=== PATIENT | female | born 1985 | race Caucasian/White ===

== ENCOUNTER 2016-05-19 18:34 | Emergency (ER) | payer OTHER ==
[2016-05-19] MEDS ORDERED: Morphine INJ* 2 MG/ML 1 ML CARPUJECT IV ONE (19:24)
[2016-05-19] MEDS ORDERED: Ondansetron INJ* 2 MG/ML VIAL IV ONE (19:24)
[2016-05-19] MEDS ORDERED: NS 0.9% 1000 ML* 1,000 ML IV ONE (19:24)
--- NOTE | 2016-05-19 19:37 | ED ---
Abdominal Pain/Female - HPI Summary HPI Summary: PT CAME WITH FLANK PAINS RT SIDE. PT WAS HERE FOR THE SAME COMPLAINTS YESTERDAY AND WAS SENT TO [facility]. PT DEVELOPED FLANK PAINS SINCE TWO HOURS AND PAIN IS 10/10. DENIES NAUSEA AND VOMITING. DENIES FEVER. DENIES VAG DISCHARGE AND BLEEDING. - History of Current Complaint Chief Complaint: EDFlankPain Stated Complaint: LOWER BACK PAIN Time Seen by Provider: 05/19/16 19:12 Hx Obtained From: Patient Hx Last Menstrual Period: 07/10/14 ?: Yes Onset/Duration: Sudden Onset Timing: Hours Severity Initially: Severe Severity Currently: Severe Pain Intensity: 10 Location: Flank - RT Radiates to: Flank Character: Sharp Aggravating Factor(s): Movement Alleviating Factor(s): Nothing Associated Signs and Symptoms: Positive: Back Pain Simlar Episode/Dx as:: YES - Risk Factors Ectopic Risk Factor: Negative Ovarian Torsion Risk Factor: Negative Allergies/Adverse Reactions: Allergies Allergy/AdvReac Type Severity Reaction Status Date / Time No Known Allergies Allergy Verified 04/09/16 11:47 PMH/Surg Hx/FS Hx/Imm Hx Endocrine/Hematology History: Denies: Hx Anticoagulant Therapy, Hx Diabetes, Hx Thyroid Disease Cardiovascular History: Reports: Hx Aneurysm Respiratory History: Denies: Hx Asthma, Hx Chronic Obstructive Pulmonary Disease (COPD) GI History: Denies: Hx Ulcer History: Reports: Hx Kidney Infection - Surgical History Surgery Procedure, Year, and Place: tubes in ears as a child, CSECTION 01/2012 - Immunization History Date of Tetanus Vaccine: Unk Date of Influenza Vaccine: Unk Infectious Disease History: No Infectious Disease History: Denies: Hx Clostridium Difficile, Hx Hepatitis, Hx Human Immunodeficiency Virus (HIV), Hx of Known/Suspected MRSA, Hx Shingles, Hx Tuberculosis, Hx Known/ Suspected VRE, Hx Known/Suspected VRSA, History Other Infectious Disease, Traveled Outside the [place] in Last 30 Days - Family History Known Family History: Positive: None, Cardiac Disease, Hypertension, Diabetes - Social History Lives: With Family Alcohol Use: None Alcohol Amount: 2-3/week Substance Use Type: Reports: None Smoking Status (MU): Never Smoked Tobacco Have You Smoked in the Last Year: No Review of Systems Positive: flank pain All Other Systems Reviewed And Are Negative: Yes Physical Exam Triage Information Reviewed: Yes Vital Signs On Initial Exam: Initial Vitals Temp Pulse Resp BP Pulse Ox 97.2 F 121 20 143/75 100 05/19/16 18:39 05/19/16 18:39 05/19/16 18:39 05/19/16 18:39 05/19/16 18:39 Vital Signs Reviewed: Yes Appearance: Positive: Well-Appearing Skin: Positive: Warm Head/Face: Positive: Normal Head/Face Inspection Eyes: Positive: Normal ENT: Positive: Normal ENT inspection, Pharynx normal Neck: Positive: Supple, Nontender Respiratory/Lung Sounds: Positive: Clear to Auscultation, Breath Sounds Present Cardiovascular: Positive: Normal, RRR, Pulses are Symmetrical in both Upper and Lower Extremities Abdomen Description: Positive: CVA Tenderness (R) Bowel Sounds: Positive: Present Musculoskeletal: Positive: Normal Neurological: Positive: Normal Diagnostics - Vital Signs Vital Signs Temp Pulse Resp BP Pulse Ox 05/19/16 18:39 97.2 F 121 20 143/75 100 - Laboratory Result Diagrams: 05/19/16 19:40 05/19/16 19:40 Lab Statement: Any lab studies that have been ordered have been reviewed, and results considered in the medical decision making process. - Ultrasound No standard instances Ultrasound Interpretation: No Acute Changes, Positive (See Comments) - IMPRESSION: MILD TO MODERATE RIGHT HYDRONEPHROSIS, NEW. Ultrasound Interpretation Completed By: Radiologist Re-Evaluation - Re-Evaluation First Eval Re-Evaluation Time: 20:52 - THE PATIENT WILL BE TRANSFERED TO AND D FOR FURTHER EVALUATION. Abdominal Pain Fem Course/Dx - Diagnoses Provider Diagnoses: Flank pain, acute, , Renal colic on right side - Provider Notifications Discussed Care Of Patient With: D/W ACCOUNTING TECHNICIAN DR VALLADARES AND RECOMMENDED US RT RENAL AND CALL HER. 840PM. D/W DR VALLADARES AND RECOMMENDED TO TRANSFER THE PT TO L AND D FOR FURTHER MANGEMENT. Time Discussed With Above Provider: 19:53 Discharge - Discharge Plan Condition: Stable Disposition: OTHER Discharge Disposition Comment: THE PATIENT IS GOING TO L AND D FOR FURTHER EVALUATION. Patient Education Materials: Renal Colic (ED), (ED) Referrals: No Primary Care Phys,NOPCP [Primary Care Provider] -
[2016-05-19 19:55] LABS: Hematocrit 36 % (35-47); Hemoglobin 11.6 g/dl (12.0-16.0); Mean Corpuscular HGB Conc 32 g/dl (31-36); Mean Corpuscular Hemoglobin 27 pg (27-31); Mean Corpuscular Volume 83 fL (80-97); Mean Platelet Volume 10 um3 (7.4-10.4); Red Blood Count 4.31 10^6/ul (4.0-5.4); Red Cell Distribution Width 14 % (10.5-15)
[2016-05-19 20:03] LABS: Urine Bacteria 1+ (Absent); Urine Bilirubin Negative (Negative); Urine Glucose Negative (Negative); Urine Nitrite Negative (Negative)
[2016-05-19 20:09] LABS: Albumin 3.3 g/dL (3.2-5.2); BUN/Creatinine Ratio 14.8 (8-20); EGFR African American 172.9 (>60); EGFR Non-African American 134.4 (>60); Globulin 3.3 g/dL (2-4); Potassium 3.5 mmol/L (3.5-5.0); Total Bilirubin 0.3 mg/dL (0.2-1.0); Total Protein 6.6 g/dL (6.4-8.9)
--- NOTE | 2016-05-19 20:43 | RAD ---
INDICATION: Right flank abdominal pain. COMPARISON: Comparison is made with a prior renal ultrasound from May 18, 2016. TECHNIQUE: Multiple real-time images of the right kidney were obtained. FINDINGS: The right kidney is normal in size shape and echogenicity. The kidney measured 11.5 x 7.3 x 7.7 cm. No focal renal abnormality is seen. There is mild to moderate dilatation of the right renal calyces and pelvis which are new from the prior study. There are bilateral ureteral jets present. IMPRESSION: MILD TO MODERATE RIGHT HYDRONEPHROSIS, NEW.
[2016-05-19 21:08] VITALS: BP 92/51
[2016-05-19] MEDS ORDERED: oxyCODONE/Acetamin 5/325 MG* TAB PO PRN (22:35)
== END 2016-05-19 21:05 ==
LOC: ED 18:34
DX: O26.839 Pregnancy related renal disease, unspecified trimester (principal); N23 Unspecified renal colic; N13.30 Unspecified hydronephrosis
CPT/HCPCS: 36415; 76775; 80053; 81003; 81015; 83690; 85025; 87086; 96374; 99282; J2270; J2405

== ENCOUNTER 2016-05-19 21:23 | Inpatient (IN) | payer OTHER ==
[2016-05-19] MEDS ORDERED: Ondansetron INJ* 2 MG/ML VIAL IV PRN (23:03)
[2016-05-19] MEDS ORDERED: Sodium Citrate/Citric Acid* 15 ML UDC PO ONE (23:04)
[2016-05-19] MEDS: oxyCODONE/Acetamin 5/325 MG* TAB PO PRN (23:58)
[2016-05-20] MEDS: oxyCODONE/Acetamin 5/325 MG* TAB PO PRN ×3 (03:32→18:07)
[2016-05-20] MEDS ORDERED: Morphine INJ* 10 MG/ML 1 ML CARPUJECT ONE (05:37)
[2016-05-20] MEDS ORDERED: HYDROmorphone INJ* 1 MG/ML CARPUJECT SYRINGE IV SLOW PU PRN (09:10)
[2016-05-20] MEDS ORDERED: HYDROmorphone INJ* 2 MG/ML CARPUJECT SYRINGE ONE (09:39)
[2016-05-20] MEDS ORDERED: Morphine INJ* 2 MG/ML 1 ML CARPUJECT IV ONE (14:00)
--- NOTE | 2016-05-20 15:22 | CONS ---
CONSULTATION REPORT: DATE OF CONSULT: 05/20/16 The patient is in Labor and Delivery. HISTORY OF PRESENT ILLNESS: I was asked by Dr. Conner to see this 30-year-old white female who is 33 weeks because of symptoms of right renal colic. Ms. Lancaster was doing fine until 4 days ago when she had gross hematuria. It was totally asymptomatic, not associated with any flank or abdominal pain and did not have any increasing frequency or urgency. She was evaluated at [facility]. She had a urine culture done, she felt fine. The culture was negative. She was then evaluated in Labor and Delivery 2 days ago and was sent home. Yesterday, the patient presented to the emergency room with symptoms of right renal colic. The pain was very severe. She had a renal ultrasound which showed mild to moderate right hydronephrosis. No calculi were noted in the kidneys. The patient was admitted for IV fluids and pain control. consultation is obtained. The patient has been having on and off episodes of pain that have been well controlled with Dilaudid. Her last pain medication was about 3 hours ago. She has been pain free since that time. Her past history is negative for any history of renal diseases or calculi. She reports having had a possible episode of pyelonephritis during her previous for which she received IV antibiotics. There is however, no history of renal calculi. The patient is otherwise in good health. She denies any frequent urinary tract infections. PHYSICAL EXAM: She is comfortable. Her vital signs are normal. The positive finding incudes moderate right CVA tenderness. IMPRESSION: Episodes of right renal colic, most likely secondary to passage of a right ureteral calculus. The calculus is not visualized on our present imaging. Considering the hydronephrosis is only moderate, and there good equal bilateral ureteral jets, and that the pain is well controlled, and there is no evidence of any infection, the plan is for conservative management with IV fluids and pain medication as needed. I would recommend straining her urine. If the pain becomes difficult to control , then the patient will be taken to the operating room for right ureteroscopy and stent placement. A follow up renal ultrasound will be done tomorrow. I discussed the above plans with the patient and with her mother and all their questions were answered. [id number]/[facility] #: [id number] TIGIST
[2016-05-21 08:19] VITALS: BP 97/46
[2016-05-21] MEDS: oxyCODONE/Acetamin 5/325 MG* TAB PO PRN (09:37)
--- NOTE | 2016-05-21 10:14 | RAD ---
HISTORY: Follow-up hydronephrosis COMPARISONS: May 19, 2016 TECHNIQUE: Multiple transverse and longitudinal ultrasound images were obtained of the kidneys and bladder using grayscale and color Doppler imaging. FINDINGS: RIGHT KIDNEY: The right kidney is normal in shape, size, contour, and echogenicity. There is moderate pelviectasis with interval resolution of the caliectasis. The right kidney measures 12.3 x 6.7 x 5.8 cm. LEFT KIDNEY: The left kidney is normal in shape, size, contour, and echogenicity. There is no hydronephrosis or nephrolithiasis. The left kidney measures 11.6 x 6.8 x 4.7 cm. BLADDER: The bladder is smooth in contour. Bilateral ureteral jets are identified. The prevoid bladder is 145 cc. AORTA AND IVC: No images are submitted of the vasculature. RETROPERITONEUM: Unremarkable. OTHER: None. IMPRESSION: PERSISTENT BUT SLIGHTLY IMPROVED RIGHT HYDRONEPHROSIS.
--- NOTE | 2016-05-21 13:51 | DS ---
DISCHARGE SUMMARY: DATE OF ADMISSION: 05/19/16 DATE OF DISCHARGE: 05/21/16 HISTORY OF PRESENT ILLNESS: Mrs. Lancaster is a 30-year-old female at 33- 2/7 weeks' estimated gestational age. She was admitted on 05/19/16 with complaints of right flank pain. She was evaluated and diagnosed with right hydronephrosis, right renal calculi. She was treated with IV hydration, antiemetics, and pain medications, and observed on the floor. There was also a Urology consult by Dr. Spencer. On the day of discharge, the patient had a repeat ultrasound which showed slightly improved moderate right hydronephrosis. The patient's vital signs throughout her hospital stay remained stable. She was afebrile and clinically her pain improved with p.o. medications. The patient was discharged home. She is to follow with [facility] , and was given discharge instruction. Please refer to the patient's lab and radiology results for complete detail of her workup. [id number]/[facility] #: [id number] TIGIST
== END 2016-05-21 11:04 | disposition home or self-care (01) | DRG 566 ==
LOC: MCHOBOUT 21:23 → MCHOB 05-20 17:38
PROVIDERS: ADMIT Obstetrics & Gynecology; ATTEND Obstetrics & Gynecology
DX: O26.893 Other specified pregnancy related conditions, third trimester (principal); Z68.41 Body mass index [BMI] 40.0-44.9, adult; N13.30 Unspecified hydronephrosis; N23 Unspecified renal colic; O99.213 Obesity complicating pregnancy, third trimester; E66.01 Morbid (severe) obesity due to excess calories; O99.343 Other mental disorders complicating pregnancy, third trimester; F32.9 Major depressive disorder, single episode, unspecified; G43.909 Migraine, unspecified, not intractable, without status migrainosus; R31.0 Gross hematuria; Z3A.33 33 weeks gestation of pregnancy
CPT/HCPCS: 36415; 76770; 86850; 86900; 86901; A9270-GY; J1170; J2270

== ENCOUNTER 2016-06-03 12:35 | Observation (INO) | payer OTHER ==
[2016-06-03] MEDS ORDERED: Iohexol 180 (CONTRAST) 10 ML SDV IV ONE ×2 (14:44→16:38)
[2016-06-03 15:08] LABS: Hematocrit 34 % (35-47); Mean Corpuscular HGB Conc 32 g/dl (31-36); Mean Corpuscular Hemoglobin 27 pg (27-31); Mean Corpuscular Volume 84 fL (80-97); Mean Platelet Volume 11 um3 (7.4-10.4); Red Cell Distribution Width 14 % (10.5-15); White Blood Count 12.4 10^3/ul (3.5-10.8)
[2016-06-03] MEDS ORDERED: Morphine INJ* 10 MG/ML 1 ML CARPUJECT ONE (16:17)
[2016-06-03] MEDS ORDERED: cefTRIAXone VIAL(*) 1,000 MG VIAL ONE (16:39)
[2016-06-03] MEDS ORDERED: Chloroprocaine 2%* 20 ML VIAL ONE (16:56)
[2016-06-03] MEDS ORDERED: Propofol* 10 MG/ML 20 ML BTL IV PUSH ONE (16:56)
[2016-06-03] MEDS ORDERED: Sodium Citrate/Citric Acid* 15 ML UDC PO ONE (17:01)
[2016-06-03] MEDS ORDERED: Sodium Citrate/Citric Acid* 15 ML UDC ONE (17:03)
[2016-06-03] MEDS ORDERED: Phenylephrine IV* 40 MCG/ML 10 ML SYRINGE ONE ×2 (18:19→18:27)
[2016-06-03] MEDS ORDERED: Ondansetron INJ* 2 MG/ML VIAL ONE (18:50)
--- NOTE | 2016-06-03 19:22 | RAD ---
INDICATION: Right ureteral stone COMPARISONS: Ultrasound dated June 03, 2016 TECHNIQUE: Fluoroscopy was provided for a retrograde pyelogram and stent placement. Total fluoroscopy time is: 7 seconds FINDINGS: Spot images demonstrate contrast within a dilated right ureteral collecting system. A right ureteral stent is noted. IMPRESSION: FLUOROSCOPY WAS PROVIDED FOR A RETROGRADE PYELOGRAM AND STENT PLACEMENT CPT II Codes: 6045F
[2016-06-03] MEDS ORDERED: Ondansetron INJ* 2 MG/ML VIAL IV PRN (19:23)
[2016-06-03] MEDS ORDERED: fentaNYL* 50 MCG/ML 2 ML VIAL (100 MCG VIAL) IV PRN (19:23)
[2016-06-03 19:46] VITALS: BP 149/86
--- NOTE | 2016-06-04 11:28 | OP ---
DATE OF OPERATION: 06/03/16 - ROOM #112 DATE OF : 89 SURGEON: Samuel Spencer MD ANESTHESIOLOGIST: Dr. Macho Teran. ANESTHESIA: Spinal. PRE-OP DIAGNOSES: 1. Right renal colic. 2. Right hydronephrosis. 3. 35 weeks' gestation. POST-OP DIAGNOSES: 1. Right renal colic. 2. Right hydronephrosis. 3. 35 weeks' gestation. 4. Proximal right ureteral calculus (6 to 7 mm). OPERATIVE PROCEDURES: 1. Cystoscopy. 2. Right ureteroscopy and laser lithotripsy of right ureteral calculus. 3. Right retrograde pyelography and placement of right ureteral stent (6 Niuean ). INDICATIONS FOR PROCEDURE: Ms. Lancaster is a 30-year-old white female who is 35 weeks and whom I saw 2 weeks ago because of symptoms of right renal colic. At that time, renal ultrasound showed mild to moderate hydronephrosis. No calculus was noted on the ultrasound. She was managed conservatively and did fine. She presented back 2 days ago with recurrence of the Rt renal colic and renal ultrasound showed moderate right hydronephrosis and no ureteral jets noted from the right ureteral orifice. Because of the above history and findings and the recurrent episodes of pain, the above procedure was advised and accepted. PATHOLOGY AT CYSTOSCOPY: The bladder mucosa showed diffuse prominence and congestion of the submucosal veins consistent with the third stage of . Extrinsic compression was noted on the bladder from the gravid uterus. Upon right retrograde pyelography, there was moderate degree of hydronephrosis. Upon right ureteroscopy, a 6 to 7 mm calculus was noted in the proximal right ureter. The calculus was impacted. It had the gross appearance of a calcium phosphate stone. Hydronephrotic drip was noted from the kidney following the placement of the stent. DESCRIPTION OF PROCEDURE: After successful spinal anesthesia, the patient was placed in the dorsal lithotomy position. Her uterus was shielded with x-ray aprons visualizing only the right kidney. She was then prepped and draped for cystoscopy. Cystoscopy was then performed. The bladder was inspected and the above findings were noted. A flexible-tip guidewire was then introduced into the right orifice and positioned in the area of the renal pelvis. A size 5 Niuean open-ended catheter was fed on top of the guidewire and there was resistance to the introduction of the catheter in the area of the proximal ureter. Retrograde pyelography was then performed, confirming the proper positioning of the guidewire. A size 6.5 semi-rigid ureteroscope was then introduced inside the bladder. A flexible tip basket was introduced through the port of the ureteroscope and was used as a guide to introduce the ureteroscope inside the right ureter. Ureteroscopy was performed in an atraumatic way. The calculus was seen in the proximal ureter. The basket was deployed and the stone was engaged, preventing its proximal migration into the renal pelvis. Size 550-micron laser fiber was then introduced through the other port of the ureteroscope and was used to fragment the stone into multiple fragments. The larger fragments were then extracted with the basket and sent for stone analysis. Ureteroscopy and pyeloscopy was performed, and no residual calculi were noted, and there ureteral wall looked intact. The cystoscope was reintroduced inside the bladder over the guidewire. A size 6 - Niuean stent was then placed with the proximal end coiling in the renal pelvis and the distal end coiling inside the bladder. There was prompt drainage of contrast from the kidney and no extravasation. The patient tolerated the procedure well and left the operating room in good condition. The plan is to leave the stent in place for 7 to 10 days, it will be removed in the office under local anesthesia. The patient will be maintained on suppressive antibiotics with Keflex 500 mg at bedtime until the stent is removed. A dosimeter had been placed over the uterus at the beginning of the procedure. The fluoroscopy exposure was measured at the end of the procedure and was 0. CC: Dr. Gallego* [id number]/[facility] #: [id number] TIGIST
== END 2016-06-03 22:55 | disposition home or self-care (01) ==
LOC: INTOOBSV 13:09 → MCHOB 13:09
PROVIDERS: ADMIT Obstetrics & Gynecology; ATTEND Obstetrics & Gynecology
PROC: 0TC68ZZ Extirpation of Matter from Right Ureter, Via Natural or Artificial Opening Endoscopic (ICD-10-PCS; 2016-06-03)
PROC: BT1DZZZ Fluoroscopy of Right Kidney, Ureter and Bladder (ICD-10-PCS; 2016-06-03)
PROC: 0TF68ZZ Fragmentation in Right Ureter, Via Natural or Artificial Opening Endoscopic (ICD-10-PCS; principal; 2016-06-03 17:00)
DX: O26.893 Other specified pregnancy related conditions, third trimester (principal); Z3A.35 35 weeks gestation of pregnancy; N13.2 Hydronephrosis with renal and ureteral calculous obstruction
CPT/HCPCS: 36415; 74420; 82365; 85025; 88300; A9270-GY; C1876; G0378; J0696; J2270; J2400; J2405; J2704

== ENCOUNTER 2016-06-16 16:58 | Observation (INO) | payer OTHER ==
[2016-06-16 17:57] LABS: Hematocrit 34 % (35-47); Hemoglobin 11.3 g/dl (12.0-16.0); Mean Corpuscular HGB Conc 33 g/dl (31-36); Mean Corpuscular Hemoglobin 28 pg (27-31); Mean Corpuscular Volume 84 fL (80-97); Mean Platelet Volume 10 um3 (7.4-10.4); Red Blood Count 4.11 10^6/ul (4.0-5.4); Red Cell Distribution Width 14 % (10.5-15); White Blood Count 10.5 10^3/ul (3.5-10.8)
[2016-06-16 18:12] LABS: ALT 13 U/L (7-52); Albumin 3.3 g/dL (3.2-5.2); Alkaline Phosphatase 112 U/L (34-104); BUN/Creatinine Ratio 13.7 (8-20); Blood Urea Nitrogen 7 mg/dL (6-24); CO2 Carbon Dioxide 18 mmol/L (22-32); Chloride 105 mmol/L (101-111); EGFR African American 184.7 (>60); EGFR Non-African American 143.6 (>60); Globulin 3.7 g/dL (2-4); Glucose 81 mg/dL (70-100); Sodium 133 mmol/L (133-145)
[2016-06-16 18:58] LABS: Urine Bacteria Absent (Absent); Urine Bilirubin Negative (Negative); Urine Glucose Negative (Negative); Urine Nitrite Negative (Negative)
--- NOTE | 2016-06-16 19:01 | RAD ---
HISTORY: Cough, shortness of breath COMPARISONS: None VIEWS: 2: Frontal and lateral views of the chest. FINDINGS: CARDIOMEDIASTINAL SILHOUETTE: The cardiomediastinal silhouette is normal. KAREN: The karen are normal. PLEURA: The costophrenic angles are sharp. No pleural abnormalities are noted. LUNG PARENCHYMA: The lungs are clear. ABDOMEN: The upper abdomen is clear. There is no subphrenic gas. BONES AND SOFT TISSUES: No bone or soft tissue abnormalities are noted. OTHER: None. IMPRESSION: NO ACTIVE CARDIOPULMONARY DISEASE.
[2016-06-16] MEDS ORDERED: Acetaminophen TAB* 325 MG PO PRN (19:35)
[2016-06-16] MEDS: Cephalexin CAP* 500 MG PO SCH (21:16)
[2016-06-16] MEDS: Oseltamivir CAP* 75 MG PO SCH (21:16)
[2016-06-16] MEDS ORDERED: Acetaminophen TAB* 325 MG ONE (21:25)
[2016-06-16] MEDS: guaiFENesin LIQ* 100 MG/5 ML UDC PO PRN (21:26)
--- NOTE | 2016-06-16 23:13 | CONS ---
* AMENDED REPORT NOW INCLUDES DATE OF CONSULT AND COSIGNER - ESIGNED BEFORE ADJUSTMENT * HOSPITAL MEDICINE CONSULTATION REPORT: DATE OF CONSULT: 06/16/16 ATTENDING PHYSICIAN: Dr. Dorian Gallego. CONSULTING PHYSICIAN: Dr. Jaxon Martin * (dictation provided by Mariely Owens NP). REASON FOR ADMISSION: Cough, nausea, vomiting, with positive flu swab. REASON FOR CONSULTATION: Shortness of breath. HISTORY OF PRESENT ILLNESS: Ms. Lancaster is a 30-year-old female who is 2, para 1, and currently 37 weeks who presented to the hospital stay with concerns for nausea, vomiting and cough. I refer you to dictation from Dr. Gallego for details as well. Per Ms. Lancaster, she has had nausea for about 2 weeks and developed vomiting today. She has had 3 days of fever. On Friday night, she felt feverish, but was unable to take a temperature because she does not have a thermometer. She had chills. She took Tylenol and felt better the next morning. She felt relatively well through Friday; but on Friday morning, she awoke and had vomiting and a non- productive but harsh cough. She came into the emergency room for evaluation. She states she has not eaten today, but prior to that, she had been tolerating oral intake okay. She has had normal formed bowel movements. Ms. Lancaster states she has had a rough . She reports having subchorionic bleeding, hypotension, severe nausea, and recent kidney stone to right ureter that was treated by Dr. Spencer on 06/06/16. She states that other than her history, she has no medical history, no surgeries, and takes only vitamins routinely. PAST MEDICAL HISTORY: 1. Nephrolithiasis s/p lithotripsy and stent placement (now removed). MEDICATIONS: 1. vitamins. 2. Cephalexin 500mg po BID. ALLERGIES: No known drug allergies. FAMILY HISTORY: Reviewed and noncontributory. SOCIAL HISTORY: The patient denies alcohol, tobacco, or drug use. She states her mom is the healthcare proxy. She states she is a single mom with a 4-year- old child. REVIEW OF SYSTEMS: A 14-point review of systems was completed with Ms. Lancaster and all those not mentioned above were negative. PHYSICAL EXAM: Vital signs are pending as the patient has just moved to the pediatric floor. General: Ms. Lancaster is sitting up in the bed. She appears tired, but in no acute distress. Neuro: She is alert and oriented x3. She moves all extremities equally. There is no facial asymmetry or focal weakness. Extraocular movements are intact. Heart: S1, S2. Rapid, but regular. Lungs are clear to auscultation bilaterally with no accessory muscle use and good aeration. The abdomen is protuberant consistent with . The patient is obese. Extremities: No cyanosis or edema. Skin is intact. DIAGNOSTIC STUDIES/LAB DATA: WBC 10.5, hemoglobin 11.3, hematocrit 34, platelet count 249. Sodium 133, potassium was unable to be processed. Chloride 105, sodium bicarbonate 18, BUN 7, creatinine 0.51. Glucose 81. Flu A is positive. Chest x- ray shows no acute process. ASSESSMENT: Ms. Lancaster is a 30-year-old female who is 2, para 0 who is currently 37 weeks and presents to the hospital with report of fever , cough, nausea and vomiting, and found to be positive for flu A. She has been admitted by Dr. Gallego from Obstetrics and Dr. Gallego has requested consultation from the hospital medicine team for shortness of breath. Plan: 1. SOB: I believe that Ms. Lancaster' shortness of breath is secondary to her flu. She shows no evidence of concomitant bacterial pneumonia as her chest x- ray is clear. She has no leukocytosis. She is mildly tachycardic at rest. I anticipate she will benefit from intravenous fluids. Otherwise, I think she should continue with Tylenol and guaifenisen for symptomatic relief. 2. : Management will be per Ob. 3. Code status is full code. Thank you very much for this kind consultation. We will continue to follow along with you while Ms. Lancaster is hospitalized. TIME SPENT: Approximately 60 minutes were spent on the admission of this patient, more than half time spent with the patient at the bedside reviewing the events leading up to this hospitalization, performing the physical examination, and reviewing the plan [place] [id number]/[facility] #: [id number] TIGIST
[2016-06-17] MEDS: guaiFENesin LIQ* 100 MG/5 ML UDC PO PRN ×3 (02:31→14:49)
[2016-06-17] MEDS: Oseltamivir CAP* 75 MG PO SCH (09:01)
[2016-06-17] MEDS: Cephalexin CAP* 500 MG PO SCH (09:01)
[2016-06-17 12:38] VITALS: BP 110/50
--- NOTE | 2016-06-17 15:01 | PN ---
Subjective Date of Service: 06/17/16 Interval History: Patient seen and examined at bedside. She reports feeling a little bit better but states that she feels reflux when she lays down. She has a productive cough. She denies CP, abd pain, n/v. She gets SOB with exertion. Patient advised to stay sitting up for a few hours after eating, which she agreed to. Patient also advised to use pillows to prop herself up in bed to promote comfort Family History: Unchanged from Admission Social History: Unchanged from Admission Past Medical History: Unchanged from Admission Objective Active Medications: Acetaminophen (Tylenol Tab*) 650 mg PO Q4H PRN PRN Reason: PAIN Last Admin: 06/16/16 21:26 Dose: 650 mg Cephalexin HCl (Keflex Cap*) 500 mg PO BID ANDRE Last Admin: 06/17/16 09:01 Dose: 500 mg Guaifenesin (Robitussin*) 5 ml PO Q4H PRN PRN Reason: COUGH Last Admin: 06/17/16 14:49 Dose: 5 ml Lactated Ringer's (Lactated Ringers 1000 Ml Bag*) 1,000 mls @ 125 mls/hr IV PER RATE [facility] Oseltamivir Phosphate (Tamiflu Cap*) 75 mg PO BID [facility] Stop: 06/21/16 09:01 Last Admin: 06/17/16 09:01 Dose: 75 mg Vital Signs 06/16/16 06/16/16 06/16/16 17:19 18:45 18:51 Temperature 99.1 F 98.9 F 100.0 F Pulse Rate 122 118 119 Respiratory 24 20 24 Rate Blood Pressure 69/41 114/57 79/52 (mmHg) O2 Sat by Pulse 98 98 97 Oximetry 06/16/16 06/17/16 06/17/16 19:00 00:15 04:27 Temperature 98.9 F 99.4 F 98.6 F Pulse Rate 118 91 94 Respiratory 20 18 18 Rate Blood Pressure 114/57 133/57 108/58 (mmHg) O2 Sat by Pulse 98 96 98 Oximetry 06/17/16 06/17/16 06/17/16 08:31 08:39 08:40 Temperature 98.4 F Pulse Rate 96 Respiratory 18 18 18 Rate Blood Pressure 97/66 (mmHg) O2 Sat by Pulse 100 Oximetry 06/17/16 06/17/16 12:26 12:38 Temperature 97.8 F Pulse Rate 80 Respiratory 22 Rate Blood Pressure 110/50 (mmHg) O2 Sat by Pulse 100 Oximetry Oxygen Devices in Use Now: None Appearance: Young female, sitting up in bed, in NAD Eyes: PERRLA Ears/Nose/Mouth/Throat: Clear Oropharnyx, Mucous Membranes Moist Neck: NL Appearance and Movements; NL JVP Respiratory: Symmetrical Chest Expansion and Respiratory Effort, Clear to Auscultation Cardiovascular: NL Sounds; No Murmurs; No JVD, RRR Abdominal: NL Sounds; No Tenderness; No Distention - Extremities: No Edema Skin: No Rash or Ulcers Neurological: Alert and Oriented x 3 Lines/Tubes/Other Access: Clean, Dry and Intact Peripheral IV Nutrition: Taking PO's Result Diagrams: 06/16/16 17:45 06/16/16 17:45 Microbiology and Other Data: Microbiology 06/16/16 17:45 Influenza Types A,B Antigen (LATA) - Final Nasal Specimen received for Influenza A/B Molecular testing Assess/Plan/Problems-Billing Assessment: Ms. Lancaster is a 30 yo female with a PMH of nephrolithiasis and who is 37 weeks () that is admitted for SOB secondary to influenza. - Patient Problems (1) Influenza Code(s): J11.1 - FLU DUE TO UNIDENTIFIED INFLUENZA VIRUS W OTH RESP MANIFEST Comment: Stable, continue Tamiflu, guaifenesin, and supportive care. Outpatient follow-up with PCP (2) 37 weeks gestation of Code(s): Z3A.37 - 37 WEEKS GESTATION OF Comment: Management per OB Status and Disposition: Disposition per obstetrics. Thank you for this consultation.
--- NOTE | 2016-06-17 23:12 | DS ---
DISCHARGE SUMMARY: DATE OF ADMISSION: 06/16/16 DATE OF DISCHARGE: 06/17/16 ADMITTING DIAGNOSIS: Upper respiratory tract infection. DISCHARGE DIAGNOSIS: Influenza A. HOSPITAL COURSE: The patient was admitted and was tachycardic and found to be dehydrated. Flu swab came back positive for influenza A. She was rehydrated with IV fluids and feeling much better by the following day. She was also started on Tamiflu. She is 37 weeks . status remained reassuring throughout her stay. DISCHARGE DISPOSITION: Home. DISCHARGE INSTRUCTIONS: The patient will follow up with her OB visit as scheduled tomorrow and will call with any worsening symptoms. [id number]/[facility] #: [id number] MTDD
== END 2016-06-17 15:15 | disposition home or self-care (01) ==
LOC: MCHOBOUT 16:58 → MCHPEDS 20:50
PROVIDERS: ADMIT Obstetrics & Gynecology; ATTEND Obstetrics & Gynecology
DX: O26.893 Other specified pregnancy related conditions, third trimester (principal); Z3A.37 37 weeks gestation of pregnancy; J09.X2 Influenza due to identified novel influenza A virus with other respiratory manifestations; E86.0 Dehydration; R06.02 Shortness of breath; Z79.899 Other long term (current) drug therapy
CPT/HCPCS: 36415; 71020; 80053; 81003; 81015; 85025; 87086; 87502; A9270-GY; G0378; G0379

== ENCOUNTER 2016-06-23 01:24 | Emergency (ER) | payer OTHER ==
[2016-06-23 01:33] VITALS: BP 132/67
[2016-06-23] MEDS ORDERED: Amoxicillin PO (*) 500 MG CAP PO ONE (02:02)
[2016-06-23] MEDS ORDERED: oxyCODONE/Acetamin 5/325 MG* TAB PO ONE (02:04)
--- NOTE | 2016-06-23 02:31 | ED ---
Nasir Kemp Karl, scribed for BartolomenoahRobertLong on 06/23/16 at 0206 . Throat Pain/Nasal Congestion - HPI Summary HPI Summary: 30 y/o F presents w/ c/o severe ear pain in her right ear that woke her up from sleep at 23:30. Pt stated that she recently finished a course of Tamiflu. Pt denied TERRY and CP. Pt is 36 weeks . - History of Current Complaint Chief Complaint: EDEarPain Time Seen by Provider: 06/23/16 01:45 Hx Obtained From: Patient Onset/Duration: Gradual Onset, Lasting Days, Still Present - Allergies/Home Medications Allergies/Adverse Reactions: Allergies Allergy/AdvReac Type Severity Reaction Status Date / Time No Known Allergies Allergy Verified 06/23/16 01:35 PMH/Surg Hx/FS Hx/Imm Hx Previously Healthy: Yes Endocrine/Hematology History: Denies: Hx Anticoagulant Therapy, Hx Diabetes, Hx Thyroid Disease Cardiovascular History: Denies: Hx Hypertension Respiratory History: Denies: Hx Asthma, Hx Chronic Obstructive Pulmonary Disease (COPD) GI History: Denies: Hx Ulcer History: Reports: Hx Kidney Stones - RIGHT, Other Problems/Disorders - hx of kidney stones with stent/stent removed 06/12 Psychiatric History: Reports: Hx Anxiety, Hx Depression - Surgical History Surgery Procedure, Year, and Place: tubes in ears as a child, CSECTION 01/2012 - Immunization History Date of Tetanus Vaccine: Unk Date of Influenza Vaccine: Unk Infectious Disease History: No Infectious Disease History: Denies: Hx Clostridium Difficile, Hx Hepatitis, Hx Human Immunodeficiency Virus (HIV), Hx of Known/Suspected MRSA, Hx Shingles, Hx Tuberculosis, Hx Known/ Suspected VRE, Hx Known/Suspected VRSA, History Other Infectious Disease, Traveled Outside the [place] in Last 30 Days - Family History Known Family History: Positive: Cardiac Disease, Hypertension, Diabetes - Social History Alcohol Use: None Substance Use Type: Reports: None Smoking Status (MU): Never Smoked Tobacco Have You Smoked in the Last Year: No Review of Systems Constitutional: Negative Eyes: Negative Positive: Ear Ache Negative: Chest Pain Respiratory: Negative Gastrointestinal: Negative Genitourinary: Negative Musculoskeletal: Negative Skin: Negative Positive: Headache Psychological: Normal All Other Systems Reviewed And Are Negative: Yes Physical Exam Triage Information Reviewed: Yes Vital Signs On Initial Exam: Initial Vitals Temp Pulse Resp BP Pulse Ox 97.8 F 100 18 132/67 99 06/23/16 01:29 06/23/16 01:29 06/23/16 01:29 06/23/16 01:29 06/23/16 01:29 Vital Signs Reviewed: Yes Appearance: Positive: Well-Appearing, No Pain Distress Skin: Positive: Warm, Skin Color Reflects Adequate Perfusion, Dry Head/Face: Positive: Normal Head/Face Inspection Eyes: Positive: EOMI, NAOMY ENT: Positive: Other - right tympanic membrane is congessted and red, mild discharge in external ear canal Neck: Positive: Supple, Nontender Respiratory/Lung Sounds: Positive: Clear to Auscultation, Breath Sounds Present Cardiovascular: Positive: RRR, Pulses are Symmetrical in both Upper and Lower Extremities Abdomen Description: Positive: Nontender, Soft Bowel Sounds: Positive: Present Musculoskeletal: Positive: Normal, Strength/ROM Intact Neurological: Positive: Normal, Sensory/Motor Intact, Alert, Oriented to Person Place, Time Psychiatric: Positive: Affect/Mood Appropriate Diagnostics - Vital Signs Vital Signs Temp Pulse Resp BP Pulse Ox 06/23/16 01:29 97.8 F 100 18 132/67 99 - Laboratory Lab Statement: Any lab studies that have been ordered have been reviewed, and results considered in the medical decision making process. EENT Course/Dx - Diagnoses Provider Diagnoses: Otitis media, Discharge - Discharge Plan Condition: Stable Disposition: HOME Prescriptions: Amoxicillin CAP* 875 mg PO Q12H #20 cap oxyCODONE/Acetamin 5/325 MG* [Percocet 5/325 TAB*] 1 tab PO Q8H PRN #10 tab MDD 3 PRN Reason: Pain Patient Education Materials: Otitis Media (ED) Referrals: Dorian Gallego MD [Primary Care Provider] - Additional Instructions: Please follow up with your primary care provider within the next 3 days. The documentation as recorded by the Nasir hawk Karl accurately reflects the service I personally performed and the decisions made by Jacques andres Emmanuel.
[2016-06-23] MEDS ORDERED: Amoxicillin PO (*) 875 MG TAB PO ONE (03:00)
== END 2016-06-23 02:28 | disposition home or self-care (01) ==
LOC: ED 01:24
DX: O26.893 Other specified pregnancy related conditions, third trimester (principal); H66.91 Otitis media, unspecified, right ear; Z3A.36 36 weeks gestation of pregnancy
CPT/HCPCS: 99282; A9270-GY

== ENCOUNTER 2016-07-02 06:01 | Inpatient (IN) | payer OTHER ==
[~2016-07-02 06:01] MED LIST: Buffered Lidocaine 1% SYRIN* 3 ML/SYR SYRINGE INTRADERM ONE; Sodium Citrate/Citric Acid* 15 ML UDC PO ONE
[2016-07-02] MEDS ORDERED: Sodium Citrate/Citric Acid* 15 ML UDC ONE (06:04)
[2016-07-02] MEDS ORDERED: ceFOXitin 2 GM IVPREMIX* 2 GM/50 ML BAG ONE (06:06)
[2016-07-02] MEDS ORDERED: Morphine PF AMP (0.5MG/ML)* 5 MG/10 ML AMP ONE (07:37)
[2016-07-02] MEDS ORDERED: OXYTOCIN* 10 UNITS/ML 1 ML VIAL ONE (07:44)
[2016-07-02] MEDS ORDERED: Phenylephrine IV* 40 MCG/ML 10 ML SYRINGE ONE (08:20)
[2016-07-02] MEDS ORDERED: fentaNYL* 50 MCG/ML 2 ML VIAL (100 MCG VIAL) IV PRN (08:26)
[2016-07-02] MEDS ORDERED: Ondansetron INJ* 2 MG/ML VIAL ONE (08:26)
[2016-07-02] MEDS ORDERED: Scopolamine 1.5 mg* PATCH TRANSDERM PRN (08:26)
[2016-07-02] MEDS ORDERED: oxyCODONE TAB* 5 MG TAB PO PRN ×2 (08:26→08:33)
[2016-07-02] MEDS ORDERED: PROCHLORPERAZINE INJ 5 MG/ML 2 ML VIAL IV PRN ×2 (08:26→13:22)
[2016-07-02] MEDS ORDERED: Nalbuphine* 20 MG/ML 1 ML VIAL IV PRN ×2 (08:26→08:33)
[2016-07-02] MEDS ORDERED: Naloxone* 0.4 MG/ML 1 ML VIAL IV PRN (08:33)
[2016-07-02] MEDS ORDERED: Scopolomine PATCH Remove* 1 NOTE MISC PATCH OFF SCH (09:00)
[2016-07-02] MEDS ORDERED: Scopolamine 1.5 mg* PATCH TRANSDERM SCH (09:00)
[2016-07-02] MEDS ORDERED: Witch Hazel PAD* JAR TOPICAL PRN (09:17)
[2016-07-02] MEDS ORDERED: Zolpidem TAB* 5 MG PO PRN (09:17)
[2016-07-02] MEDS ORDERED: Glycerin ADULT SUPP PR PRN (09:17)
[2016-07-02] MEDS ORDERED: Dibucaine 1% 28.35 GM TUBE PR PRN (09:17)
[2016-07-02] MEDS ORDERED: Ketorolac INJ* 30 MG/ML 1 ML VIAL IV SCH (09:30)
[2016-07-02] MEDS ORDERED: Acetaminophen IV 1GM/100ML * 100 ML IVPB ONE (09:30)
[2016-07-02] MEDS ORDERED: Oxytocin in LR* 20 UNITS/1,000 ML BAG IVPB SCH (10:00)
[2016-07-02] MEDS: Ondansetron INJ* 2 MG/ML VIAL IV PRN ×2 (10:05→20:11)
[2016-07-02] MEDS: Simethicone CHEW TAB* 80 MG PO SCH ×3 (13:14→20:11)
[2016-07-02] MEDS: Docusate CAP* 100 MG PO SCH ×2 (13:31→21:52)
[2016-07-02] MEDS: Acetaminophen TAB* 325 MG PO SCH (17:35)
[2016-07-02] MEDS: Ketorolac INJ* 30 MG/ML 1 ML VIAL IV SCH ×2 (17:35→20:10)
[2016-07-03] MEDS: Acetaminophen TAB* 325 MG PO SCH ×2 (00:48→11:06)
[2016-07-03] MEDS: Ketorolac INJ* 30 MG/ML 1 ML VIAL IV SCH ×2 (04:44→11:15)
[2016-07-03] MEDS: oxyCODONE/Acetamin 5/325 MG* TAB PO PRN ×4 (08:34→20:56)
[2016-07-03] MEDS: Simethicone CHEW TAB* 80 MG PO SCH ×4 (08:34→20:56)
[2016-07-03] MEDS: Docusate CAP* 100 MG PO SCH ×3 (08:34→20:56)
[2016-07-03] MEDS ORDERED: Ferrous Gluconate TAB* 324 MG TAB PO SCH (09:00)
[2016-07-03 09:20] LABS: Hematocrit 34 % (35-47); Hemoglobin 10.9 g/dl (12.0-16.0); Mean Corpuscular HGB Conc 32 g/dl (31-36); Mean Corpuscular Hemoglobin 27 pg (27-31); Mean Corpuscular Volume 84 fL (80-97); Mean Platelet Volume 10 um3 (7.4-10.4); Red Blood Count 4.04 10^6/ul (4.0-5.4); Red Cell Distribution Width 15 % (10.5-15); White Blood Count 11.6 10^3/ul (3.5-10.8)
[2016-07-03] MEDS ORDERED: Ibuprofen TAB* 600 MG ONE (11:42)
[2016-07-03] MEDS: Ibuprofen TAB* 600 MG PO SCH ×2 (11:45→18:08)
[2016-07-03] MEDS ORDERED: Ibuprofen TAB* 600 MG PO PRN (15:30)
[2016-07-03] MEDS ORDERED: Acetaminophen TAB* 325 MG PO PRN (17:30)
[2016-07-04] MEDS: Ibuprofen TAB* 600 MG PO SCH ×4 (00:34→20:02)
[2016-07-04] MEDS: oxyCODONE/Acetamin 5/325 MG* TAB PO PRN ×5 (00:35→20:01)
[2016-07-04] MEDS: Docusate CAP* 100 MG PO SCH ×3 (07:22→20:02)
[2016-07-04] MEDS: Simethicone CHEW TAB* 80 MG PO SCH ×4 (07:22→20:01)
[2016-07-04] MEDS ORDERED: Measles, Mumps,Rubella VACC* 0.5 ML/VIAL SUBCUT ONE (19:47)
[2016-07-05] MEDS: oxyCODONE/Acetamin 5/325 MG* TAB PO PRN ×3 (00:24→11:11)
[2016-07-05] MEDS: Ibuprofen TAB* 600 MG PO SCH ×2 (02:37→08:05)
[2016-07-05] MEDS: Simethicone CHEW TAB* 80 MG PO SCH (08:05)
[2016-07-05] MEDS: Docusate CAP* 100 MG PO SCH (08:05)
[2016-07-05] MEDS ORDERED: Scopolomine PATCH Remove* 1 NOTE MISC PATCH OFF ONE (08:28)
[2016-07-05 08:48] VITALS: BP 124/71
--- NOTE | 2016-07-12 00:29 | OP ---
DATE OF OPERATION: 07/02/16 - ROOM #[id number] DATE OF : 89 SURGEON: Alcides Conner MD TRAFFIC I MANAGER: Dr. Gallego. ANESTHESIOLOGIST: Aren Teran MD ANESTHESIA: Spinal with Duramorph. PRE-OP DIAGNOSES: Previous section and obesity. POST-OP DIAGNOSES: Previous section and obesity. OPERATIVE PROCEDURE: Low transverse section. FINDINGS: Include a viable female, Apgars 10 and 10, weight was 6 pounds 14 ounces. Normal-appearing fallopian tubes and ovaries. ESTIMATED BLOOD LOSS: 600 cc. COMPLICATIONS: None. DESCRIPTION OF PROCEDURE: The patient identified and procedure identified as a low transverse section. The patient was taken to the operating room and prepped and draped in the usual fashion in the left lateral recumbent position under spinal anesthesia. A Pfannenstiel incision was made and carried down through fat, fascia, and peritoneum. A diana retractor was placed. A transverse incision was made in the lower uterine segment and extended laterally using the bandage scissors. The above infant was delivered through the incision with ease. Cord was doubly clamped and cut and the was handed to the awaiting string winding machine operator. Cord blood was obtained. Placenta delivered spontaneously. The uterus was wiped out with a wet lap sponge. The uterine incision was then closed with 0 Polysorb in a running fashion. A second layer was used to imbricate the first layer. Good hemostasis was verified. The peritoneum was then closed using 3-0 Polysorb in a running fashion. Good hemostasis was achieved in the subrectus layers. The fascia was closed using 0 Polysorb in a running fashion. Good hemostasis was achieved in the subcu and the skin was closed with 4-0 Monocryl in a subcuticular fashion. All sponge and instrument counts were correct. The patient returned to the recovery room in stable condition. [id number]/[facility] #: [id number] [facility]
== END 2016-07-05 12:48 | disposition home or self-care (01) | DRG 540 ==
LOC: MCHOB 06:01
PROVIDERS: ADMIT Obstetrics & Gynecology; ATTEND Obstetrics & Gynecology
PROC: 10D00Z1 Extraction of Products of Conception, Low, Open Approach (ICD-10-PCS; principal; 2016-07-02 07:45)
DX: O34.211 Maternal care for low transverse scar from previous cesarean delivery (principal); Z68.41 Body mass index [BMI] 40.0-44.9, adult; O99.214 Obesity complicating childbirth; E66.01 Morbid (severe) obesity due to excess calories; O99.344 Other mental disorders complicating childbirth; F32.9 Major depressive disorder, single episode, unspecified; Z3A.39 39 weeks gestation of pregnancy; Z37.0 Single live birth
CPT/HCPCS: 36415; 85025; A9270-GY; J0694; J0780; J1885; J2405; J2590

== ENCOUNTER 2016-07-06 00:23 | Emergency (ER) | payer OTHER ==
[2016-07-06] MEDS ORDERED: Ketorolac INJ* 30 MG/ML 1 ML VIAL IV ONE (00:54)
[2016-07-06] MEDS ORDERED: NS 0.9% 1000 ML* 1,000 ML IV ONE (00:54)
[2016-07-06 01:38] LABS: Hematocrit 32 % (35-47); Hemoglobin 10.5 g/dl (12.0-16.0); Mean Corpuscular HGB Conc 33 g/dl (31-36); Mean Corpuscular Hemoglobin 27 pg (27-31); Mean Corpuscular Volume 82 fL (80-97); Mean Platelet Volume 10 um3 (7.4-10.4); Red Blood Count 3.86 10^6/ul (4.0-5.4); Red Cell Distribution Width 15 % (10.5-15); White Blood Count 10.5 10^3/ul (3.5-10.8)
[2016-07-06 01:53] LABS: Albumin 2.8 g/dL (3.2-5.2); BUN/Creatinine Ratio 17.1 (8-20); Calcium 9.2 mg/dL (8.6-10.3); EGFR African American 128.1 (>60); EGFR Non-African American 99.6 (>60); Globulin 3.4 g/dL (2-4); Potassium 3.9 mmol/L (3.5-5.0); Total Bilirubin 0.5 mg/dL (0.2-1.0); Total Protein 6.2 g/dL (6.4-8.9)
[2016-07-06 01:57] LABS: Urine Bacteria 1+ (Absent); Urine Bilirubin Negative (Negative); Urine Glucose Negative (Negative); Urine Nitrite Positive (Negative)
[2016-07-06] MEDS ORDERED: Cephalexin CAP* 500 MG PO ONE (02:12)
[2016-07-06 02:47] VITALS: BP 114/61
--- NOTE | 2016-07-06 09:35 | RAD ---
INDICATION: LEFT flank pain. History of urolithiasis. 4 days . COMPARISON: June 03, 2016 renal ultrasound and March 09, 2014 CT. TECHNIQUE: Multidetector CT images were obtained from the lung bases to the ischial tuberosities. Evaluation of the viscera is limited without IV contrast. Multiplanar reformation. REPORT: Unremarkable visualized inferior thorax. Unremarkable unenhanced liver, gallbladder, pancreas, spleen. Negative for CT abnormality of the upper GI, small bowel, or appendix. Moderately large volume of stool within the cecum and ascending colon. Negative for ascites or free air. Small fat-containing umbilical hernia without inflammatory change. Postsurgical change of recent consistent with history including edema in the subcutaneous and preperitoneal fat anterior to the urinary bladder. Associated foci of soft tissue gas. No abscess collection evident. Normal adrenal glands. No renal collecting system or ureteral stones evident. Negative for RIGHT hydronephrosis. Minimal LEFT pelvicaliectasis and equivocal inflammatory change along the course of the LEFT ureter without ureteral dilatation. Unremarkable partially distended urinary bladder. Prominent uterus corresponding with early state. Unremarkable adnexal regions. Negative for lymphadenopathy. Unremarkable dominant retroperitoneal vasculature. Physiologic distention of the IVC. Negative for retroperitoneal hematoma. Mild diastases at the pubic symphysis corresponding with state. No suspicious osseous lesions evident. IMPRESSION: 1. Postsurgical change of recent consistent with history including edema in the subcutaneous and preperitoneal fat anterior to the urinary bladder. Associated foci of soft tissue gas. No abscess collection evident. 2. Minimal LEFT pelvicaliectasis and equivocal inflammatory change along the course of the LEFT ureter without ureteral dilatation. This may reflect pyelonephritis or recent stone passage; correlate with urinalysis.
--- NOTE | 2016-07-09 10:56 | ED ---
Progress - Progress Note Progress Note: Pt's urine cx reveals e. coli - pt was d/c'd w/ keflex to which organism is sensitive. No change in medication at this time. Course/Dx - Diagnoses Provider Diagnoses: UTI (urinary tract infection)
--- NOTE | 2016-08-16 22:22 | ED ---
Tamia Kemp Matthew, scribed for JacquesLong on 07/06/16 at 0106 . Abdominal Pain/Female - HPI Summary HPI Summary: A 30 y/o female presents to the ED with left flank pain since 17:00 yesterday. The pain is rated 10/10 in severity. The patient has a Hx of kidney stones. She denies vaginal discharged, vaginal bleeding, hematuria, increased urination frequency, nausea, vomiting, fever, chest pain, and SOB. The patient had a C- Section delivery 4 days ago. - History of Current Complaint Chief Complaint: EDFlankPain Stated Complaint: LT FLANK PAIN Time Seen by Provider: 07/06/16 00:50 Hx Obtained From: Patient Hx Last Menstrual Period: 07/10/14 ?: No Onset/Duration: Sudden Onset, Lasting Hours, Still Present Timing: Constant Severity Initially: Moderate Severity Currently: Moderate Pain Intensity: 10 Pain Scale Used: 0-10 Numeric Location: Flank - LT Radiates: No Aggravating Factor(s): Nothing Alleviating Factor(s): Nothing Associated Signs and Symptoms: Negative: Fever, Chest Pain, Urinary Symptoms, Vaginal Bleeding, Vaginal Discharge, Nausea, Vomiting Allergies/Adverse Reactions: Allergies Allergy/AdvReac Type Severity Reaction Status Date / Time No Known Allergies Allergy Verified 06/23/16 01:35 PMH/Surg Hx/FS Hx/Imm Hx Endocrine/Hematology History: Denies: Hx Anticoagulant Therapy, Hx Diabetes, Hx Thyroid Disease Cardiovascular History: Denies: Hx Hypertension Respiratory History: Denies: Hx Asthma, Hx Chronic Obstructive Pulmonary Disease (COPD) GI History: Denies: Hx Ulcer History: Reports: Hx Kidney Stones - RIGHT, Other Problems/Disorders - hx of kidney stones with stent/stent removed 06/12 Psychiatric History: Reports: Hx Anxiety, Hx Depression - Surgical History Surgery Procedure, Year, and Place: tubes in ears as a child, CSECTION 01/2012 - Immunization History Date of Tetanus Vaccine: Unk Date of Influenza Vaccine: Unk Infectious Disease History: No Infectious Disease History: Denies: Hx Clostridium Difficile, Hx Hepatitis, Hx Human Immunodeficiency Virus (HIV), Hx of Known/Suspected MRSA, Hx Shingles, Hx Tuberculosis, Hx Known/ Suspected VRE, Hx Known/Suspected VRSA, History Other Infectious Disease, Traveled Outside the [place] in Last 30 Days - Family History Known Family History: Positive: Cardiac Disease, Hypertension, Diabetes - Social History Alcohol Use: None Alcohol Amount: 2-3/week Substance Use Type: Reports: None Smoking Status (MU): Never Smoked Tobacco Have You Smoked in the Last Year: No Review of Systems Constitutional: Negative Eyes: Negative ENT: Negative Cardiovascular: Negative Negative: Chest Pain Respiratory: Negative Negative: Shortness Of Breath Gastrointestinal: Other - LT Flank Pain Negative: Vomiting, Nausea Genitourinary: Negative Musculoskeletal: Negative Skin: Negative Neurological: Negative Psychological: Normal All Other Systems Reviewed And Are Negative: Yes Physical Exam Triage Information Reviewed: Yes Vital Signs On Initial Exam: Initial Vitals Temp Pulse Resp BP Pulse Ox 98 F 84 18 99/53 99 07/06/16 00:31 07/06/16 00:31 07/06/16 00:31 07/06/16 00:31 07/06/16 00:31 Vital Signs Reviewed: Yes Appearance: Positive: Well-Appearing, Pain Distress - mild Skin: Positive: Warm, Skin Color Reflects Adequate Perfusion, Dry Head/Face: Positive: Normal Head/Face Inspection Eyes: Positive: EOMI, NAOMY ENT: Positive: Normal ENT inspection Neck: Positive: Supple, Nontender Respiratory/Lung Sounds: Positive: Clear to Auscultation, Breath Sounds Present Cardiovascular: Positive: RRR, Pulses are Symmetrical in both Upper and Lower Extremities Abdomen Description: Positive: Soft, Other: - mild tenderness over the left flank Bowel Sounds: Positive: Present Musculoskeletal: Positive: Other - Healing scar in the pelvic region Neurological: Positive: Normal, Sensory/Motor Intact, Alert, Oriented to Person Place, Time Psychiatric: Positive: Affect/Mood Appropriate Diagnostics - Vital Signs Vital Signs Temp Pulse Resp BP Pulse Ox 07/06/16 00:31 98 F 84 18 99/53 99 - Laboratory Result Diagrams: 07/06/16 01:25 07/06/16 01:25 Lab Statement: Any lab studies that have been ordered have been reviewed, and results considered in the medical decision making process. - CT CT A/P CT Interpretation: No Acute Changes - No gallstones Mild left hydronephrosis and left hydroureter without evidence of an obstructing distal ureteral stone. This is likely due to the enlarged uterus. Fluid within the endocervical canal. There is subcutaneous edema and subcutaneous emphysema within the lower anterior abdominal wall and pelvic wall as the patient is status post recent . No evidence of intestinal obstruction, perforation , free fluid, colitis, pancreatitis, acute diverticular disease, or an intra- abdominal or pelvic abscess. Large amount of stool within the cecum and ascending colon. The appendix is not visualized; however, there is no evidence of a right lower quadrant inflammatory process to suggest acute appendicitis Small fat-contain umbilic hernia Pubic diastasis. CT Interpretation Completed By: Radiologist Abdominal Pain Fem Course/Dx - Course Course Of Treatment: A 30 y/o female presents to the ED with left flank pain since 17:00 yesterday. Labs were reviewed. CT A/P shows no acute findings. Urinalysis shows UTI. The patient will be discharged home on Cephalexin and follow-up with her PCP. - Diagnoses Provider Diagnoses: UTI (urinary tract infection) Discharge - Discharge Plan Condition: Stable Disposition: HOME Prescriptions: Cephalexin [Keflex] 750 mg PO BID #14 cap Patient Education Materials: Cephalexin (By mouth), Urinary Tract Infection in Women (ED) Referrals: Godwin Cheney MD [Primary Care Provider] - 3 Days Additional Instructions: Please follow-up with your primary care physician in 3 days. The documentation as recorded by the Tamia hawk Matthew accurately reflects the service I personally performed and the decisions made by , Long Hanna.
== END 2016-07-06 02:46 | disposition home or self-care (01) ==
LOC: ED 00:23
DX: N39.0 Urinary tract infection, site not specified (principal); B96.20 Unspecified Escherichia coli [E. coli] as the cause of diseases classified elsewhere
CPT/HCPCS: 36415; 74176; 80053; 81003; 81015; 83690; 85025; 87077; 87086; 87186; 96360; 96374; 99283; A9270-GY; J1885

== ENCOUNTER 2016-08-24 13:03 | Emergency (ER) | payer OTHER ==
[2016-08-24] MEDS ORDERED: Acetaminophen TAB* 325 MG PO ONE (14:51)
[2016-08-24] MEDS ORDERED: Ketorolac INJ* 30 MG/ML 1 ML VIAL IM ONE (14:52)
[2016-08-24] MEDS ORDERED: Morphine INJ* 4 MG/ML 1 ML SYRINGE IV ONE (14:52)
[2016-08-24] MEDS ORDERED: Ondansetron INJ* 2 MG/ML VIAL IV ONE (14:52)
--- NOTE | 2016-08-24 15:30 | RAD ---
INDICATION: LEFT flank pain, fever. Weakness and dizziness. History of nephrolithiasis. COMPARISON: July 06, 2016 TECHNIQUE: Multidetector CT images were obtained from the lung bases to the ischial tuberosities. Evaluation of the viscera is limited without IV contrast. Multiplanar reformation. REPORT: Unremarkable visualized inferior thorax. The liver, gallbladder, pancreas, and spleen are unremarkable. No CT abnormality of the upper GI, small bowel, appendix visualized on axial images 127-133, or colon. Negative for perienteric inflammatory change, ascites, free air. Small fat-containing umbilical hernia without inflammatory change. Normal adrenal glands. Unremarkable RIGHT adrenal gland. 0.9 x 1.1 cm nodule at the caudal aspect of the LEFT adrenal gland is grossly unchanged compared with a CT from June 01, 2013 without concern. Unremarkable RIGHT kidney and ureter. Negative for urolithiasis or hydronephrosis. No focal renal lesions or significant perinephric inflammatory change. Largely decompressed urinary bladder without suspicious finding. Multiple pelvic phleboliths. Unremarkable neutral position uterus and adnexal regions. Negative for lymphadenopathy. Unremarkable dominant retroperitoneal vasculature. Negative for suspicious osseous lesions. IMPRESSION: 1. Negative for urolithiasis or obstructive uropathy. 2. Normal appendix documented. 3. No acute abdominal pelvic pathologic process evident.
[2016-08-24 15:51] LABS: Hematocrit 39 % (35-47); Hemoglobin 12.4 g/dl (12.0-16.0); Mean Corpuscular HGB Conc 32 g/dl (31-36); Mean Corpuscular Hemoglobin 26 pg (27-31); Mean Corpuscular Volume 81 fL (80-97); Mean Platelet Volume 10 um3 (7.4-10.4); Red Blood Count 4.75 10^6/ul (4.0-5.4); Red Cell Distribution Width 16 % (10.5-15); White Blood Count 17.2 10^3/ul (3.5-10.8)
[2016-08-24] MEDS: NS 0.9% 1000 ML* 3,000 ML IV ONE (15:54)
[2016-08-24 15:56] VITALS: BP 126/65
[2016-08-24 15:56] LABS: Urine Bacteria Absent (Absent); Urine Bilirubin Negative (Negative); Urine Glucose Negative (Negative); Urine Nitrite Negative (Negative)
[2016-08-24 16:07] LABS: ALT 15 U/L (7-52); AST 15 U/L (13-39); Alkaline Phosphatase 66 U/L (34-104); Anion Gap 10 mmol/L (2-11); BUN/Creatinine Ratio 13.1 (8-20); Blood Urea Nitrogen 11 mg/dL (6-24); C Reactive Protein 97.65 mg/L (< 5.00); CO2 Carbon Dioxide 20 mmol/L (22-32); Calcium 9.3 mg/dL (8.6-10.3); Chloride 103 mmol/L (101-111); Creatine Kinase 51 U/L (10-223); EGFR African American 103.8 (>60); EGFR Non-African American 80.7 (>60); Globulin 3.5 g/dL (2-4); Glucose 97 mg/dL (70-100); Lipase 15 U/L (11.0-82.0); Potassium 3.8 mmol/L (3.5-5.0); Sodium 133 mmol/L (133-145); Total Protein 7.5 g/dL (6.4-8.9)
[2016-08-24] MEDS ORDERED: Ciprofloxacin TAB* 500 MG PO ONE (17:18)
--- NOTE | 2016-08-24 18:01 | ED ---
Janet Kemp SooYoung, scribed for Oscar Anne MD on 08/24/16 at 1453 . Back Pain - HPI Summary HPI Summary: A 30 y/o F presents to ED with c/o non-radiating L flank pain onset last night. Associated sx: fever, n/v. Denies hematuria, diarrhea. Aggravating factors include deep breaths, urinating, position. PMHx: kidney stones, kidneys infections (R-side 2011, L-side 2016). She notes has healed well. - History of Current Complaint Chief Complaint: EDFlankPain Stated Complaint: FLANK PAIN, FEVER Time Seen by Provider: 08/24/16 14:35 Hx Obtained From: Patient Hx Last Menstrual Period: 07/10/14 Onset/Duration: Lasting Hours - last night, Still Present Timing: Constant Back Pain Location: Is Discrete @ - L flank Severity Initially: Moderate Severity Currently: Severe Pain Intensity: 9 Pain Scale Used: 0-10 Numeric Aggravating Symptom(s): Movement Associated Signs And Symptoms: Positive: Fever, Other - pos: n/v - Allergies/Home Medications Allergies/Adverse Reactions: Allergies Allergy/AdvReac Type Severity Reaction Status Date / Time No Known Allergies Allergy Verified 07/06/16 02:48 PMH/Surg Hx/FS Hx/Imm Hx Previously Healthy: No Endocrine/Hematology History: Denies: Hx Anticoagulant Therapy, Hx Diabetes, Hx Thyroid Disease Cardiovascular History: Denies: Hx Hypertension Respiratory History: Denies: Hx Asthma, Hx Chronic Obstructive Pulmonary Disease (COPD) GI History: Denies: Hx Ulcer History: Reports: Hx Kidney Stones - RIGHT, Other Problems/Disorders - hx of kidney stones with stent/stent removed 06/12 Psychiatric History: Reports: Hx Anxiety, Hx Depression - Surgical History Surgery Procedure, Year, and Place: tubes in ears as a child, CSECTION 01/2012/ RENAL STENT PALCEMENT/REMOVAL - Immunization History Date of Tetanus Vaccine: Unk Date of Influenza Vaccine: Unk Infectious Disease History: Denies: Hx Clostridium Difficile, Hx Hepatitis, Hx Human Immunodeficiency Virus (HIV), Hx of Known/Suspected MRSA, Hx Shingles, Hx Tuberculosis, Hx Known/ Suspected VRE, Hx Known/Suspected VRSA, History Other Infectious Disease, Traveled Outside the [place] in Last 30 Days - Family History Known Family History: Positive: Cardiac Disease, Hypertension, Diabetes - Social History Occupation: Unemployed - OTHER Lives: With Family Alcohol Use: None Alcohol Amount: 2-3/week Hx Substance Use: No Substance Use Type: Reports: None Hx Tobacco Use: No Smoking Status (MU): Never Smoked Tobacco Have You Smoked in the Last Year: No Review of Systems Positive: Fever Positive: Vomiting, Nausea, Other - pos: L FLANK PAIN All Other Systems Reviewed And Are Negative: Yes Physical Exam - Summary Physical Exam Summary: The patient is IN MILD PAIN DISTRESS, OBESE. The skin is dry and skin color reflects adequate perfusion. SKIN IS WARM TO TOUCH. HEENT: The head is normocephalic and atraumatic. The pupils are equal and reactive. The conjunctivae are clear and without drainage. Nares are patent and without drainage. Mouth reveals moist mucous membranes and the throat is without erythema and exudate. The external ears are intact. Neck is supple with full range of motion and non-tender. There are no carotid bruits. There is no neck vein distension. Respiratory: Chest is non-tender. Lungs are clear to auscultation and breath sounds are symmetrical and equal. Cardiovascular: TACHYCARDIC. There is no murmur or rub auscultated. There is no peripheral edema and pulses are symmetrical and equal. Abdomen: The abdomen is SOFT, OBESE. There are normal bowel sounds heard in all four quadrants and there is no organomegaly palpated. L CVA TENDERNESS. Musculoskeletal: There is no back pain noted. Extremities are non-tender with full range of motion. There is good capillary refill. There is no peripheral edema or calf tenderness elicited. Neurological: Patient is alert and oriented to person, place and time. The patient has symmetrical motor strength in all four extremities. Cranial nerves are grossly intact. Deep tendon reflexes are symmetrical and equal in all four extremities. Psychiatric: The patient has an appropriate affect and does not exhibit any anxiety or depression. Triage Information Reviewed: Yes Vital Signs On Initial Exam: Initial Vitals Temp Pulse Resp BP Pulse Ox 101.5 F 113 20 137/59 99 08/24/16 13:26 08/24/16 13:26 08/24/16 13:26 08/24/16 13:26 08/24/16 13:26 Vital Signs Reviewed: Yes Diagnostics - Vital Signs Vital Signs Temp Pulse Resp BP Pulse Ox 08/24/16 13:26 101.5 F 113 20 137/59 99 - Laboratory Lab Results: Lab Results 08/24/16 08/24/16 08/24/16 Range/Units 15:25 15:25 15:25 WBC 17.2 H (3.5-10.8) 10^3/ul RBC 4.75 (4.0-5.4) 10^6/ul Hgb 12.4 (12.0-16.0) g/dl Hct 39 (35-47) % MCV 81 (80-97) fL MCH 26 L (27-31) pg MCHC 32 (31-36) g/dl RDW 16 H (10.5-15) % Plt Count 264 (150-450) 10^3/ul MPV 10 (7.4-10.4) um3 Neut % (Auto) 80.9 (38-83) % Lymph % (Auto) 11.5 L (25-47) % [place] % (Auto) 7.1 (1-9) % Eos % (Auto) 0.2 (0-6) % Baso % (Auto) 0.3 (0-2) % Absolute Neuts (auto) 13.9 H (1.5-7.7) 10^3/ul Absolute Lymphs (auto) 2.0 (1.0-4.8) 10^3/ul Absolute Monos (auto) 1.2 H (0-0.8) 10^3/ul Absolute Eos (auto) 0 (0-0.6) 10^3/ul Absolute Basos (auto) 0.1 (0-0.2) 10^3/ul Absolute Nucleated RBC 0 10^3/ul Nucleated RBC % 0 Sodium 133 (133-145) mmol/L Potassium 3.8 (3.5-5.0) mmol/L Chloride 103 (101-111) mmol/L Carbon Dioxide 20 L (22-32) mmol/L Anion Gap 10 (2-11) mmol/L BUN 11 (6-24) mg/dL Creatinine 0.84 (0.51-0.95) mg/dL Est GFR ( Amer) 103.8 (>60) Est GFR (Non-Af Amer) 80.7 (>60) BUN/Creatinine Ratio 13.1 (8-20) Glucose 97 (70-100) mg/dL Lactic Acid (0.5-2.0) mmol/L Calcium 9.3 (8.6-10.3) mg/dL Total Bilirubin 1.00 (0.2-1.0) mg/dL AST 15 (13-39) U/L ALT 15 (7-52) U/L Alkaline Phosphatase 66 (34-104) U/L Total Creatine Kinase 51 (10-223) U/L C-Reactive Protein 97.65 H (< 5.00) mg/L Total Protein 7.5 (6.4-8.9) g/dL Albumin 4.0 (3.2-5.2) g/dL Globulin 3.5 (2-4) g/dL Albumin/Globulin Ratio 1.1 (1-3) Lipase 15 (11.0-82.0) U/L Beta HCG, Quant < 0.60 mIU/mL Urine Color Yellow Urine Appearance Clear Urine pH 6.0 (5-9) Ur Specific [place] 1.014 (1.010-1.030) Urine Protein Negative (Negative) Urine Ketones Negative (Negative) Urine Blood Negative (Negative) Urine Nitrate Negative (Negative) Urine Bilirubin Negative (Negative) Urine Urobilinogen Negative (Negative) Ur Leukocyte Esterase Trace H (Negative) Urine WBC (Auto) 2+(11-20/hpf) H (Absent) Urine RBC (Auto) Absent (Absent) Ur Squamous Epith Cells Present H (Absent) Urine Bacteria Absent (Absent) Urine Glucose Negative (Negative) 08/24/16 Range/Units 15:25 WBC (3.5-10.8) 10^3/ul RBC (4.0-5.4) 10^6/ul Hgb (12.0-16.0) g/dl Hct (35-47) % MCV (80-97) fL MCH (27-31) pg MCHC (31-36) g/dl RDW (10.5-15) % Plt Count (150-450) 10^3/ul MPV (7.4-10.4) um3 Neut % (Auto) (38-83) % Lymph % (Auto) (25-47) % [place] % (Auto) (1-9) % Eos % (Auto) (0-6) % Baso % (Auto) (0-2) % Absolute Neuts (auto) (1.5-7.7) 10^3/ul Absolute Lymphs (auto) (1.0-4.8) 10^3/ul Absolute Monos (auto) (0-0.8) 10^3/ul Absolute Eos (auto) (0-0.6) 10^3/ul Absolute Basos (auto) (0-0.2) 10^3/ul Absolute Nucleated RBC 10^3/ul Nucleated RBC % Sodium (133-145) mmol/L Potassium (3.5-5.0) mmol/L Chloride (101-111) mmol/L Carbon Dioxide (22-32) mmol/L Anion Gap (2-11) mmol/L BUN (6-24) mg/dL Creatinine (0.51-0.95) mg/dL Est GFR ( Amer) (>60) Est GFR (Non-Af Amer) (>60) BUN/Creatinine Ratio (8-20) Glucose (70-100) mg/dL Lactic Acid 0.4 L (0.5-2.0) mmol/L Calcium (8.6-10.3) mg/dL Total Bilirubin (0.2-1.0) mg/dL AST (13-39) U/L ALT (7-52) U/L Alkaline Phosphatase (34-104) U/L Total Creatine Kinase (10-223) U/L C-Reactive Protein (< 5.00) mg/L Total Protein (6.4-8.9) g/dL Albumin (3.2-5.2) g/dL Globulin (2-4) g/dL Albumin/Globulin Ratio (1-3) Lipase (11.0-82.0) U/L Beta HCG, Quant mIU/mL Urine Color Urine Appearance Urine pH (5-9) Ur Specific [place] (1.010-1.030) Urine Protein (Negative) Urine Ketones (Negative) Urine Blood (Negative) Urine Nitrate (Negative) Urine Bilirubin (Negative) Urine Urobilinogen (Negative) Ur Leukocyte Esterase (Negative) Urine WBC (Auto) (Absent) Urine RBC (Auto) (Absent) Ur Squamous Epith Cells (Absent) Urine Bacteria (Absent) Urine Glucose (Negative) Result Diagrams: 08/24/16 15:25 08/24/16 15:25 Lab Statement: Any lab studies that have been ordered have been reviewed, and results considered in the medical decision making process. - CT A/P CT CT Interpretation: No Acute Changes - IMPRESSION: 1. Negative for urolithiasis or obstructive uropathy. 2. Normal appendix documented. 3. No acute abdominal pelvic pathologic process evident. CT Interpretation Completed By: Radiologist Re-Evaluation - Re-Evaluation 1 Re-Evaluation Time: 17:16 Change: Improved Comment: Discussing results with pt. Back Pain Course/Dx - Course Course Of Treatment: Pt is a 30 y/o F presenting with non-radiating L flank pain onset last night. Associated sx: fever, n/v. Denies hematuria, diarrhea. Aggravating factors include deep breaths, urinating, position. PMHx: kidney stones, kidneys infections (R-side 2011, L-side 2016). Pt given fluids, toradol , tylenol, morphine and zofran in ED. A/P CT is negative for acute findings. UA shows 2+ WBCs, trace leukocytes and epithelia cells present. Pt does not breastfeed. Will give her dose of Cipro in ED, and rx. D/C with Zofran and Hydrocodone as well. Pt voiced understanding. - Diagnoses Differential Diagnosis/HQI/PQRI: Positive: Renal Colic, Other - pyelonephritis, fever, infected renal calculus Provider Diagnoses: pyelonephritis left Discharge - Discharge Plan Condition: Stable Disposition: HOME Prescriptions: Ciprofloxacin TAB* [Cipro 500 MG TAB*] 500 mg PO BID #20 tab HYDROcodone/ACETAMIN 5-325 MG* [[place] 5-325 TAB*] 1 tab PO Q6H PRN #20 tab MDD 4 PRN Reason: pain Ondansetron ODT TAB* [Zofran 4 MG Odt TAB*] 4 mg PO Q8H PRN #20 tab.odt PRN Reason: nausea Patient Education Materials: Kidney Infection (ED), Ciprofloxacin (By mouth), Ondansetron (By mouth), Hydrocodone/Acetaminophen (By mouth) Referrals: Godwin Cheney MD [Primary Care Provider] - Additional Instructions: Please return to ED if you experience new or worsening symptoms. The documentation as recorded by the Janet hawk SooYoung accurately reflects the service I personally performed and the decisions made by me, Oscar Anne MD.
--- NOTE | 2016-08-26 09:28 | PN ---
Progress Note - Progress Note Note: Gram Negative Bacilli grew on UC preliminary. Patient already placed on Cipro. Will await sensitivities. Nothing further at this time. Myra Vasquez PA-C
--- NOTE | 2016-08-27 08:58 | PN ---
Progress Note - Progress Note Note: Patient placed on Cipro. Sensitivities to Cipro. Nothing further to do. Myra Vasquez PA-C
--- NOTE | 2016-08-29 09:01 | PN ---
Progress Note - Progress Note Note: Patient placed on Cipro. Sensitivity to Cipro shown on culture results. No further changes needed at this time.
== END 2016-08-24 17:32 | disposition home or self-care (01) ==
LOC: ED 13:03
DX: N12 Tubulo-interstitial nephritis, not specified as acute or chronic (principal); R50.9 Fever, unspecified; R11.2 Nausea with vomiting, unspecified
CPT/HCPCS: 36415; 74176; 80053; 81003; 81015; 82550; 83605; 83690; 84702; 85025; 86140; 87040; 87077; 87086; 87186; 99283; A9270-GY; J1885; J2270; J2405

== ENCOUNTER 2016-11-19 19:25 | Emergency (ER) | payer OTHER ==
[2016-11-19] MEDS ORDERED: Ondansetron INJ* 2 MG/ML VIAL IV ONE (23:16)
[2016-11-19] MEDS ORDERED: Morphine INJ* 4 MG/ML 1 ML SYRINGE IV ONE (23:16)
[2016-11-19] MEDS ORDERED: NS 0.9% 1000 ML* 1,000 ML IV ONE (23:22)
[2016-11-20 00:28] LABS: Urine Bacteria Absent (Absent); Urine Bilirubin Negative (Negative); Urine Glucose Negative (Negative); Urine Nitrite Negative (Negative)
[2016-11-20 00:47] LABS: Hematocrit 41 % (35-47); Hemoglobin 13.4 g/dl (12.0-16.0); Mean Corpuscular HGB Conc 32 g/dl (31-36); Mean Corpuscular Hemoglobin 28 pg (27-31); Mean Corpuscular Volume 87 fL (80-97); Mean Platelet Volume 9 um3 (7.4-10.4); Red Blood Count 4.77 10^6/ul (4.0-5.4); Red Cell Distribution Width 14 % (10.5-15)
[2016-11-20 01:15] LABS: ALT 13 U/L (7-52); AST 13 U/L (13-39); Alkaline Phosphatase 57 U/L (34-104); Anion Gap 6 mmol/L (2-11); BUN/Creatinine Ratio 20.3 (8-20); Blood Urea Nitrogen 13 mg/dL (6-24); CO2 Carbon Dioxide 24 mmol/L (22-32); Calcium 9.1 mg/dL (8.6-10.3); Chloride 104 mmol/L (101-111); EGFR African American 141.1 (>60); EGFR Non-African American 109.7 (>60); Globulin 3.5 g/dL (2-4); Glucose 92 mg/dL (70-100); Potassium 3.6 mmol/L (3.5-5.0); Sodium 134 mmol/L (133-145); Total Protein 7.5 g/dL (6.4-8.9)
[2016-11-20 02:40] VITALS: BP 121/72
--- NOTE | 2016-11-20 03:30 | ED ---
Lucio Kemp Rebecca, scribed for Oscar Anne MD on 11/19/16 at 2315 . Abdominal Pain/Female - HPI Summary HPI Summary: Pt is a 31 y/o F who presents to ED c/o suprapubic pain with radiation to the back. Pain began 4 days ago and has been constant since onset. Reports pain is in her pelvis "between my hips." Believes it is in the ovaries/uterus. Per triage note, pain is currently severe, ranked 10/10. Sx aggravated and alleviated by nothing, unchanged by Tylenol and Ibuprofen. Denies vaginal bleeding, vaginal discharge, difficulty urinating, fever, chills, N/D. No recent trauma. LNMP 3 in September, none in October. Denies chance of . A0. 2 C-Sections, the last one on July 02, 2016. NO PMHx ovarian cyst. FHx ovarian cyst. - History of Current Complaint Chief Complaint: EDAbdPain Stated Complaint: ABD PAIN X3DAYS Time Seen by Provider: 11/19/16 23:03 Hx Obtained From: Patient Hx Last Menstrual Period: 07/10/14 Onset/Duration: Lasting Days - 4 days, Still Present Timing: Constant Severity Currently: Severe Pain Intensity: 10 Pain Scale Used: 0-10 Numeric Location: Other - Pelvic Radiates: No Aggravating Factor(s): Nothing Alleviating Factor(s): Nothing Associated Signs and Symptoms: Positive: Negative Allergies/Adverse Reactions: Allergies Allergy/AdvReac Type Severity Reaction Status Date / Time No Known Allergies Allergy Verified 07/06/16 02:48 PMH/Surg Hx/FS Hx/Imm Hx Endocrine/Hematology History: Denies: Hx Anticoagulant Therapy, Hx Diabetes, Hx Thyroid Disease Cardiovascular History: Denies: Hx Hypertension Respiratory History: Denies: Hx Asthma, Hx Chronic Obstructive Pulmonary Disease (COPD) GI History: Denies: Hx Ulcer History: Reports: Hx Kidney Stones - RIGHT, Other Problems/Disorders - hx of kidney stones with stent/stent removed 06/12 Psychiatric History: Reports: Hx Anxiety, Hx Depression - Surgical History Surgery Procedure, Year, and Place: tubes in ears as a child, CSECTION 01/2012/ RENAL STENT PALCEMENT/REMOVAL - Immunization History Date of Tetanus Vaccine: Unk Date of Influenza Vaccine: Unk Infectious Disease History: No Infectious Disease History: Denies: Hx Clostridium Difficile, Hx Hepatitis, Hx Human Immunodeficiency Virus (HIV), Hx of Known/Suspected MRSA, Hx Shingles, Hx Tuberculosis, Hx Known/ Suspected VRE, Hx Known/Suspected VRSA, History Other Infectious Disease, Traveled Outside the [place] in Last 30 Days - Family History Known Family History: Positive: Cardiac Disease, Hypertension, Diabetes, Other - Ovarian cysts - Social History Alcohol Use: Occasionally Alcohol Amount: 2-3/week Hx Substance Use: No Substance Use Type: Reports: None Hx Tobacco Use: No Smoking Status (MU): Never Smoked Tobacco Have You Smoked in the Last Year: No Review of Systems Negative: Fever, Chills Negative: Diarrhea, Nausea Positive: other - Denies vaginal bleeding and difficulty urinating. Negative: discharge All Other Systems Reviewed And Are Negative: Yes Physical Exam - Summary Physical Exam Summary: The patient is well-nourished in no acute distress and in no acute pain. The skin is warm and dry and skin color reflects adequate perfusion. HEENT: The head is normocephalic and atraumatic. The pupils are equal and reactive. The conjunctivae are clear and without drainage. Nares are patent and without drainage. Mouth reveals moist mucous membranes and the throat is without erythema and exudate. The external ears are intact. The ear canals are patent and without drainage. The tympanic membranes are intact. Neck is supple with full range of motion and non-tender. There are no carotid bruits. There is no neck vein distension. Respiratory: Chest is non-tender. Lungs are clear to auscultation and breath sounds are symmetrical and equal. Cardiovascular: Hear is regular rate and rhythm. There is no murmur or rub auscultated. There is no peripheral edema and pulses are symmetrical and equal. Abdomen: The abdomen is soft. Some pain in her lower abdomen over her ovaries. There are normal bowel sounds heard in all four quadrants and there is no organomegaly palpated. Musculoskeletal: Extremities are non-tender with full range of motion. There is good capillary refill. There is no peripheral edema or calf tenderness elicited. No CVA tenderness. Some pain in the lower back. No reproducible pain over her hips or pelvis. Neurological: Patient is alert and oriented to person, place and time. The patient has symmetrical motor strength in all four extremities. Cranial nerves are grossly intact. Deep tendon reflexes are symmetrical and equal in all four extremities. Psychiatric: The patient has an appropriate affect and does not exhibit any anxiety or depression. Pelvic: Yellow-carmina discharge present. GC/Chlamydia and Trichomonas cultures obtained and affirmed. No tenderness of the cervix and no tenderness of the adnexal areas. Triage Information Reviewed: Yes Vital Signs On Initial Exam: Initial Vitals Temp Pulse Resp BP Pulse Ox 97.8 F 90 20 113/39 99 11/19/16 19:31 11/19/16 19:31 11/19/16 19:31 11/19/16 19:31 11/19/16 19:31 Vital Signs Reviewed: Yes - [place] Coma Scale Coma Scale Total: 15 Diagnostics - Vital Signs Vital Signs Temp Pulse Resp BP Pulse Ox 11/19/16 22:30 72 105/66 100 11/19/16 22:27 75 100 11/19/16 22:25 97.6 F 69 16 105/66 100 11/19/16 22:23 120/55 11/19/16 20:58 98 F 74 18 107/69 100 11/19/16 19:31 97.8 F 90 20 113/39 99 - Laboratory Lab Results: Lab Results 11/19/16 11/20/16 11/20/16 Range/Units 23:50 00:40 00:40 WBC 11.0 H (3.5-10.8) 10^3/ul RBC 4.77 (4.0-5.4) 10^6/ul Hgb 13.4 (12.0-16.0) g/dl Hct 41 (35-47) % MCV 87 (80-97) fL MCH 28 (27-31) pg MCHC 32 (31-36) g/dl RDW 14 (10.5-15) % Plt Count 262 (150-450) 10^3/ul MPV 9 (7.4-10.4) um3 Neut % (Auto) 46.0 (38-83) % Lymph % (Auto) 43.1 (25-47) % [place] % (Auto) 7.7 (1-9) % Eos % (Auto) 2.1 (0-6) % Baso % (Auto) 1.1 (0-2) % Absolute Neuts (auto) 5.1 (1.5-7.7) 10^3/ul Absolute Lymphs (auto) 4.7 (1.0-4.8) 10^3/ul Absolute Monos (auto) 0.8 (0-0.8) 10^3/ul Absolute Eos (auto) 0.2 (0-0.6) 10^3/ul Absolute Basos (auto) 0.1 (0-0.2) 10^3/ul Absolute Nucleated RBC 0.03 10^3/ul Nucleated RBC % 0.2 Sodium 134 (133-145) mmol/L Potassium 3.6 (3.5-5.0) mmol/L Chloride 104 (101-111) mmol/L Carbon Dioxide 24 (22-32) mmol/L Anion Gap 6 (2-11) mmol/L BUN 13 (6-24) mg/dL Creatinine 0.64 (0.51-0.95) mg/dL Est GFR ( Amer) 141.1 (>60) Est GFR (Non-Af Amer) 109.7 (>60) BUN/Creatinine Ratio 20.3 H (8-20) Glucose 92 (70-100) mg/dL Lactic Acid (0.5-2.0) mmol/L Calcium 9.1 (8.6-10.3) mg/dL Total Bilirubin 0.40 (0.2-1.0) mg/dL AST 13 (13-39) U/L ALT 13 (7-52) U/L Alkaline Phosphatase 57 (34-104) U/L Total Protein 7.5 (6.4-8.9) g/dL Albumin 4.0 (3.2-5.2) g/dL Globulin 3.5 (2-4) g/dL Albumin/Globulin Ratio 1.1 (1-3) Beta HCG, Quant < 0.60 mIU/mL Urine Color Yellow Urine Appearance Clear Urine pH 6.0 (5-9) Ur Specific [place] 1.025 (1.010-1.030) Urine Protein Negative (Negative) Urine Ketones Negative (Negative) Urine Blood 1+ H (Negative) Urine Nitrate Negative (Negative) Urine Bilirubin Negative (Negative) Urine Urobilinogen Negative (Negative) Ur Leukocyte Esterase Negative (Negative) Urine WBC (Auto) Trace(0-5/hpf) (Absent) Urine RBC (Auto) Trace(0-2/hpf) (Absent) Urine Bacteria Absent (Absent) Urine Glucose Negative (Negative) 11/20/16 Range/Units 00:40 WBC (3.5-10.8) 10^3/ul RBC (4.0-5.4) 10^6/ul Hgb (12.0-16.0) g/dl Hct (35-47) % MCV (80-97) fL MCH (27-31) pg MCHC (31-36) g/dl RDW (10.5-15) % Plt Count (150-450) 10^3/ul MPV (7.4-10.4) um3 Neut % (Auto) (38-83) % Lymph % (Auto) (25-47) % [place] % (Auto) (1-9) % Eos % (Auto) (0-6) % Baso % (Auto) (0-2) % Absolute Neuts (auto) (1.5-7.7) 10^3/ul Absolute Lymphs (auto) (1.0-4.8) 10^3/ul Absolute Monos (auto) (0-0.8) 10^3/ul Absolute Eos (auto) (0-0.6) 10^3/ul Absolute Basos (auto) (0-0.2) 10^3/ul Absolute Nucleated RBC 10^3/ul Nucleated RBC % Sodium (133-145) mmol/L Potassium (3.5-5.0) mmol/L Chloride (101-111) mmol/L Carbon Dioxide (22-32) mmol/L Anion Gap (2-11) mmol/L BUN (6-24) mg/dL Creatinine (0.51-0.95) mg/dL Est GFR ( Amer) (>60) Est GFR (Non-Af Amer) (>60) BUN/Creatinine Ratio (8-20) Glucose (70-100) mg/dL Lactic Acid 1.5 (0.5-2.0) mmol/L Calcium (8.6-10.3) mg/dL Total Bilirubin (0.2-1.0) mg/dL AST (13-39) U/L ALT (7-52) U/L Alkaline Phosphatase (34-104) U/L Total Protein (6.4-8.9) g/dL Albumin (3.2-5.2) g/dL Globulin (2-4) g/dL Albumin/Globulin Ratio (1-3) Beta HCG, Quant mIU/mL Urine Color Urine Appearance Urine pH (5-9) Ur Specific [place] (1.010-1.030) Urine Protein (Negative) Urine Ketones (Negative) Urine Blood (Negative) Urine Nitrate (Negative) Urine Bilirubin (Negative) Urine Urobilinogen (Negative) Ur Leukocyte Esterase (Negative) Urine WBC (Auto) (Absent) Urine RBC (Auto) (Absent) Urine Bacteria (Absent) Urine Glucose (Negative) Result Diagrams: 11/20/16 00:40 11/20/16 00:40 Lab Statement: Any lab studies that have been ordered have been reviewed, and results considered in the medical decision making process. - Ultrasound No standard instances Ultrasound Interpretation: No Acute Changes - Transvaginal US: Normal appearance of uterus, endometrium and both ovaries have normal vascular flow seen bilaterally. Ultrasound Interpretation Completed By: Radiologist Re-Evaluation - Re-Evaluation First Eval Re-Evaluation Time: 01:49 Comment: Discussed US and UA results with the pt. She reports concern of STDs due to vaginal discharge, given the circumstances that her boyfriend is cheating on her with a girl who is and due in a week. Second Eval Re-Evaluation Time: 02:08 Change: Unchanged Comment: Pelvic exam performed which reveals: Yellow-carmina discharge present. GC and Chlamydia and Trichomonas cultures obtained and affirmed. No tenderness of the cervix and no tenderness of the adnexal areas. Abdominal Pain Fem Course/Dx - Course Course Of Treatment: Pt is a 31 y/o F who presents to ED c/o constant suprapubic pain with radiation to the back for 4 days. Per triage note, pain is currently severe, ranked 10/10. Sx unchanged by Tylenol and Ibuprofen. Denies vaginal bleeding, vaginal discharge, difficulty urinating, fever, chills, N/D. No recent trauma. LNMP 3 in September, none in October. Denies chance of . A0. 2 C-Sections, the last one on July 02, 2016. No PMHx ovarian cyst. FHx ovarian cyst. WBC of 11.0. US and UA reveal no acute findings. In the ED course, she received morphine, zofran and fluids. Pelvic exam performed during which GC/Chlamydia and Trichomonas cultures were collected and affirmed. She will be D/C to home with Dx of pelvic pain with pending cultures, an Rx for Percocet and and a follow up with her PCP. She understands and agrees. - Diagnoses Differential Diagnosis: Positive: Pelvic Inflammatory Disease, , Urinary Tract Infection, Other - ovarian torsion, ovarian cyst Provider Diagnoses: Pelvic pain Discharge - Discharge Plan Condition: Stable Disposition: HOME Prescriptions: oxyCODONE/Acetamin 5/325 MG* [Percocet 5/325 TAB*] 1 tab PO Q6H PRN #20 tab MDD 4 PRN Reason: pain Patient Education Materials: Pelvic Pain in Women (ED) Referrals: Godwin Cheney MD [Primary Care Provider] - 3 Days The documentation as recorded by the Lucio hawk Rebecca accurately reflects the service I personally performed and the decisions made by , Oscar Anne MD.
--- NOTE | 2016-11-20 07:39 | RAD ---
HISTORY: Pelvic pain COMPARISONS: March 09, 2014 TECHNIQUE: Multiple transverse and longitudinal ultrasound images were obtained of the pelvis using grayscale, color Doppler, and spectral Doppler imaging using the endovaginal transducer. FINDINGS: UTERUS: The uterus measures 7.2 x 4.2 x 5 cm. The uterus is normal in shape, size, contour, and echotexture. Cervical nabothian cysts are noted. ENDOMETRIUM: The endometrial stripe is smooth. The endometrium measures 1 cm in thickness. CUL-DE-SAC: There is no free fluid within the cul-de-sac. RIGHT OVARY: The right ovary measures 4 x 2.2 x 2.3 cm. Normal arterial and venous waveforms are identifiable within the ovary on spectral Doppler imaging. LEFT OVARY: The left ovary measures 3.5 x 2.1 x 2.1 cm. Normal arterial and venous waveforms are identifiable within the ovary on spectral Doppler imaging. BLADDER: The bladder is not well visualized. IMPRESSION: UNREMARKABLE ULTRASOUND OF THE PELVIS. NO SONOGRAPHIC FEATURES OF TORSION. PLEASE NOTE THAT PARTIAL OR INTERMITTENT TORSION MAY BE SONOGRAPHICALLY NORMAL.
--- NOTE | 2016-11-21 11:04 | PN ---
Progress Note - Progress Note Date of Service: 11/20/16 Note: Vaginal culture results obtained and was positive for gardnerella and negative for dru. Due to patients complaint of symptoms will be treated. Was not treated at discharge. Spoke with patient at 11am informed about results, instructed how to use medication and sent metrionidazole to pharmacy to use x5 days. Aware of worsening signs and symptoms and to return if persist. Follow up. No further change or action required at this time.
--- NOTE | 2016-11-21 17:18 | PN ---
Progress Note - Progress Note Date of Service: 11/21/16 Note: Patient vaginal culture grew gonorrhea. Dr prince says can use azithromycin 2000mg once. left vm with patient
== END 2016-11-20 02:40 | disposition home or self-care (01) ==
LOC: ED 19:25
DX: R10.2 Pelvic and perineal pain (principal); B96.89 Other specified bacterial agents as the cause of diseases classified elsewhere
CPT/HCPCS: 36415; 76830; 80053; 81003; 81015; 83605; 84702; 85025; 87480; 87491; 87510; 87591; 87661; 96360; 96374; 96375; 99284; J2270; J2405

== ENCOUNTER 2016-11-29 21:42 | Emergency (ER) | payer OTHER ==
[2016-11-29 22:00] VITALS: BP 121/61
[2016-11-29] MEDS ORDERED: Ondansetron ODT TAB* 4 MG PO ONE (22:43)
[2016-11-29] MEDS ORDERED: cefTRIAXone VIAL(*) 250 MG VIAL IM ONE (22:44)
[2016-11-29] MEDS ORDERED: DOXYcycline CAP(*) 100 MG PO ONE (22:45)
[2016-11-29] MEDS ORDERED: HYDROcodone/ACETAMIN 5-325 MG* 1 TAB PO ONE (22:46)
[2016-11-29] MEDS ORDERED: Lidocaine 1% MPF* 2 ML VIAL ONE (22:49)
--- NOTE | 2016-11-29 23:06 | UC ---
Abdominal Pain Female HPI - HPI Summary HPI Summary: PT SEEN [facility] 11/19/16 AND POSITIVE FOR GONORRHEA AND BV. HAD AZITH 2000MG CALLED IN FOR HER. THE NEXT DAY (PRIOR TO BEING NOTIFIED OF THIS RESULT AND NEED FOR TX BY THE ER) PT WENT TO [facility] FOR TX HER PARTNER HAD INFORMED HER HE WAS POSITIVE FOR GONORRHEA. SHE WAS TREATED WITH ROCEPHIN IM AND AZITH 1GM. HAS USED METROGEL FOR PAST 4 NIGHTS. SYMPTOMS IMPROVED BUT 2 DAYS AGO SEVERE PELVIC PAIN RETURNED. PT HAS NAUSEA AND VAGINAL DISCHARGE WITH ODOR. NO FEVER. STARTED MENSES TODAY. PT STATES THE PAIN IS MUCH WORSE THAN PAIN FROM MENSES OR BV SHE HAS HAD IN THE PAST. CALLED [facility] BUT COULD NOT GET THERE BEFORE THEY CLOSED. - History of Current Complaint Chief Complaint: UCGU Stated Complaint: PELVIC PAIN,NAUSEA Time Seen by Provider: 11/29/16 22:13 Hx Obtained From: Patient Hx Last Menstrual Period: 11/29/16 Onset/Duration: Gradual Onset, Lasting Days, Still Present Timing: Constant Severity Initially: Moderate Severity Currently: Severe Pain Intensity: 10 Pain Scale Used: 0-10 Numeric Location: Diffuse Radiates: No Character: Cramping, Sharp Aggravating Factor(s): Nothing Alleviating Factor(s): Nothing Associated Signs and Symptoms: Positive: Vaginal Discharge, Nausea Allergies/Adverse Reactions: Allergies Allergy/AdvReac Type Severity Reaction Status Date / Time No Known Allergies Allergy Verified 11/29/16 21:52 Home Medications: Home Medications Norgestimate-Eth Estradiol(NF) [Ortho Tri-Cyclen (NF)] 1 tab PO DAILY 11/29/16 [ History Confirmed 11/29/16] PMH/Surg Hx/FS Hx/Imm Hx Previously Healthy: Yes Other History Of: Negative For: Anticoagulant Therapy - Surgical History Surgical History: Yes Surgery Procedure, Year, and Place: tubes in ears as a child, CSECTION X2, RENAL STENT PALCEMENT/REMOVAL - Family History Known Family History: Positive: Cardiac Disease, Hypertension, Diabetes, Other - Ovarian cysts - Social History Alcohol Use: Occasionally Alcohol Amount: 2-3/week Substance Use Type: None Smoking Status (MU): Never Smoked Tobacco Have You Smoked in the Last Year: No Household Exposure Type: Cigarettes - Immunization History Most Recent Influenza Vaccination: unknown Most Recent Tetanus Shot: 05/30/16 Most Recent Pneumonia Vaccination: NA Review of Systems Constitutional: Negative Respiratory: Negative Cardiovascular: Negative Gastrointestinal: Abdominal Pain, Nausea Genitourinary: Negative All Other Systems Reviewed And Are Negative: Yes Physical Exam Triage Information Reviewed: Yes Appearance: Well-Nourished, Pain Distress - MODERATE Vital Signs: Initial Vital Signs Temp 98.3 F 11/29/16 21:47 Pulse 87 11/29/16 21:47 Resp 16 11/29/16 21:47 BP 121/61 11/29/16 21:47 Pulse Ox 98 11/29/16 21:47 Vital Signs Reviewed: Yes Eyes: Positive: Conjunctiva Clear ENT: Positive: Hearing grossly normal Neck: Positive: Supple Respiratory Exam: Normal Cardiovascular Exam: Normal Abdomen Description: Positive: Soft, Other: - TENDER SUPRAPUBIC. Negative: Distended, Guarding Musculoskeletal: Positive: No Edema Neurological: Positive: Alert Psychological: Positive: Age Appropriate Behavior Skin: Negative: rashes Diagnostics - Laboratory Diagnostic Studies Completed/Ordered: URINE DIP UNREMARKABLE. URINE HCG NEGATIVE Abd Pain Female Course/Dx - Course Course Of Treatment: PT DECLINES PELVIC EXAM TODAY SHE WILL BE GOING TO [facility]OMORROW. - Differential Dx/Diagnosis Provider Diagnoses: PID Discharge - Discharge Plan Condition: Stable Disposition: HOME Prescriptions: Doxycycline (Monohydrate) [Doxycycline Monohydrate] 1 cap PO BID #27 cap Fluconazole [Diflucan] 1 tab PO ONCE #2 tab Hydrocodone-Acetaminophen [Lorcet 5-325 mg] 1 tab PO QID PRN #20 tab MDD 4 PRN Reason: Pain Metronidazole [Flagyl 500 MG TAB] 500 mg PO BID #14 tab Ondansetron ODT TAB* [Zofran Odt TAB*] 4 mg PO Q6H PRN #20 tab.odt PRN Reason: Nausea/Vomiting Patient Education Materials: Pelvic Pain in Women (ED), Pelvic Inflammatory Disease (ED) Referrals: Godwin Cheney MD [Primary Care Provider] - If Needed Additional Instructions: WE HAVE RE-TREATED YOU FOR PID TODAY WITH ROCEPHIN 250MG AND DOXYCYCLINE 100MG TWICE DAILY X 14 DAYS. YOUR SWAB FROM THE ER CAME BACK POSITIVE FOR BV. IF YOUR SYMPTOMS DO NOT IMPROVE WITH THE ROCEPHIN AND DOXY TAKE METRONIDAZOLE. NO SEX FOR AT LEAST 2 WEEKS. REMEMBER THAT YOUR CONTROL WILL NOT BE EFFECTIVE WITH THE ANTIBIOTICS. YOUR URINE TEST TODAY WAS UNREMARKABLE. FOLLOW-UP WITH [facility] TOMORROW. GO TO THE ER WITHOUT FAIL IF YOUR SYMPTOMS WORSEN.
== END 2016-11-29 23:29 | disposition home or self-care (01) ==
LOC: UCEAST 21:42
DX: N73.9 Female pelvic inflammatory disease, unspecified (principal); Z87.891 Personal history of nicotine dependence
CPT/HCPCS: 81003; 84702; 96372; 99213; A9270-GY; G0463; J0696

== ENCOUNTER 2017-01-18 18:08 | Emergency (ER) | payer OTHER ==
[2017-01-18] MEDS ORDERED: Ondansetron ODT TAB* 4 MG PO ONE ×2 (19:09→20:26)
--- NOTE | 2017-01-18 20:28 | ED ---
Throat Pain/Nasal Congestion - HPI Summary HPI Summary: 31F presents with sore throat, runny nose and sinus congestion for a week. She denies any fever. She states pain radiates to ears. She admits to occasionally cough. She states it is painful to swallowing. She admits to nausea. She denies any abdominal pain. She did vomit once last night. She has been taking Tylenol for pain without relief. People around her are sick with similar symptoms. She wants to be tested for GC in mouth so got culture. - History of Current Complaint Chief Complaint: EDThroatPain Time Seen by Provider: 01/18/17 18:19 - Allergies/Home Medications Allergies/Adverse Reactions: Allergies Allergy/AdvReac Type Severity Reaction Status Date / Time No Known Allergies Allergy Verified 11/29/16 21:52 PMH/Surg Hx/FS Hx/Imm Hx Endocrine/Hematology History: Denies: Hx Anticoagulant Therapy, Hx Diabetes, Hx Thyroid Disease Cardiovascular History: Denies: Hx Hypertension Respiratory History: Denies: Hx Asthma, Hx Chronic Obstructive Pulmonary Disease (COPD) GI History: Denies: Hx Ulcer History: Reports: Hx Kidney Stones - RIGHT, Other Problems/Disorders - hx of kidney stones with stent/stent removed 06/12 Psychiatric History: Reports: Hx Anxiety, Hx Depression - Surgical History Surgery Procedure, Year, and Place: tubes in ears as a child, CSECTION 01/2012/ RENAL STENT PALCEMENT/REMOVAL - Immunization History Date of Tetanus Vaccine: Unk Date of Influenza Vaccine: Unk Infectious Disease History: No Infectious Disease History: Denies: Hx Clostridium Difficile, Hx Hepatitis, Hx Human Immunodeficiency Virus (HIV), Hx of Known/Suspected MRSA, Hx Shingles, Hx Tuberculosis, Hx Known/ Suspected VRE, Hx Known/Suspected VRSA, History Other Infectious Disease, Traveled Outside the [place] in Last 30 Days - Family History Known Family History: Positive: None, Cardiac Disease, Hypertension, Diabetes, Other - Ovarian cysts - Social History Alcohol Use: Occasionally Alcohol Amount: 2-3/week Hx Substance Use: No Substance Use Type: Reports: None Hx Tobacco Use: No Smoking Status (MU): Never Smoked Tobacco Have You Smoked in the Last Year: No Review of Systems Negative: Fever Positive: Sore Throat, Nasal Discharge Negative: Chest Pain Positive: Cough. Negative: Shortness Of Breath All Other Systems Reviewed And Are Negative: Yes Physical Exam Triage Information Reviewed: Yes Vital Signs On Initial Exam: Initial Vitals Temp Pulse Resp BP Pulse Ox 97.9 F 77 14 125/59 100 01/18/17 18:10 01/18/17 18:10 01/18/17 18:10 01/18/17 18:10 01/18/17 18:10 Vital Signs Reviewed: Yes Appearance: Positive: Well-Appearing Skin: Positive: Warm, Dry Head/Face: Positive: Normal Head/Face Inspection Eyes: Positive: Normal, EOMI, NAOMY, Conjunctiva Clear ENT: Positive: Normal ENT inspection, Pharyngeal erythema, TMs normal, Other - uvula midline, soft palate symmetric. Negative: Tonsillar swelling, Tonsillar exudate, Trismus, Muffled/hoarse voice Neck: Positive: Supple, Nontender, No Lymphadenopathy Respiratory/Lung Sounds: Positive: Clear to Auscultation, Breath Sounds Present Cardiovascular: Positive: Normal, RRR Abdomen Description: Positive: Nontender, Soft Bowel Sounds: Positive: Present Diagnostics - Vital Signs Vital Signs Temp Pulse Resp BP Pulse Ox 01/18/17 18:10 97.9 F 77 14 125/59 100 - Laboratory Lab Results: Lab Results 01/18/17 Range/Units 19:02 Group A Strep Rapid Negative (Negative) Lab Statement: Any lab studies that have been ordered have been reviewed, and results considered in the medical decision making process. EENT Course/Dx - Course Course Of Treatment: 31F presents with sore throat, runny nose and sinus congestion for a week. She denies any fever. She states pain radiates to ears. She admits to occasionally cough. She states it is painful to swallowing. She admits to nausea. She denies any abdominal pain. She did vomit once last night. She has been taking Tylenol for pain without relief. People around her are sick with similar symptoms. She wants to be tested for GC in mouth so got culture. on exam throat erythema present but uvula midline and soft palate symmetric. abd soft nontender. strept neg. gave script for augmentin for in 3 days will be 10 days with sinus congestion and likely bacterial at that point. gave magic mouth wash. patient understands and agrees with plan. - Differential Diagnoses Differential Diagnoses: Pharyngitis, URI/Bronchitis, Other - strept - Diagnoses Provider Diagnoses: Pharyngitis Discharge - Discharge Plan Condition: Good Disposition: HOME Prescriptions: Amoxicillin/Clavulanate TAB* [Augmentin TAB 500 mg*] 500 mg PO BID #20 tab Fluticasone NASAL SPRAY 50MCG* [Flonase NASAL SPRAY 50MCG*] 1 spray BOTH NARES DAILY #1 btl Magic Mouth Was-RIOS/MAAL/LIDO* 5 ml SWISH SPIT QID #100 ml Ondansetron ODT TAB* [Zofran 4 MG Odt TAB*] 4 mg PO Q6H PRN #20 tab.odt PRN Reason: Nausea Patient Education Materials: Pharyngitis (ED) Referrals: Godwin Cheney MD [Primary Care Provider] - Additional Instructions: Magic mouthwash 5ml swish and spit can use 4x a day Take Tylenol or ibuprofen for pain every 6 hours Use saline spray in nose as much as needed for nasal congestion Use humidifier in room or can use warm water in bowls Can gargle salt water Can use cough drops or products such as cloraseptic spray Take zofran every 6 hours for nausea Take flonase one spray each nostril once a day Take augmentin twice a day for 10 days if after 3 days sinus congestion as not improved or if pressure becomes worst, caution it may make control ineffective so use alternate form of control Return to ED if develop fever does not respond to Tylenol or ibuprofen, inability to swallow, or difficulty breathing or any new or worsening symptoms
[2017-01-18 21:12] VITALS: BP 126/73
== END 2017-01-18 21:12 | disposition home or self-care (01) ==
LOC: ED 18:08
DX: J02.9 Acute pharyngitis, unspecified (principal); R09.81 Nasal congestion; R05 Cough
CPT/HCPCS: 87070; 87491; 87591; 87651; 99282; A9270-GY

== ENCOUNTER 2017-03-10 16:58 | Emergency (ER) | payer OTHER ==
--- NOTE | 2017-03-10 19:52 | RAD ---
Indication: RIGHT knee pain and swelling. No preceding injury. Comparison: August 11, 2014 Technique: RIGHT knee: AP, tunnel, crosstable lateral, sunrise views. Report: Normal alignment. Negative for effusion or fracture. Minimal osteophytosis without significant joint space narrowing. Unremarkable soft tissue contours accounting for body habitus. IMPRESSION: Kellgren and Sai grade 1 osteoarthritis.
[2017-03-10] MEDS ORDERED: HYDROcodone/ACETAMIN 5-325 MG* 1 TAB PO ONE (19:57)
--- NOTE | 2017-03-10 20:04 | ED ---
Lower Extremity - HPI Summary HPI Summary: 31 female presents to ED with complaints of right knee pain and swelling that has been ongoing for the past year, without known trauma or injury. States over the past 3-4 days she has been having increased pain with walking and movement. States pain and swelling is on anterior knee and has looked that way for the past year without change. Has not improved. Swelling has not worsened. Denies redness, bruising and calf pain. No recent prolonged bed rest, tobacco use or long distance travel. Is taking OCP. Has been taking ibuprofen/naproxen without relief. Swelling never goes down and patient is always on her feet. No chest pain or trouble breathing. No other complaints. No PMHx. - History of Current Complaint Chief Complaint: EDExtremityLower Stated Complaint: RT KNEE SWOLLEN Time Seen by Provider: 03/10/17 19:03 Hx Obtained From: Patient Hx Last Menstrual Period: 07/10/14 Mechanism Of Injury: Unknown Onset of Pain: Days Onset/Duration: Weeks - 1 year Severity Initially: Moderate Severity Currently: Severe Pain Intensity: 9 Pain Scale Used: 0-10 Numeric Timing: Constant Location: Is Discrete @ - right anterior knee Character Of Pain: Sharp, Aching Associated Signs And Symptoms: Positive: Swelling, Knee Pain. Negative: Redness , Bruising, Fever, Weakness Aggravating Factor(s): Standing, Ambulation, Weight Bearing Alleviating Factor(s): Rest Able to Bear Weight: Yes - Allergies/Home Medications Allergies/Adverse Reactions: Allergies Allergy/AdvReac Type Severity Reaction Status Date / Time No Known Allergies Allergy Verified 11/29/16 21:52 PMH/Surg Hx/FS Hx/Imm Hx Endocrine/Hematology History: Denies: Hx Anticoagulant Therapy, Hx Diabetes, Hx Thyroid Disease Cardiovascular History: Denies: Hx Hypertension Respiratory History: Denies: Hx Asthma, Hx Chronic Obstructive Pulmonary Disease (COPD) GI History: Denies: Hx Ulcer History: Reports: Hx Kidney Stones - RIGHT, Other Problems/Disorders - hx of kidney stones with stent/stent removed 06/12 Psychiatric History: Reports: Hx Anxiety, Hx Depression - Surgical History Surgery Procedure, Year, and Place: tubes in ears as a child, CSECTION 01/2012/ RENAL STENT PALCEMENT/REMOVAL - Immunization History Date of Tetanus Vaccine: Unk Date of Influenza Vaccine: Unk Immunizations Up to Date: Yes Infectious Disease History: No Infectious Disease History: Denies: Hx Clostridium Difficile, Hx Hepatitis, Hx Human Immunodeficiency Virus (HIV), Hx of Known/Suspected MRSA, Hx Shingles, Hx Tuberculosis, Hx Known/ Suspected VRE, Hx Known/Suspected VRSA, History Other Infectious Disease, Traveled Outside the [place] in Last 30 Days - Family History Known Family History: Positive: None, Cardiac Disease, Hypertension, Diabetes, Other - Ovarian cysts - Social History Alcohol Use: Occasionally Alcohol Amount: 2-3/week Hx Substance Use: No Substance Use Type: Reports: None Hx Tobacco Use: No Smoking Status (MU): Never Smoked Tobacco Have You Smoked in the Last Year: No Review of Systems Constitutional: Negative Cardiovascular: Negative Respiratory: Negative Positive: Arthralgia, Myalgia, Decreased ROM, Edema - right knee All Other Systems Reviewed And Are Negative: Yes Physical Exam Triage Information Reviewed: Yes Vital Signs On Initial Exam: Initial Vitals Temp Pulse Resp BP Pulse Ox 98.5 F 92 20 135/79 98 03/10/17 17:11 03/10/17 17:11 03/10/17 17:11 03/10/17 17:11 03/10/17 17:11 Vital Signs Reviewed: Yes Appearance: Positive: Well-Appearing, No Pain Distress, Well-Nourished Skin: Positive: Warm, Skin Color Reflects Adequate Perfusion, Dry, Other - no warmth or erythema. Negative: Cold, Numb, Cyanosis @, Pale, Erythema @ Head/Face: Positive: Normal Head/Face Inspection Eyes: Positive: Conjunctiva Clear ENT: Positive: Hearing grossly normal Neck: Positive: Supple Respiratory/Lung Sounds: Positive: Clear to Auscultation, Breath Sounds Present. Negative: Rales, Rhonchi, Wheezes Cardiovascular: Positive: Normal, RRR, Pulses are Symmetrical in both Upper and Lower Extremities - 2+ pedal bl. Negative: Murmur, Rub, Leg Edema Left, Leg Edema Right Musculoskeletal: Positive: Normal, Strength/ROM Intact - some limitation with right knee flexion due to swelling, Pain @ - with ROM but able, Edema Right - anterior knee over patella when compared to right, rest of leg normal. Negative : Limited @, Interruption @, Abnormal @, Katelin Sign Left, Katelin Sign Right, Edema Left Neurological: Positive: Normal, Sensory/Motor Intact, Alert, Oriented to Person Place, Time, CN Intact II-III, Reflexes Intact, NV Bundle Intact Distally, Normal Gait - favoring left side - Albino Coma Scale Coma Scale Total: 15 Diagnostics - Vital Signs Vital Signs Temp Pulse Resp BP Pulse Ox 03/10/17 17:11 98.5 F 92 20 135/79 98 - Laboratory Lab Statement: Any lab studies that have been ordered have been reviewed, and results considered in the medical decision making process. - Radiology right knee Xray Interpretation: No Acute Changes - Kellgren and Sai grade 1 osteoarthritis. Normal alignment. Negative for effusion or fracture. Minimal osteophytosis without significant joint space narrowing. Unremarkable soft tissue contours accounting for body habitus. Radiology Interpretation Completed By: Radiologist Lower Extremity Course/Dx - Course Course Of Treatment: gave pain management while in ED. will send home. xray obtained and negative other than osteoarthritis. due to complaint of symptoms and length of symptoms not highly suspicious of other etilogy such as DVT. Discussed option of US to rule out other cause although unlikely, such as DVT however patient agreed to wait if symptoms worsen and would talk to PCP rather than have it completed today due to susipcion being low. Normal PE findings other than pain with ROM and some swelling when compared to left knee. RICE, pain medication, continue naproxen and follow up with ortho/pcp for further eval and work up. fernando wrap and immobilizer. aware of worsening signs adn symptoms to watch out for. patient agrees and understands plan. - Diagnoses Differential Diagnosis/HQI/PQRI: Positive: Arthritis, Contusion, DVT, Fracture ( Closed), Sprain, Strain, Other - joint effusion, Provider Diagnoses: Pain and swelling of right knee Discharge - Discharge Plan Condition: Stable Disposition: HOME Prescriptions: HYDROcodone/ACETAMIN 5-325 MG* [Obion 5-325 TAB*] 1 tab PO Q6H PRN #10 tab MDD 2 PRN Reason: Pain Naproxen TAB* [Naprosyn 375 mg TAB*] 375 mg PO BID PRN #30 tab PRN Reason: Pain Patient Education Materials: Swollen Knee Joint (ED), Knee Pain (ED), Osteoarthritis (ED) Referrals: Godwin Cheney MD [Primary Care Provider] - Caden Shrestha MD [Medical Doctor] - Additional Instructions: Wear fernando bandage and knee immobilizer to help with pain and swelling. Elevate, rest and ice 20 minutes on and 20 minutes off. Continue naproxen with food, norco for breakthrough pain. Make an appointment with PCP and Ortho for further evaluation, work up and imaging. There are specific medications for osteoarthritis that may be worth trying, if no other cause. Any new or worsening symptoms, as we discussed (redness, increased pain, paleness, swelling of calf) please seek medical attention promptly.
[2017-03-10 20:33] VITALS: BP 116/76
== END 2017-03-10 20:39 | disposition home or self-care (01) ==
LOC: ED 16:58
DX: M25.561 Pain in right knee (principal); M25.461 Effusion, right knee
CPT/HCPCS: 99282

== ENCOUNTER 2017-05-04 17:01 | Emergency (ER) | payer OTHER ==
[2017-05-04] MEDS ORDERED: NS 0.9% 1000 ML* 1,000 ML IV ONE (18:41)
[2017-05-04] MEDS ORDERED: Morphine INJ* 4 MG/ML 1 ML CARPUJECT IV ONE (18:41)
[2017-05-04] MEDS ORDERED: Ondansetron INJ* 2 MG/ML VIAL IV ONE (18:41)
[2017-05-04 19:05] LABS: ABS Basophils 0.1 10^3/ul (0-0.2); ABS Eosinophils 0.2 10^3/ul (0-0.6); ABS Lymphocytes 3.2 10^3/ul (1.0-4.8); ABS Monocytes 0.7 10^3/ul (0-0.8); ABS Neutrophils 5.1 10^3/ul (1.5-7.7); ABS Nucleated RBC 0 10^3/ul; Eosinophil % 1.9 % (0-6); Hematocrit 40 % (35-47); Hemoglobin 13.3 g/dl (12.0-16.0); Lymphocyte % 34.7 % (25-47); Mean Corpuscular HGB Conc 33 g/dl (31-36); Mean Corpuscular Hemoglobin 28 pg (27-31); Mean Corpuscular Volume 85 fL (80-97); Mean Platelet Volume 10 um3 (7.4-10.4); Nucleated Red Blood Cells % 0; Platelet Count 283 10^3/ul (150-450); Red Blood Count 4.71 10^6/ul (4.0-5.4); Red Cell Distribution Width 13 % (10.5-15); White Blood Count 9.2 10^3/ul (3.5-10.8)
[2017-05-04 19:06] LABS: Urine Appearance Clear; Urine Blood Negative (Negative); Urine Color Yellow; Urine Ketones Negative (Negative); Urine Protein Negative (Negative); Urine Specific Gravity 1.025 (1.010-1.030); Urine Urobilinogen Negative (Negative)
[2017-05-04 19:18] LABS: EGFR Non-African American 83.6 (>60)
--- NOTE | 2017-05-04 19:26 | RAD ---
INDICATION: Right flank abdominal pain history of kidney stones. COMPARISON: Comparison is made with a prior study from August 24, 2016. TECHNIQUE: A CT scan of the abdomen and pelvis was performed without intravenous or oral contrast. Contiguous axial sections were obtained from the lung bases through the symphysis pubis. Images were reconstructed in the coronal and sagittal planes. FINDINGS: The lung bases are clear. No pleural effusion is present. The liver appears mildly enlarged and decreased in attenuation most consistent with fatty infiltration. No significant focal abnormality is seen on this noncontrast study. No calcified gallstones are noted. The spleen is within normal limits in size. The pancreas appears normal. The adrenal glands and kidneys are normal in size. No renal calculi or hydronephrosis is seen. No ureteral or bladder calculi are seen. The aorta is normal in caliber without significant calcific plaque. No significant enlarged retroperitoneal lymph nodes are seen. There appears to be a small hiatal hernia present. The stomach, small and large bowel appear nondistended. The appendix is within normal limits. There is mild descending and sigmoid diverticulosis without evidence for diverticulitis or colitis. There is a small periumbilical hernia containing fat. The uterus is retroverted and normal in size. There is a tampon within the vagina. No free intraperitoneal air or fluid is seen. No significant focal osseous abnormality is seen. IMPRESSION: 1. NO EVIDENCE FOR ACUTE FINDING OR CAUSE FOR THE PATIENT'S ABDOMINAL PAIN IS SEEN. 2. MILD HEPATOMEGALY AND HEPATIC STEATOSIS.
--- NOTE | 2017-05-04 20:39 | ED ---
Back Pain - HPI Summary HPI Summary: Pt here w/ Rt flank pain x 2 weeks. 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 She also reports urinary urgency w/ frequency at times - no irasema dysuria or hematuria. Nausea w/o vomiting since this started. Pain wraps around Rt side and sometimes she gets pain in Lt kidney as well. Has been constipated as of late (not drinking enough water). Denies fever, chills, chest pain, headache, shortness of breath, vaginal sx and no LE's sx. H/o stone on Rt in the past - 8mm requiring lithotripsy. This went undetected for 2 months as she could only have U/S (was at the time). No residual issues since although she reports sx over past 2 weeks are similar to pain at that time. Also reports h/o UTI when for other child - resolved w/ treatment. No injuries to back but has not been sleeping well for a few months as she has a 10 month old son who has been sick a great deal and keeping her up at night - in the process of figuring out his issues. 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 NOTE: was seen at earlier this week for her annual appt and had all STD testing performed which was normal. Menstruating currently. No h/o back issues/ALVARO injury. - History of Current Complaint Chief Complaint: EDFlankPain Stated Complaint: FLANK PAIN Time Seen by Provider: 05/04/17 18:23 Hx Obtained From: Patient Hx Last Menstrual Period: 07/10/14 Pain Intensity: 7 - Allergies/Home Medications Allergies/Adverse Reactions: Allergies Allergy/AdvReac Type Severity Reaction Status Date / Time No Known Allergies Allergy Verified 05/04/17 17:11 PMH/Surg Hx/FS Hx/Imm Hx Previously Healthy: Yes - other than prolonged stress Endocrine/Hematology History: Denies: Hx Anticoagulant Therapy, Hx Diabetes, Hx Thyroid Disease Cardiovascular History: Denies: Hx Aneurysm, Hx Hypertension Respiratory History: Denies: Hx Asthma, Hx Chronic Obstructive Pulmonary Disease (COPD) GI History: Denies: Hx Cirrhosis, Hx Crohn's Disease, Hx Diverticulosis, Hx Gall Bladder Disease, Hx Gastroesophageal Reflux Disease, Hx Gastrointestinal Bleed, Hx Hiatal Hernia, Hx Irritable Bowel, Hx Ulcer History: Reports: Hx Kidney Stones - RIGHT, Other Problems/Disorders - hx of kidney stones with stent/stent removed 06/12 Musculoskeletal History: Denies: Hx Arthritis, Hx Back Problems, Hx Fibromyalgia, Hx Orthopedic Injury , Hx Osteoporosis Psychiatric History: Reports: Hx Anxiety, Hx Depression - Surgical History Surgery Procedure, Year, and Place: tubes in ears as a child, CSECTION x2 / RENAL STENT PALCEMENT/REMOVAL - Immunization History Date of Tetanus Vaccine: unknown Date of Influenza Vaccine: NO Infectious Disease History: No Infectious Disease History: Denies: Hx Clostridium Difficile, Hx Hepatitis, Hx Human Immunodeficiency Virus (HIV), Hx of Known/Suspected MRSA, Hx Shingles, Hx Tuberculosis, Hx Known/ Suspected VRE, Hx Known/Suspected VRSA, History Other Infectious Disease, Traveled Outside the [place] in Last 30 Days - Family History Known Family History: Positive: Cardiac Disease, Hypertension, Diabetes, Other - Ovarian cysts - Social History 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 Negative: Vomiting, Diarrhea Positive: see HPI Musculoskeletal: Other - "flank pain" Skin: Negative Neurological: Negative Negative: Weakness, Paresthesia, Numbness, Syncope, Slurred Speech Positive: Anxious - frustrated w/ child's recurring URI sx affecting her sleep All Other Systems Reviewed And Are Negative: Yes Physical Exam Triage Information Reviewed: Yes Vital Signs On Initial Exam: Initial Vitals Temp Pulse Resp BP Pulse Ox 98.7 F 91 16 121/77 97 05/04/17 17:07 05/04/17 17:07 05/04/17 17:07 05/04/17 17:07 05/04/17 17:07 Vital Signs Reviewed: Yes Appearance: Positive: Well-Appearing, No Pain Distress - although she reports pain x 2 weeks, Obese Skin: Positive: Warm, Skin Color Reflects Adequate Perfusion, Dry - no ecchymosis or skin changes over affected areas Head/Face: Positive: Normal Head/Face Inspection Eyes: Positive: Normal, EOMI, NAOMY, Conjunctiva Clear - anicteric sclera ENT: Positive: Normal ENT inspection, Hearing grossly normal, Pharynx normal. Negative: Nasal congestion, Nasal drainage Neck: Positive: Supple, Nontender - no gross thyromegaly, No Lymphadenopathy Respiratory/Lung Sounds: Positive: Clear to Auscultation, Breath Sounds Present. Negative: Rales, Rhonchi, Wheezes Cardiovascular: Positive: Normal, RRR, Pulses are Symmetrical in both Upper and Lower Extremities, S1, S2. Negative: Murmur, Rub, Leg Edema Left, Leg Edema Right Abdomen Description: Positive: No Organomegaly, Soft, CVA Tenderness (R), Other : - Mild Rt side and RUQ TTP - no rebounding. Negative: CVA Tenderness (L), Distended, Guarding Bowel Sounds: Positive: Present Pelvic Exam: Positive: other - deferred given recent w/u at [facility] per pt w/o intercourse since Musculoskeletal: Positive: Strength/ROM Intact, Other - Rt QL/flank area TTP; mild TTP over Lt QL/flank area - spinous pp NTTP; SI joint regions are with mild TTP; no gross deformity. Negative: Limited @ Neurological: Positive: Normal, Sensory/Motor Intact, Alert, Oriented to Person Place, Time, CN Intact II-III Psychiatric: Positive: Normal - pt is calm and cooperative but reports she's been dealing with her frustration with son's recurring URI sx, adding to stress of day to day life as this is emotionally upsetting and interrupting her sleep. - [place] Coma Scale Coma Scale Total: 15 Diagnostics - Vital Signs Vital Signs Temp Pulse Resp BP Pulse Ox 05/04/17 19:20 18 05/04/17 17:07 98.7 F 91 16 121/77 97 - Laboratory Lab Results: Lab Results 05/04/17 05/04/17 05/04/17 Range/Units 18:48 18:48 18:48 WBC 9.2 (3.5-10.8) 10^3/ul RBC 4.71 (4.0-5.4) 10^6/ul Hgb 13.3 (12.0-16.0) g/dl Hct 40 (35-47) % MCV 85 (80-97) fL MCH 28 (27-31) pg MCHC 33 (31-36) g/dl RDW 13 (10.5-15) % Plt Count 283 (150-450) 10^3/ul MPV 10 (7.4-10.4) um3 Neut % (Auto) 55.5 (38-83) % Lymph % (Auto) 34.7 (25-47) % Heard % (Auto) 7.3 (1-9) % Eos % (Auto) 1.9 (0-6) % Baso % (Auto) 0.6 (0-2) % Absolute Neuts (auto) 5.1 (1.5-7.7) 10^3/ul Absolute Lymphs (auto) 3.2 (1.0-4.8) 10^3/ul Absolute Monos (auto) 0.7 (0-0.8) 10^3/ul Absolute Eos (auto) 0.2 (0-0.6) 10^3/ul Absolute Basos (auto) 0.1 (0-0.2) 10^3/ul Absolute Nucleated RBC 0 10^3/ul Nucleated RBC % 0 Sodium 135 (133-145) mmol/L Potassium 3.8 (3.5-5.0) mmol/L Chloride 102 (101-111) mmol/L Carbon Dioxide 27 (22-32) mmol/L Anion Gap 6 (2-11) mmol/L BUN 16 (6-24) mg/dL Creatinine 0.81 (0.51-0.95) mg/dL Est GFR ( Amer) 107.5 (>60) Est GFR (Non-Af Amer) 83.6 (>60) BUN/Creatinine Ratio 19.8 (8-20) Glucose 88 (70-100) mg/dL Lactic Acid 1.0 (0.5-2.0) mmol/L Calcium 9.2 (8.6-10.3) mg/dL Magnesium 2.0 (1.9-2.7) mg/dL Total Bilirubin 0.40 (0.2-1.0) mg/dL AST 12 L (13-39) U/L ALT 12 (7-52) U/L Alkaline Phosphatase 55 (34-104) U/L C-Reactive Protein 4.89 (< 5.00) mg/L Total Protein 7.3 (6.4-8.9) g/dL Albumin 4.0 (3.2-5.2) g/dL Globulin 3.3 (2-4) g/dL Albumin/Globulin Ratio 1.2 (1-3) Lipase 29 (11.0-82.0) U/L Beta HCG, Quant < 0.60 mIU/mL Urine Color Urine Appearance Urine pH (5-9) Ur Specific [place] (1.010-1.030) Urine Protein (Negative) Urine Ketones (Negative) Urine Blood (Negative) Urine Nitrate (Negative) Urine Bilirubin (Negative) Urine Urobilinogen (Negative) Ur Leukocyte Esterase (Negative) Urine Glucose (Negative) 05/04/17 Range/Units 18:48 WBC (3.5-10.8) 10^3/ul RBC (4.0-5.4) 10^6/ul Hgb (12.0-16.0) g/dl Hct (35-47) % MCV (80-97) fL MCH (27-31) pg MCHC (31-36) g/dl RDW (10.5-15) % Plt Count (150-450) 10^3/ul MPV (7.4-10.4) um3 Neut % (Auto) (38-83) % Lymph % (Auto) (25-47) % Heard % (Auto) (1-9) % Eos % (Auto) (0-6) % Baso % (Auto) (0-2) % Absolute Neuts (auto) (1.5-7.7) 10^3/ul Absolute Lymphs (auto) (1.0-4.8) 10^3/ul Absolute Monos (auto) (0-0.8) 10^3/ul Absolute Eos (auto) (0-0.6) 10^3/ul Absolute Basos (auto) (0-0.2) 10^3/ul Absolute Nucleated RBC 10^3/ul Nucleated RBC % Sodium (133-145) mmol/L Potassium (3.5-5.0) mmol/L Chloride (101-111) mmol/L Carbon Dioxide (22-32) mmol/L Anion Gap (2-11) mmol/L BUN (6-24) mg/dL Creatinine (0.51-0.95) mg/dL Est GFR ( Amer) (>60) Est GFR (Non-Af Amer) (>60) BUN/Creatinine Ratio (8-20) Glucose (70-100) mg/dL Lactic Acid (0.5-2.0) mmol/L Calcium (8.6-10.3) mg/dL Magnesium (1.9-2.7) mg/dL Total Bilirubin (0.2-1.0) mg/dL AST (13-39) U/L ALT (7-52) U/L Alkaline Phosphatase (34-104) U/L C-Reactive Protein (< 5.00) mg/L Total Protein (6.4-8.9) g/dL Albumin (3.2-5.2) g/dL Globulin (2-4) g/dL Albumin/Globulin Ratio (1-3) Lipase (11.0-82.0) U/L Beta HCG, Quant mIU/mL Urine Color Yellow Urine Appearance Clear Urine pH 6.0 (5-9) Ur Specific [place] 1.025 (1.010-1.030) Urine Protein Negative (Negative) Urine Ketones Negative (Negative) Urine Blood Negative (Negative) Urine Nitrate Negative (Negative) Urine Bilirubin Negative (Negative) Urine Urobilinogen Negative (Negative) Ur Leukocyte Esterase Negative (Negative) Urine Glucose Negative (Negative) Result Diagrams: 05/04/17 18:48 05/04/17 18:48 Diagnostic Studies Comment: CT ab/pelvis w/o contrast to evaluate for urinary tract stone as she is reporting hx of this and sx same today. CT report is negative for any urinary pathology as well as reproductive organ pathology. She does have findings of small hiatial hernia, diverticulosis, small fat containing periumbilical hernia and fatty liver. She was unaware of any of these issues prior to today. She admits to indigestion sometimes as she eats on the fly and then goes for long periods without eating times d/t kids and work schedule but has not created major issues for her where she felt the need to seek medical help. She also denies loose or floating stools and no known issues w/ cholesterol but is overweight and does consume ETOH somewhat regularly which we discussed can contribute to fatty liver. In re: to her diverticulosis, explained the process and how to address constipation however she does not apear to have inflammation here today and so does not appear to be source of her pain. Pain could be from fatty liver, poor gallbladder function (no acute lab findings of concern for liver function), renal reflux (no acute issues here today on CT nor with labs), movement of hiatal hernia (cc doesn't correlate well here) and/or constipation triggering referred pain to back and nausea. She may also have ALVARO pain in these areas as she does stand for long hours, carry and lift at work and home and does not stretch, exercise nor hydrate well. We also discussed the possibility of her stress creating pain in previous areas of inflammation and injury (ie. kidneys). She will try to implement healthier lifestyle habits and continue to address her son's health issues with some new approaches. Furthermore, she will f/u w/ PCP about new findings on CT here today to assess oupt testing/care plans as needed. Lengthy discussion w/ pt about these issues. She voices understanding and agrees w/ plan. Will return to ED if danger s/sx present. Lab Statement: Any lab studies that have been ordered have been reviewed, and results considered in the medical decision making process. Back Pain Course/Dx - Course Course Of Treatment: See "DIAG" for details - Diagnoses Provider Diagnoses: Flank pain, Hiatal hernia, Fatty liver, Periumbilical hernia, Diverticulosis, Back pain Discharge - Discharge Plan Condition: Stable Disposition: HOME Patient Education Materials: Hiatal Hernia (ED), Diverticulosis (ED), Non- Alcoholic Fatty Liver Disease (ED), Flank Pain (ED), Back Pain (ED) Referrals: Godwin Cheney MD [Primary Care Provider] - Additional Instructions: The definitive cause of your pain was not identified tonight. However all of your tests were negative for acute life threatening pathology. We discussed a number of issues that may be causing your pain, one being inflammation of previously stressed areas and another back pain from muscle strain. Education about addressing these issues along with stress reduction, better sleep, etc provided. If your symptoms do not improve with these trials, follow-up with PCP. You may also benefit from a follow-up with urologist as you could have functional issues with your urinary tract system that we were not able to screen for tonight (ie. renal reflux, etc). Call to schedule an appointment. Many of the other education pieces are regarding incidental findings on CT tonight (hiatal hernia, fatty liver, and diverticulosis). Please schedule a follow-up with your PCP to better assess these issues *If any of your become worse or new symptoms develop (ie. fever, chills vomiting , change in urination, chest pain, difficulty breathing or swallowing, extreme weakness, syncope), return to ED
[2017-05-04 21:14] VITALS: BP 118/74
== END 2017-05-04 21:12 | disposition home or self-care (01) ==
LOC: ED 17:01
DX: K44.9 Diaphragmatic hernia without obstruction or gangrene (principal); K42.9 Umbilical hernia without obstruction or gangrene; K76.0 Fatty (change of) liver, not elsewhere classified; K57.90 Diverticulosis of intestine, part unspecified, without perforation or abscess without bleeding; R10.84 Generalized abdominal pain; M54.9 Dorsalgia, unspecified
CPT/HCPCS: 36415; 74176; 80053; 81003; 83605; 83690; 83735; 84702; 85025; 86140; 96374; 96375; 99284; J2270; J2405

== ENCOUNTER 2017-05-29 19:36 | Emergency (ER) | payer OTHER ==
[2017-05-29] MEDS ORDERED: Acetaminophen TAB* 325 MG PO ONE (21:31)
[2017-05-29] MEDS ORDERED: Ondansetron ODT TAB* 4 MG SL ONE (21:31)
--- NOTE | 2017-05-29 21:39 | ED ---
Influenza-Like Illness - HPI Summary HPI Summary: Patient presents to the ED with 2 days of sweats, chills, sore throat, body aches. 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 Denies the flu vaccine this year. She is otherwise healthy and takes no medications. Denies chest pain, chest pressure or shortness of breath. Endorses mild cough without production. She denies any fevers but has been taking Tylenol and ibuprofen intermittently every 3-4 hours. She is more fatigued than usual. Denies abdominal pain, but endorses nausea. Denies diarrhea, constipation. Eating and drinking okay but decreased po intake. Vital signs are stable on arrival, and she does not appear to be dehydrated. Slightly diaphoretic, good turgor, cap refill <2. - History of Current Complaint Chief Complaint: EDFluSymptoms Time Seen by Provider: 05/29/17 21:21 Hx Obtained From: Patient Onset/Duration: Gradual Onset Severity: Moderate Associated Signs & Symptoms: Fever, T Max, F/C Related Hx: Possible Flu/Infectious Exposure - Risk Factors Influenza Risk Factors: Negative - Allergy/Home Medications Allergies/Adverse Reactions: Allergies Allergy/AdvReac Type Severity Reaction Status Date / Time No Known Allergies Allergy Verified 05/04/17 17:11 PMH/Surg Hx/FS Hx/Imm Hx Previously Healthy: Yes Endocrine/Hematology History: Denies: Hx Anticoagulant Therapy, Hx Diabetes, Hx Thyroid Disease Cardiovascular History: Denies: Hx Aneurysm, Hx Hypertension Respiratory History: Denies: Hx Asthma, Hx Chronic Obstructive Pulmonary Disease (COPD) GI History: Denies: Hx Cirrhosis, Hx Crohn's Disease, Hx Diverticulosis, Hx Gall Bladder Disease, Hx Gastroesophageal Reflux Disease, Hx Gastrointestinal Bleed, Hx Hiatal Hernia, Hx Irritable Bowel, Hx Ulcer History: Reports: Hx Kidney Stones - RIGHT, Other Problems/Disorders - hx of kidney stones with stent/stent removed 06/12 Musculoskeletal History: Denies: Hx Arthritis, Hx Back Problems, Hx Fibromyalgia, Hx Orthopedic Injury , Hx Osteoporosis Psychiatric History: Reports: Hx Anxiety, Hx Depression - Surgical History Surgery Procedure, Year, and Place: tubes in ears as a child, CSECTION x2 / RENAL STENT PALCEMENT/REMOVAL - Immunization History Date of Tetanus Vaccine: unknown Date of Influenza Vaccine: NO Hx Pertussis Vaccination: No Immunizations Up to Date: Unable to Obtain/Confirm Infectious Disease History: No Infectious Disease History: Denies: Hx Clostridium Difficile, Hx Hepatitis, Hx Human Immunodeficiency Virus (HIV), Hx of Known/Suspected MRSA, Hx Shingles, Hx Tuberculosis, Hx Known/ Suspected VRE, Hx Known/Suspected VRSA, History Other Infectious Disease, Traveled Outside the [place] in Last 30 Days - Family History Known Family History: Positive: None, Cardiac Disease, Hypertension, Diabetes, Other - Ovarian cysts - Social History Occupation: Employed Full-time Lives: With Family - I will order to start Alcohol Use: Occasionally Alcohol Amount: 2-3/week Hx Substance Use: No Substance Use Type: Reports: None Hx Tobacco Use: No Smoking Status (MU): Never Smoked Tobacco Have You Smoked in the Last Year: No Review of Systems Constitutional: Negative Negative: Fever, Chills, Fatigue, Skin Diaphoresis Eyes: Negative Cardiovascular: Negative Positive: Nausea Positive: no symptoms reported, see HPI Positive: Myalgia Skin: Negative Neurological: Negative Positive: Anxious All Other Systems Reviewed And Are Negative: Yes Physical Exam Triage Information Reviewed: Yes Vital Signs On Initial Exam: Initial Vitals Temp Pulse Resp BP Pulse Ox 97.9 F 85 18 120/82 99 05/29/17 19:41 05/29/17 19:41 05/29/17 19:41 05/29/17 19:41 05/29/17 19:41 Vital Signs Reviewed: Yes Appearance: Positive: Well-Appearing, Well-Nourished Skin: Positive: Warm, Skin Color Reflects Adequate Perfusion Head/Face: Positive: Normal Head/Face Inspection Eyes: Positive: EOMI, Conjunctiva Clear Neck: Positive: Supple, No Lymphadenopathy Respiratory/Lung Sounds: Positive: Clear to Auscultation, Breath Sounds Present Cardiovascular: Positive: Normal Musculoskeletal: Positive: Pain @ - Diffuse myalgias Neurological: Positive: Speech Normal Psychiatric: Positive: Affect/Mood Appropriate Diagnostics - Vital Signs Vital Signs Temp Pulse Resp BP Pulse Ox 05/29/17 19:41 97.9 F 85 18 120/82 99 - Laboratory Lab Results: Lab Results 05/29/17 Range/Units 19:55 Influenza A (Rapid) Negative (Negative) Influenza B (Rapid) Negative (Negative) Lab Statement: Any lab studies that have been ordered have been reviewed, and results considered in the medical decision making process. Flu Symptom Course/Dx - Course Course Of Treatment: During the course of treatment, flu swabs obtained and negative. She is given crackers and torey sachin. She is given Zofran 4 mg sublingual and Tylenol 650 mg. I have advised she drink plenty of fluids and rest as this is likely a viral syndrome as she has no other signs or symptoms of flu or systemic infection. She denies any urinary symptoms or back pain. - Diagnoses Provider Diagnoses: Viral syndrome Discharge - Discharge Plan Condition: Stable Disposition: HOME Patient Education Materials: Viral Syndrome (ED) Forms: *Work Release Referrals: Godwin Cheney MD [Primary Care Provider] - Additional Instructions: Drink plenty of fluids Follow-up with PCP Off work 3 days Believe you have a viral illness, which is treated symptomatically Humidifier in the home will help Tylenol 650 mg 3 times daily for discomfort If he develops any worsening symptoms return to the ED immediately Cepacol tabs which are [id number] for any sore throat
[2017-05-29 22:10] VITALS: BP 124/79
== END 2017-05-29 22:08 | disposition home or self-care (01) ==
LOC: ED 19:36
DX: B34.9 Viral infection, unspecified (principal)
CPT/HCPCS: 87502; A9270-GY

== ENCOUNTER 2017-06-18 12:48 | Emergency (ER) | payer OTHER ==
[2017-06-18 16:12] LABS: Urine Appearance Clear; Urine Blood Negative (Negative); Urine Color Yellow; Urine Ketones Negative (Negative); Urine Protein Negative (Negative); Urine Urobilinogen Negative (Negative)
[2017-06-18 17:37] VITALS: BP 128/92
== END 2017-06-18 18:12 | disposition left against medical advice (07) ==
LOC: ED 12:48
DX: R10.9 Unspecified abdominal pain (principal); Z53.21 Procedure and treatment not carried out due to patient leaving prior to being seen by health care provider
CPT/HCPCS: 81003; 81015; 87086

== ENCOUNTER 2017-06-18 17:16 | Emergency (ER) | payer OTHER ==
[2017-06-18] MEDS ORDERED: HYDROcodone/ACETAMIN 5-325 MG* 1 TAB PO ONE (19:18)
--- NOTE | 2017-06-18 19:27 | UC ---
Complaint Female HPI - HPI Summary HPI Summary: WOKE UP THIS MORNING WITH RIGHT FLANK PAIN. NO FEVER, NAUSEA OR URINARY SX. HAD A KIDNEY STONE 1 YR AGO AND THIS FEELS THE SAME. - History Of Current Complaint Chief Complaint: UCBackPain Stated Complaint: BACK PAIN,SPASMS Time Seen by Provider: 06/18/17 19:06 Hx Obtained From: Patient Hx Last Menstrual Period: 06/01/17 Onset/Duration: Sudden Onset, Lasting Hours, Still Present Timing: Constant Severity Initially: Moderate Severity Currently: Severe Pain Intensity: 10 Pain Scale Used: 0-10 Numeric Character: Sharp Aggravating Factor(s): Movement Alleviating Factor(s): Nothing Associated Signs And Symptoms: Positive: Back Pain. Negative: Fever, Nausea - Allergies/Home Medications Allergies/Adverse Reactions: Allergies Allergy/AdvReac Type Severity Reaction Status Date / Time No Known Allergies Allergy Verified 06/18/17 17:26 PMH/Surg Hx/FS Hx/Imm Hx GI/ History: Kidney Stones Other History Of: Negative For: Anticoagulant Therapy - Surgical History Surgical History: Yes Surgery Procedure, Year, and Place: tubes in ears as a child, CSECTION x2 / RENAL STENT PALCEMENT/REMOVAL - Family History Known Family History: Positive: Cardiac Disease, Hypertension, Diabetes, Other - Ovarian cysts - Social History Alcohol Use: Occasionally Alcohol Amount: 2-3/week Substance Use Type: None Smoking Status (MU): Never Smoked Tobacco Have You Smoked in the Last Year: No Household Exposure Type: Cigarettes - Immunization History Most Recent Influenza Vaccination: unknown Most Recent Tetanus Shot: 05/30/16 Most Recent Pneumonia Vaccination: NA Review of Systems Constitutional: Negative Respiratory: Negative Cardiovascular: Negative Gastrointestinal: Negative Genitourinary: Other - RIGHT FLANK PAIN All Other Systems Reviewed And Are Negative: Yes Physical Exam Triage Information Reviewed: Yes Appearance: Well-Nourished, Pain Distress - MOD Vital Signs: Initial Vital Signs Temp 98 F 06/18/17 17:27 Pulse 95 06/18/17 17:27 Resp 22 06/18/17 17:27 BP 126/71 06/18/17 17:27 Pulse Ox 100 06/18/17 17:27 Vital Signs Reviewed: Yes Eyes: Positive: Conjunctiva Clear ENT: Positive: Hearing grossly normal Neck: Positive: Supple Respiratory: Positive: No respiratory distress, No accessory muscle use Cardiovascular: Positive: Pulses Normal Abdomen Description: Positive: Nontender, Soft, CVA Tenderness (R). Negative: CVA Tenderness (L), Distended, Guarding Musculoskeletal: Positive: No Edema Neurological: Positive: Alert Psychological: Positive: Age Appropriate Behavior Skin: Negative: rashes Diagnostics - Laboratory Diagnostic Studies Completed/Ordered: URINE DIP UNREMARKABLE - Radiology CT ABD/PELVIS W/O CONTRAST Xray Interpretation: Positive (See Comments) - No CT evidence of nephrolithiasis. Normal appendix. 3.4 cm right adnexal cyst. Suggest follow-up ultrasonography. Radiology Interpretation Completed By: Radiologist Complaint Female Dx - Differential Dx/Diagnosis Provider Diagnoses: RIGHT FLANK PAIN Discharge - Discharge Plan Condition: Stable Disposition: HOME Prescriptions: HYDROcodone/ACETAMIN 5-325 MG* [[place] 5-325 TAB*] 1 tab PO Q6H PRN #20 tab MDD 4 PRN Reason: Pain Ondansetron ODT TAB* [Zofran Odt TAB*] 4 mg PO Q6H PRN #20 tab.odt PRN Reason: Nausea/Vomiting Patient Education Materials: Flank Pain (ED) Referrals: Godwin Cheney MD [Primary Care Provider] - If Needed Additional Instructions: CT SCAN NEGATIVE FOR KIDNEY STONE BUT DOES SHOW A RIGHT OVARIAN CYST. FOLLOW-UP WITH [facility]ED [facility] FOR ULTRASOUND MONITORING PER RADIOLOGY RECOMMENDATION. HYDROCODONE/APAP AND ZOFRAN FOR SYMPTOM CONTROL. KEEP OUT OF REACH OF KIDS. STAY WELL HYDRATED AND FOLLOW-UP WITH YOUR UROLOGIST IF YOUR SYMPTOMS DO NOT IMPROVE. GO TO THE ER WITHOUT FAIL IF YOU DEVELOP FEVER, BLOODY URINE, WORSENING PAIN, NAUSEA OR ANY OTHER CONCERNING SYMPTOMS.
--- NOTE | 2017-06-18 19:53 | RAD ---
INDICATION: Right flank pain COMPARISON: CT May 04, 2017 TECHNIQUE: Noncontrast axial source images were acquired from the level hemidiaphragms to the symphysis pubis as part of CT imaging for renal stone. Lung bases: The lung bases are clear. Liver: The liver is enlarged with findings of hepatic steatosis. Noncontrast imaging shows no evidence of a hepatic mass or ductal dilatation. Gallbladder: There are no calcified gallstones. There is no evidence of wall thickening or pericholecystic fluid.. Spleen: The spleen is normal in size. The noncontrast CT appearance is normal. Pancreas: Noncontrast imaging shows no pancreatic mass or ductal dilitation. Adrenal glands: No masses are identified. 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 Noncontrast imaging shows no evidence of a renal mass. The bladder is unremarkable.. Adenopathy: There is no evidence of intraperitoneal or retroperitoneal adenopathy. Evaluation is limited without oral contrast. Fluid collections: There are no free or localized fluid collections. Vessels: The aorta and iliac vessels are normal in caliber. There are no significant atherosclerotic changes. The IVC appears normal Pelvic organs: The uterus and left adnexa are normal. There is a 3.4 cm right adnexal cyst. Suggest follow-up ultrasonography GI tract: Evaluation of the bowel is limited without oral contrast. The stomach, small bowel, and lower GI tract appear grossly normal. There are no obstructive findings. The appendix is visualized and appears normal. Soft tissues: There is a tiny fat-containing periumbilical hernia. Osseous structures: There are no acute osseous findings. IMPRESSION: No CT evidence of nephrolithiasis. Normal appendix. 3.4 cm right adnexal cyst. Suggest follow-up ultrasonography.
[2017-06-18 19:54] VITALS: BP 130/88
== END 2017-06-18 20:27 | disposition home or self-care (01) ==
LOC: UCEAST 17:16
DX: R10.9 Unspecified abdominal pain (principal)
CPT/HCPCS: 74176; 81003; 99212; G0463

== ENCOUNTER 2017-07-05 11:17 | Emergency (ER) | payer OTHER ==
[2017-07-05] MEDS ORDERED: Ketorolac INJ* 30 MG/ML 1 ML VIAL IV ONE (11:45)
[2017-07-05] MEDS ORDERED: NS 0.9% 1000 ML* 1,000 ML IV ONE (11:45)
[2017-07-05 11:59] LABS: Urine Appearance Clear; Urine Blood Negative (Negative); Urine Color Yellow; Urine Ketones Negative (Negative); Urine Protein Negative (Negative); Urine Specific Gravity 1.023 (1.010-1.030); Urine Urobilinogen Negative (Negative)
[2017-07-05 12:26] LABS: ABS Basophils 0.1 10^3/ul (0-0.2); ABS Eosinophils 0.1 10^3/ul (0-0.6); ABS Lymphocytes 3.4 10^3/ul (1.0-4.8); ABS Monocytes 0.8 10^3/ul (0-0.8); ABS Neutrophils 7.1 10^3/ul (1.5-7.7); ABS Nucleated RBC 0 10^3/ul; Eosinophil % 0.4 % (0-6); Hematocrit 38 % (35-47); Hemoglobin 12.6 g/dl (12.0-16.0); Lymphocyte % 29.7 % (25-47); Mean Corpuscular HGB Conc 33 g/dl (31-36); Mean Corpuscular Hemoglobin 28 pg (27-31); Mean Corpuscular Volume 84 fL (80-97); Mean Platelet Volume 9 um3 (7.4-10.4); Nucleated Red Blood Cells % 0; Platelet Count 339 10^3/ul (150-450); Red Blood Count 4.49 10^6/ul (4.0-5.4); Red Cell Distribution Width 14 % (10.5-15); White Blood Count 11.4 10^3/ul (3.5-10.8)
[2017-07-05 12:46] LABS: EGFR Non-African American 95.8 (>60)
--- NOTE | 2017-07-05 13:22 | RAD ---
CLINICAL HISTORY: Right flank pain, urinary frequency and urgency COMPARISON: June 18, 2017 TECHNIQUE: Multiple contiguous axial CT scans were obtained of the abdomen and pelvis, without intravenous contrast enhancement. Coronal and sagittal multiplanar reformations are submitted for review. Oral contrast was not administered. FINDINGS: The study is limited by the lack of intravenous contrast. This limits evaluation of the solid organs and vasculature. LUNG BASES: The lung bases are clear. LIVER: The liver is normal in shape, size, contour, and attenuation. BILE DUCTS: There is no intrahepatic or extrahepatic biliary dilatation. GALLBLADDER: The gallbladder is normal, without pericholecystic inflammatory change. PANCREAS: The pancreas is normal, without mass or ductal dilatation. SPLEEN: Normal in size and appearance. UPPER GI TRACT: Evaluation of the gastrointestinal tract is limited by incomplete gastric distention. The upper GI tract is unremarkable. SMALL BOWEL AND MESENTERY: The small bowel is normal in contour, course, and caliber. There is no obstruction or dilatation. COLON: The colon is normal in contour, course, caliber. There is no pericolonic inflammatory change. There is a tubular, vermiform, hollow viscus that is blind ending, and originates from the cecum, consistent with a normal appendix. There is no periappendiceal inflammatory change. This is best seen on coronal images 47 through 51. ADRENALS: Normal bilaterally. KIDNEYS: The kidneys are normal in shape, size, and contour. There is horizontal deviation of the axis of the right kidney.. There is no hydronephrosis or nephrolithiasis. BLADDER: The bladder is smooth in contour. PELVIC ORGANS: The uterus and adnexa are grossly normal for technique. AORTA: The aorta is normal. IVC: Unremarkable LYMPH NODES: There is no lymphadenopathy by size criteria. ABDOMINAL WALL: There is a small fat-containing umbilical hernia. BONES AND SOFT TISSUES: Unremarkable OTHER: None IMPRESSION: NO HYDRONEPHROSIS OR NEPHROLITHIASIS. NO ACUTE NONCONTRAST CT PATHOLOGY OF THE VISUALIZED ABDOMEN AND PELVIS.
--- NOTE | 2017-07-05 14:15 | ED ---
Teresa Kemp Gabriel, scribed for Presley Perez MD on 07/05/17 at 1144 . GI/ HPI - HPI Summary HPI Summary: This patient is a 31 year old F presenting to [facility] with a chief complaint of right flank pain since 2 weeks ago. The patient rates the pain 9/10 in severity. Patient reports increased frequency, increased urgency, and n/v. Patient denies fever and chills. Pt was seen in ED 2 weeks ago for the same symptoms got a CT which showed nothing significant. Hx of kidney stones. LNMP was last week. - History of Current Complaint Chief Complaint: EDFlankPain Time Seen by Provider: 07/05/17 11:28 Stated Complaint: FLANK PAIN Hx Obtained From: Patient Hx Last Menstrual Period: 06/01/17 Onset/Duration: Still Present Timing: Constant, Lasting Weeks - 2 Severity: Severe Current Severity: Severe Pain Intensity: 9 Location of Pain: Flank - r Associated Signs and Symptoms: Positive: Negative - fever and chills, Other: - increased frequency, increased urgent, and n/v. - Additional Pertinent History Primary Care Physician: [id number] - Allergy/Home Medications Allergies/Adverse Reactions: Allergies Allergy/AdvReac Type Severity Reaction Status Date / Time No Known Allergies Allergy Verified 07/05/17 11:22 PMH/Surg Hx/FS Hx/Imm Hx Endocrine/Hematology History: Denies: Hx Anticoagulant Therapy, Hx Diabetes, Hx Thyroid Disease Cardiovascular History: Denies: Hx Aneurysm, Hx Hypertension Respiratory History: Denies: Hx Asthma, Hx Chronic Obstructive Pulmonary Disease (COPD) GI History: Denies: Hx Cirrhosis, Hx Crohn's Disease, Hx Diverticulosis, Hx Gall Bladder Disease, Hx Gastroesophageal Reflux Disease, Hx Gastrointestinal Bleed, Hx Hiatal Hernia, Hx Irritable Bowel, Hx Ulcer History: Reports: Hx Kidney Stones - RIGHT, Other Problems/Disorders - hx of kidney stones with stent/stent removed 06/12 Musculoskeletal History: Denies: Hx Arthritis, Hx Back Problems, Hx Fibromyalgia, Hx Orthopedic Injury , Hx Osteoporosis Psychiatric History: Reports: Hx Anxiety, Hx Depression - Surgical History Surgery Procedure, Year, and Place: tubes in ears as a child, CSECTION x2 / RENAL STENT PALCEMENT/REMOVAL - Immunization History Date of Tetanus Vaccine: unknown Date of Influenza Vaccine: NO Infectious Disease History: No Infectious Disease History: Denies: Hx Clostridium Difficile, Hx Hepatitis, Hx Human Immunodeficiency Virus (HIV), Hx of Known/Suspected MRSA, Hx Shingles, Hx Tuberculosis, Hx Known/ Suspected VRE, Hx Known/Suspected VRSA, History Other Infectious Disease, Traveled Outside the [place] in Last 30 Days - Family History Known Family History: Positive: Cardiac Disease, Hypertension, Diabetes, Other - Ovarian cysts - Social History Alcohol Use: Occasionally Alcohol Amount: 2-3/week Hx Substance Use: No Substance Use Type: Reports: None Hx Tobacco Use: No Smoking Status (MU): Never Smoked Tobacco Have You Smoked in the Last Year: No Review of Systems Negative: Fever, Chills Positive: Vomiting, Nausea Positive: frequency, urgency Positive: Other - flank pain All Other Systems Reviewed And Are Negative: Yes Physical Exam - Summary Physical Exam Summary: VITAL SIGNS: Reviewed. GENERAL: Patient is an obese female who is lying comfortable in the stretcher. Patient is not in any acute respiratory distress. HEAD AND FACE: No signs of trauma. No ecchymosis, hematomas or skull depressions. No sinus tenderness. EYES: PERRLA, EOMI x 2, No injected conjunctiva, no nystagmus. EARS: Hearing grossly intact. Ear canals and tympanic membranes are within normal limits. MOUTH: Oropharynx within normal limits. NECK: Supple, trachea is midline, no adenopathy, no JVD, no carotid bruit, no c- spine tenderness, neck with full ROM. CHEST: Symmetric, no tenderness at palpation LUNGS: Clear to auscultation bilaterally. No wheezing or crackles. CVS: Regular rate and rhythm, S1 and S2 present, no murmurs or gallops appreciated. ABDOMEN: Soft, non-tender. No signs of distention. No rebound no guarding, and no masses palpated. Bowel sounds are normal. Back: right sided CVA tenderness EXTREMITIES: FROM in all major joints, no edema, no cyanosis or clubbing. NEURO: Alert and oriented x 3. No acute neurological deficits. Speech is normal and follows commands. SKIN: Dry and warm Triage Information Reviewed: Yes Vital Signs On Initial Exam: Initial Vitals Temp Pulse Resp BP Pulse Ox 98.2 F 97 14 123/73 98 07/05/17 11:18 07/05/17 11:18 07/05/17 11:18 07/05/17 11:18 07/05/17 11:18 Vital Signs Reviewed: Yes Diagnostics - Vital Signs Vital Signs Temp Pulse Resp BP Pulse Ox 07/05/17 11:18 98.2 F 97 14 123/73 98 - Laboratory Lab Results: Lab Results 07/05/17 07/05/17 07/05/17 Range/Units 11:44 12:16 12:16 WBC 11.4 H (3.5-10.8) 10^3/ul RBC 4.49 (4.0-5.4) 10^6/ul Hgb 12.6 (12.0-16.0) g/dl Hct 38 (35-47) % MCV 84 (80-97) fL MCH 28 (27-31) pg MCHC 33 (31-36) g/dl RDW 14 (10.5-15) % Plt Count 339 (150-450) 10^3/ul MPV 9 (7.4-10.4) um3 Neut % (Auto) 62.5 (38-83) % Lymph % (Auto) 29.7 (25-47) % [place] % (Auto) 6.8 (0-7) % Eos % (Auto) 0.4 (0-6) % Baso % (Auto) 0.6 (0-2) % Absolute Neuts (auto) 7.1 (1.5-7.7) 10^3/ul Absolute Lymphs (auto) 3.4 (1.0-4.8) 10^3/ul Absolute Monos (auto) 0.8 (0-0.8) 10^3/ul Absolute Eos (auto) 0.1 (0-0.6) 10^3/ul Absolute Basos (auto) 0.1 (0-0.2) 10^3/ul Absolute Nucleated RBC 0 10^3/ul Nucleated RBC % 0 Sodium 136 (133-145) mmol/L Potassium 3.9 (3.5-5.0) mmol/L Chloride 104 (101-111) mmol/L Carbon Dioxide 24 (22-32) mmol/L Anion Gap 8 (2-11) mmol/L BUN 12 (6-24) mg/dL Creatinine 0.72 (0.51-0.95) mg/dL Est GFR ( Amer) 123.2 (>60) Est GFR (Non-Af Amer) 95.8 (>60) BUN/Creatinine Ratio 16.7 (8-20) Glucose 97 (70-100) mg/dL Calcium 9.4 (8.6-10.3) mg/dL Total Bilirubin 0.40 (0.2-1.0) mg/dL AST 13 (13-39) U/L ALT 11 (7-52) U/L Alkaline Phosphatase 59 (34-104) U/L C-Reactive Protein 9.50 H (< 5.00) mg/L Total Protein 7.6 (6.4-8.9) g/dL Albumin 4.0 (3.2-5.2) g/dL Globulin 3.6 (2-4) g/dL Albumin/Globulin Ratio 1.1 (1-3) Lipase 16 (11.0-82.0) U/L Beta HCG, Quant < 0.60 mIU/mL Urine Color Yellow Urine Appearance Clear Urine pH 6.0 (5-9) Ur Specific [place] 1.023 (1.010-1.030) Urine Protein Negative (Negative) Urine Ketones Negative (Negative) Urine Blood Negative (Negative) Urine Nitrate Negative (Negative) Urine Bilirubin Negative (Negative) Urine Urobilinogen Negative (Negative) Ur Leukocyte Esterase Negative (Negative) Urine Glucose Negative (Negative) Result Diagrams: 07/05/17 12:16 07/05/17 12:16 Lab Statement: Any lab studies that have been ordered have been reviewed, and results considered in the medical decision making process. - CT CT ABD/pelvis CT Interpretation Completed By: Radiologist - NO HYDRONEPHROSIS OR NEPHROLITHIASIS. NO ACUTE NONCONTRAST CT PATHOLOGY OF THE VISUALIZED ABDOMEN AND PELVIS. ED physician has reviewed this radiology report. GIGU Course/Dx - Course Assessment/Plan: I discussed all the findings and test results with the patient. Patient was instructed to return to the emergency room immediately if any of the symptoms return or worsens. Plan of care was discussed with the patient and understands and agrees. All questions were answered at patient satisfaction. There were no further complaints or concerns. Lung exam before discharge: CTA B/L. Good air exchange. No wheezing or crackles heard. CVS: S1 and S2 present. No murmurs appreciated. Patient is alert and oriented x 3. Patient is hemodynamically stable. Patient will be discharged home with follow up PCP in the next 2-[address] ABD/Pelvis reveals, per radiologist, NO HYDRONEPHROSIS OR NEPHROLITHIASIS. NO ACUTE NONCONTRAST CT PATHOLOGY OF THE VISUALIZED ABDOMEN AND PELVIS. Test results with no significant abnormalities. Bloodwork and UA obtained. In the ED course the patient was given Toradol and IV fluids. The patient is feeling better. I discussed all the findings and test results with the patient. Patient was instructed to return to the emergency room immediately if any of the symptoms return or worsens. Plan of care was discussed with the patient and understands and agrees. All questions were answered at patient satisfaction. There were no further complaints or concerns. The patient is hemodynamically stable and alert and orinetedx3. The patient was diagnosed with back pain. Patient will be discharged with prescription for flexeril, [place], and Naproxen and follow up from Dr. Cheney. The patient is agreeable with this plan. - Diagnoses Differential Diagnoses - Female: Renal Colic, Urinary Tract Infection, Ureteral Calculi, Vomiting Provider Diagnoses: Back pain Discharge - Discharge Plan Condition: Stable Disposition: HOME Prescriptions: Cyclobenzaprine TAB* [Flexeril 10 MG TAB*] 10 mg PO TID PRN #12 tab PRN Reason: Pain HYDROcodone/ACETAMIN 5-325 MG* [[place] 5-325 TAB*] 1 tab PO Q6H PRN #12 tab MDD 4 tabs PRN Reason: Pain Naproxen TAB* [Naprosyn 250 mg TAB*] 500 mg PO BID PRN #20 tab PRN Reason: Pain Patient Education Materials: Back Pain (ED) Referrals: Godwin Cheney MD [Primary Care Provider] - 3 Days Additional Instructions: RETURN TO EMERGENCY DEPARTMENT FOR ANY NEW OR WORSENING SYMPTOMS The documentation as recorded by the Teresa hawk Gabriel accurately reflects the service I personally performed and the decisions made by , Presley Perez MD.
[2017-07-05 14:45] VITALS: BP 113/49
== END 2017-07-05 14:30 | disposition home or self-care (01) ==
LOC: ED 11:17
DX: R10.9 Unspecified abdominal pain (principal); M54.9 Dorsalgia, unspecified; Z32.02 Encounter for pregnancy test, result negative
CPT/HCPCS: 36415; 74176; 80053; 81003; 83690; 84702; 85025; 86140; 96361; 96374; 99282; J1885

== ENCOUNTER 2017-07-31 16:11 | Emergency (ER) | payer OTHER ==
[2017-07-31] MEDS ORDERED: HYDROcodone/ACETAMIN 5-325 MG* 1 TAB PO ONE (17:00)
[2017-07-31 17:11] LABS: Urine Appearance Clear; Urine Blood Negative (Negative); Urine Color Yellow; Urine Ketones Trace (Negative); Urine Protein Negative (Negative); Urine Specific Gravity 1.026 (1.010-1.030); Urine Urobilinogen Negative (Negative)
--- NOTE | 2017-07-31 17:31 | ED ---
Back Pain - HPI Summary HPI Summary: Patient is a 31-year-old female who presents to emergency department for ongoing right flank pain times several months. Patient has a history of nephrolithiasis. Patient was seen in the ER last month for similar symptoms and had a negative CAT scan done at that time. Patient states her pain has been ongoing since. She admits to urinary hesitancy. Denies fever, chills, recent upper respiratory symptoms, vaginal discharge or bleeding, dysuria, recent injury. Pain is worse with movement. Patient states she's been following with her family doctor for this flank pain and was referred to urology but is waiting for an appointment. She also notes she recently had extensive STI testing performed which were negative. Last menstrual cycle was 3 weeks ago. Patient denies chance of . Symptoms are moderate in severity. Patient states she was to have a urine culture sent by her family doctor but states the sample was misplaced. She presents to the ER today for pain control as well as urinalysis. - History of Current Complaint Chief Complaint: EDFlankPain Stated Complaint: FLANK PAIN Time Seen by Provider: 07/31/17 16:32 Hx Obtained From: Patient Hx Last Menstrual Period: 06/01/17 Onset/Duration: Lasting Weeks Onset/Duration: Started Weeks Ago Timing: Constant Severity Initially: Severe Severity Currently: Severe Pain Intensity: 10 Character: Sharp, Aching Aggravating Symptom(s): Movement, Lifting, Bending Alleviating Symptom(s): Nothing - Allergies/Home Medications Allergies/Adverse Reactions: Allergies Allergy/AdvReac Type Severity Reaction Status Date / Time No Known Allergies Allergy Verified 07/31/17 16:16 Home Medications: Home Medications L.acidoph,Paracasei, B.lactis [Probiotic] 1 each PO BID 07/31/17 [History Confirmed 07/31/17] Norgestrel/Ethinyl Estrad TAB* [Ogestrel TAB 0.5/0.05*] 1 tab PO DAILY 07/31/17 [History Confirmed 07/31/17] PMH/Surg Hx/FS Hx/Imm Hx Endocrine/Hematology History: Denies: Hx Anticoagulant Therapy, Hx Diabetes, Hx Thyroid Disease Cardiovascular History: Denies: Hx Aneurysm, Hx Hypertension Respiratory History: Denies: Hx Asthma, Hx Chronic Obstructive Pulmonary Disease (COPD) GI History: Denies: Hx Cirrhosis, Hx Crohn's Disease, Hx Diverticulosis, Hx Gall Bladder Disease, Hx Gastroesophageal Reflux Disease, Hx Gastrointestinal Bleed, Hx Hiatal Hernia, Hx Irritable Bowel, Hx Ulcer History: Reports: Hx Kidney Stones - RIGHT, Other Problems/Disorders - hx of kidney stones with stent/stent removed 06/12 Musculoskeletal History: Denies: Hx Arthritis, Hx Back Problems, Hx Fibromyalgia, Hx Orthopedic Injury , Hx Osteoporosis Psychiatric History: Reports: Hx Anxiety, Hx Depression - Surgical History Surgery Procedure, Year, and Place: tubes in ears as a child, CSECTION x2 / RENAL STENT PALCEMENT/REMOVAL - Immunization History Date of Tetanus Vaccine: unknown Date of Influenza Vaccine: NO Infectious Disease History: No Infectious Disease History: Denies: Hx Clostridium Difficile, Hx Hepatitis, Hx Human Immunodeficiency Virus (HIV), Hx of Known/Suspected MRSA, Hx Shingles, Hx Tuberculosis, Hx Known/ Suspected VRE, Hx Known/Suspected VRSA, History Other Infectious Disease, Traveled Outside the in Last 30 Days - Family History Known Family History: Positive: None, Cardiac Disease, Hypertension, Diabetes, Other - Ovarian cysts - Social History Occupation: Employed Full-time Lives: With Family Alcohol Use: Occasionally Alcohol Amount: 2-3/week Hx Substance Use: No Substance Use Type: Reports: None Hx Tobacco Use: No Smoking Status (MU): Never Smoked Tobacco Have You Smoked in the Last Year: No Review of Systems - ROS Summary Review of Systems Summary: Constitutional: No fever, chills. Head/Face: No trauma. Neck: No swelling or pain. Eyes: No visual disturbances. ENT: No ear pain. No nasal discharge or bleeding. No throat pain/swelling. Heart: No chest pain. Lungs: No cough. No SOB. Abdomen: No pain. No nausea, vomiting or diarrhea. Back: Right flank pain MS: No truama. No leg swelling or pain. Skin: No rash. : Urinary urgency Neuro: No change in mental status. No umbness, tingling or weakness. All other systems reviewed and are negative. Constitutional: Negative Eyes: Negative ENT: Negative Cardiovascular: Negative Negative: Chest Pain Negative: Shortness Of Breath, Cough Negative: Abdominal Pain, Vomiting, Diarrhea, Nausea Positive: urgency Neurological: Negative Psychological: Normal All Other Systems Reviewed And Are Negative: Yes Physical Exam - Summary Physical Exam Summary: Appearance: Pt. is awake and alert. Patient lying in bed in no acute distress. Talking on cellphone when I walked in to the room. Skin: Warm, dry. Head/Face: No trauma. Normocephalic. Eyes: PERRLA. Neck: Full ROM. ENT: Nose without drainage. Oropharynx patent. Heart: Heart is a regular rate and rhythm. Lungs: Lungs are clear to auscultation bilaterally without adventitious sounds. Abdomen: Nondistended. Obese. Abdomen is soft throughout with mild suprapubic tenderness on palpation. No rebound tenderness or guarding. No right lower quadrant pain. Back. Right CVA tenderness on percussion. MS/Extremity: Moving all 4 extremities. Neuro: Awake, alert. Cranial nerves II through XII grossly intact. Psych: Normal affect. Triage Information Reviewed: Yes Vital Signs On Initial Exam: Initial Vitals Temp Pulse Resp BP Pulse Ox 97.8 F 90 16 134/79 100 07/31/17 16:15 07/31/17 16:15 07/31/17 16:15 07/31/17 16:15 07/31/17 16:15 Vital Signs Reviewed: Yes Appearance: Positive: Well-Appearing Skin: Positive: Warm, Dry Head/Face: Positive: Normal Head/Face Inspection Eyes: Positive: Normal Respiratory/Lung Sounds: Positive: Clear to Auscultation, Breath Sounds Present Cardiovascular: Positive: Normal, RRR Abdomen Description: Positive: Soft, CVA Tenderness (R), Other: - Suprapubic tenderness. Negative: Distended, Guarding, McBurney's Point Tenderness Diagnostics - Vital Signs Vital Signs Temp Pulse Resp BP Pulse Ox 07/31/17 17:04 95 98 07/31/17 17:03 116/67 07/31/17 16:15 97.8 F 90 16 134/79 100 - Laboratory Lab Results: Lab Results 07/31/17 Range/Units 17:03 Urine Color Yellow Urine Appearance Clear Urine pH 5.0 (5-9) Ur Specific [place] 1.026 (1.010-1.030) Urine Protein Negative (Negative) Urine Ketones Trace A (Negative) Urine Blood Negative (Negative) Urine Nitrate Negative (Negative) Urine Bilirubin Negative (Negative) Urine Urobilinogen Negative (Negative) Ur Leukocyte Esterase Negative (Negative) Urine Glucose Negative (Negative) Lab Statement: Any lab studies that have been ordered have been reviewed, and results considered in the medical decision making process. Back Pain Course/Dx - Course Course Of Treatment: Pt. presenting to the ER for ongoing right flank pain. Pt. is afebrile with stable vital signs. U/A was ordered to evaluate for infection and or RBCs. Pt. is requesting a renal u/s, she is concerned she may have kidney swelling. She was given 2 lortab for pain. U/A is negative for RBCs or evidence of infection. Pt. will be signed out to Zoe Bowden PA-C, for u/s results. If u/s is negative plan on pain control and urology f.u. - Diagnoses Provider Diagnoses: Flank pain Discharge - Sign-Out/Discharge Documenting (check all that apply): Sign-Out Patient Signing out patient TO: Zoe Bowden - Discharge Plan Condition: Good Referrals: Godwin Cheney MD [Primary Care Provider] - - Billing Disposition and Condition Condition: GOOD
--- NOTE | 2017-07-31 18:18 | RAD ---
INDICATION: Right flank pain COMPARISON: CT July 05, 2017 TECHNIQUE: Longitudinal and transverse scans of the kidneys were obtained. FINDINGS: Right kidney: The right kidney is normal in size and echogenicity. No renal masses, calculi, or hydronephrosis is seen. The right kidney measures 10.3 x 5.9 x 5.0 cm. Other: None IMPRESSION: NORMAL STUDY.
[2017-07-31] MEDS ORDERED: Diazepam TAB(*) 5 MG PO ONE (19:08)
[2017-07-31 20:00] VITALS: BP 141/67
--- NOTE | 2017-08-02 15:25 | PN ---
Progress Note - Progress Note Date of Service: 07/31/17 Note: Patient was called and given the results of her urine culture Urine culture grew Proteus Mirabella's She still states she has symptoms of urinary frequency and burning Ciprofloxacin known to be sensitive to Proteus species Ciprofloxacin 500 mg twice daily 5 days is given as her antibiotic Will change this medication if needed She has also asked for Flagyl and Diflucan as she continues to get BV and yeast infections after antibiotic usage
== END 2017-07-31 20:00 | disposition home or self-care (01) ==
LOC: ED 16:11
DX: R10.9 Unspecified abdominal pain (principal); N39.0 Urinary tract infection, site not specified; B96.4 Proteus (mirabilis) (morganii) as the cause of diseases classified elsewhere; F32.9 Major depressive disorder, single episode, unspecified; Z87.442 Personal history of urinary calculi; K21.9 Gastro-esophageal reflux disease without esophagitis; K58.9 Irritable bowel syndrome, unspecified
CPT/HCPCS: 76775; 81003; 87077; 87086; 87186; 99283; A9270-GY

== ENCOUNTER 2017-12-22 18:20 | Emergency (ER) | payer OTHER ==
[2017-12-22] MEDS ORDERED: Ketorolac INJ* 30 MG/ML 1 ML VIAL IV PUSH ONE (20:00)
[2017-12-22] MEDS ORDERED: Dexamethasone IV* 4 MG/ML 1 ML (4 MG) IV SLOW PU ONE (20:01)
[2017-12-22 20:58] LABS: ABS Basophils 0.1 10^3/ul (0-0.2); ABS Eosinophils 0.2 10^3/ul (0-0.6); ABS Lymphocytes 3.6 10^3/ul (1.0-4.8); ABS Monocytes 0.7 10^3/ul (0-0.8); ABS Neutrophils 5.6 10^3/ul (1.5-7.7); ABS Nucleated RBC 0 10^3/ul; Eosinophil % 1.8 % (0-6); Hematocrit 35 % (35-47); Hemoglobin 11.7 g/dl (12.0-16.0); Lymphocyte % 35.4 % (25-47); Mean Corpuscular HGB Conc 33 g/dl (31-36); Mean Corpuscular Hemoglobin 29 pg (27-31); Mean Corpuscular Volume 86 fL (80-97); Mean Platelet Volume 8.8 um3 (7.4-10.4); Nucleated Red Blood Cells % 0.1; Platelet Count 283 10^3/ul (150-450); Red Blood Count 4.11 10^6/ul (4.00-5.40); Red Cell Distribution Width 13 % (10.5-15); White Blood Count 10.1 10^3/ul (3.5-10.8)
--- NOTE | 2017-12-22 21:05 | RAD ---
EXAM: US Retroperitoneal Limited, Renal CLINICAL HISTORY: 32 years old, female; Pain; Other: Flank pain; Additional info: Bilateral flank pain TECHNIQUE: Real-time ultrasound of the retroperitoneum (limited) with image documentation. COMPARISON: RENAL RT US RENAL LIMITED RIGHT 07/31/2017 5:54 PM FINDINGS: Right kidney: Right kidney measures 10.8 x 4.9 x 4.5 cm. No stones. No hydronephrosis. Left kidney: Left kidney measures 12.0 x 5.4 x 4.8 cm. No stones. No hydronephrosis. IMPRESSION: 1. Normal renal ultrasound.
[2017-12-22 21:15] LABS: EGFR Non-African American 93.6 (>60)
[2017-12-22 21:27] LABS: Urine Appearance Clear; Urine Blood Negative (Negative); Urine Color Straw; Urine Ketones Negative (Negative); Urine Protein Negative (Negative); Urine Specific Gravity 1.011 (1.010-1.030); Urine Urobilinogen Negative (Negative)
--- NOTE | 2017-12-22 21:45 | ED ---
GI/ HPI - HPI Summary HPI Summary: 32-year-old female presents with bilateral flank pain for the past month. She states that she has had this before. She has history of kidney infections and kidney stones. States that she did had some lower back pain that was sharp. States the pain is resolved. States the pain is intermittent. No saddle anesthesia or loss of bowel or bladder. No pain in legs. No weakness. She hasn't taking anything for her symptoms. She admits to occasional shortness breath. She's on control. She has family history of blood clots. She denies any chest pain. No nausea no vomiting. No diarrhea or constipation. no bowel pain. no fever. she is not a smoker. has no medical conditions. - History of Current Complaint Chief Complaint: EDFlankPain Time Seen by Provider: 12/22/17 19:44 Stated Complaint: LT AND RT FLANK PAIN Hx Last Menstrual Period: 06/01/17 Pain Intensity: 9 - Additional Pertinent History Primary Care Physician: [id number] - Allergy/Home Medications Allergies/Adverse Reactions: Allergies Allergy/AdvReac Type Severity Reaction Status Date / Time No Known Allergies Allergy Verified 12/22/17 18:44 PMH/Surg Hx/FS Hx/Imm Hx Endocrine/Hematology History: Denies: Hx Anticoagulant Therapy, Hx Diabetes, Hx Thyroid Disease Cardiovascular History: Denies: Hx Aneurysm, Hx Hypertension Respiratory History: Denies: Hx Asthma, Hx Chronic Obstructive Pulmonary Disease (COPD) GI History: Denies: Hx Cirrhosis, Hx Crohn's Disease, Hx Diverticulosis, Hx Gall Bladder Disease, Hx Gastroesophageal Reflux Disease, Hx Gastrointestinal Bleed, Hx Hiatal Hernia, Hx Irritable Bowel, Hx Ulcer History: Reports: Hx Kidney Stones - RIGHT, Other Problems/Disorders - hx of kidney stones with stent/stent removed 06/12 Musculoskeletal History: Denies: Hx Arthritis, Hx Back Problems, Hx Fibromyalgia, Hx Orthopedic Injury , Hx Osteoporosis Psychiatric History: Reports: Hx Anxiety, Hx Depression - Surgical History Surgery Procedure, Year, and Place: tubes in ears as a child, CSECTION x2 / RENAL STENT PALCEMENT/REMOVAL - Immunization History Date of Tetanus Vaccine: unknown Date of Influenza Vaccine: NO Infectious Disease History: No Infectious Disease History: Denies: Hx Clostridium Difficile, Hx Hepatitis, Hx Human Immunodeficiency Virus (HIV), Hx of Known/Suspected MRSA, Hx Shingles, Hx Tuberculosis, Hx Known/ Suspected VRE, Hx Known/Suspected VRSA, History Other Infectious Disease, Traveled Outside the [place] in Last 30 Days - Family History Known Family History: Positive: None, Cardiac Disease, Hypertension, Diabetes, Other - Ovarian cysts - Social History Alcohol Use: Occasionally Alcohol Amount: 2-3/week Hx Substance Use: No Substance Use Type: Reports: None Hx Tobacco Use: No Smoking Status (MU): Never Smoked Tobacco Have You Smoked in the Last Year: No Review of Systems Negative: Fever Negative: Chest Pain Negative: Shortness Of Breath Negative: Abdominal Pain Positive: flank pain All Other Systems Reviewed And Are Negative: Yes Physical Exam Triage Information Reviewed: Yes Vital Signs On Initial Exam: Initial Vitals Temp Pulse Resp BP Pulse Ox 98.5 F 88 20 111/88 100 12/22/17 18:41 12/22/17 18:41 12/22/17 18:41 12/22/17 18:41 12/22/17 18:41 Vital Signs Reviewed: Yes Appearance: Positive: Well-Appearing Skin: Positive: Warm, Dry Head/Face: Positive: Normal Head/Face Inspection Eyes: Positive: Normal, Conjunctiva Clear ENT: Positive: Pharynx normal Respiratory/Lung Sounds: Positive: Clear to Auscultation, Breath Sounds Present Cardiovascular: Positive: Normal, RRR Abdomen Description: Positive: Nontender, Soft, CVA Tenderness (R), CVA Tenderness (L) Bowel Sounds: Positive: Present Musculoskeletal: Positive: Normal, Strength/ROM Intact - lower leg, Other - good pulses, neg SLR, sensation grossly intact Neurological: Positive: Normal Psychiatric: Positive: Normal Diagnostics - Vital Signs Vital Signs Temp Pulse Resp BP Pulse Ox 12/22/17 20:58 70 100 12/22/17 20:56 72 139/92 99 12/22/17 18:41 98.5 F 88 20 111/88 100 - Laboratory Lab Results: Lab Results 12/22/17 12/22/17 12/22/17 Range/Units 20:49 20:49 20:49 WBC 10.1 (3.5-10.8) 10^3/ul RBC 4.11 (4.00-5.40) 10^6/ul Hgb 11.7 L (12.0-16.0) g/dl Hct 35 (35-47) % MCV 86 (80-97) fL MCH 29 (27-31) pg MCHC 33 (31-36) g/dl RDW 13 (10.5-15) % Plt Count 283 (150-450) 10^3/ul MPV 8.8 (7.4-10.4) um3 Neut % (Auto) 54.7 (38-83) % Lymph % (Auto) 35.4 (25-47) % [place] % (Auto) 6.9 (0-7) % Eos % (Auto) 1.8 (0-6) % Baso % (Auto) 1.2 (0-2) % Absolute Neuts (auto) 5.6 (1.5-7.7) 10^3/ul Absolute Lymphs (auto) 3.6 (1.0-4.8) 10^3/ul Absolute Monos (auto) 0.7 (0-0.8) 10^3/ul Absolute Eos (auto) 0.2 (0-0.6) 10^3/ul Absolute Basos (auto) 0.1 (0-0.2) 10^3/ul Absolute Nucleated RBC 0 10^3/ul Nucleated RBC % 0.1 D-Dimer, Quantitative 271 H (Less Than 230) ng/mL Sodium 138 (135-145) mmol/L Potassium 3.7 (3.5-5.0) mmol/L Chloride 106 (101-111) mmol/L Carbon Dioxide 25 (22-32) mmol/L Anion Gap 7 (2-11) mmol/L BUN 14 (6-24) mg/dL Creatinine 0.73 (0.51-0.95) mg/dL Est GFR ( Amer) 113.3 (>60) Est GFR (Non-Af Amer) 93.6 (>60) BUN/Creatinine Ratio 19.2 (8-20) Glucose 96 (70-100) mg/dL Calcium 8.9 (8.6-10.3) mg/dL Total Bilirubin 0.30 (0.2-1.0) mg/dL AST 12 L (13-39) U/L ALT 13 (7-52) U/L Alkaline Phosphatase 56 (34-104) U/L C-Reactive Protein 10.86 H (<8.01) mg/L Total Protein 6.9 (6.4-8.9) g/dL Albumin 3.7 (3.2-5.2) g/dL Globulin 3.2 (2-4) g/dL Albumin/Globulin Ratio 1.2 (1-3) Beta HCG, Quant < 0.60 mIU/mL Urine Color Urine Appearance Urine pH (5-9) Ur Specific [place] (1.010-1.030) Urine Protein (Negative) Urine Ketones (Negative) Urine Blood (Negative) Urine Nitrate (Negative) Urine Bilirubin (Negative) Urine Urobilinogen (Negative) Ur Leukocyte Esterase (Negative) Urine Glucose (Negative) 12/22/17 Range/Units 20:56 WBC (3.5-10.8) 10^3/ul RBC (4.00-5.40) 10^6/ul Hgb (12.0-16.0) g/dl Hct (35-47) % MCV (80-97) fL MCH (27-31) pg MCHC (31-36) g/dl RDW (10.5-15) % Plt Count (150-450) 10^3/ul MPV (7.4-10.4) um3 Neut % (Auto) (38-83) % Lymph % (Auto) (25-47) % [place] % (Auto) (0-7) % Eos % (Auto) (0-6) % Baso % (Auto) (0-2) % Absolute Neuts (auto) (1.5-7.7) 10^3/ul Absolute Lymphs (auto) (1.0-4.8) 10^3/ul Absolute Monos (auto) (0-0.8) 10^3/ul Absolute Eos (auto) (0-0.6) 10^3/ul Absolute Basos (auto) (0-0.2) 10^3/ul Absolute Nucleated RBC 10^3/ul Nucleated RBC % D-Dimer, Quantitative (Less Than 230) ng/mL Sodium (135-145) mmol/L Potassium (3.5-5.0) mmol/L Chloride (101-111) mmol/L Carbon Dioxide (22-32) mmol/L Anion Gap (2-11) mmol/L BUN (6-24) mg/dL Creatinine (0.51-0.95) mg/dL Est GFR ( Amer) (>60) Est GFR (Non-Af Amer) (>60) BUN/Creatinine Ratio (8-20) Glucose (70-100) mg/dL Calcium (8.6-10.3) mg/dL Total Bilirubin (0.2-1.0) mg/dL AST (13-39) U/L ALT (7-52) U/L Alkaline Phosphatase (34-104) U/L C-Reactive Protein (<8.01) mg/L Total Protein (6.4-8.9) g/dL Albumin (3.2-5.2) g/dL Globulin (2-4) g/dL Albumin/Globulin Ratio (1-3) Beta HCG, Quant mIU/mL Urine Color Straw Urine Appearance Clear Urine pH 6.0 (5-9) Ur Specific [place] 1.011 (1.010-1.030) Urine Protein Negative (Negative) Urine Ketones Negative (Negative) Urine Blood Negative (Negative) Urine Nitrate Negative (Negative) Urine Bilirubin Negative (Negative) Urine Urobilinogen Negative (Negative) Ur Leukocyte Esterase Negative (Negative) Urine Glucose Negative (Negative) Result Diagrams: 12/22/17 20:49 12/22/17 20:49 Lab Statement: Any lab studies that have been ordered have been reviewed, and results considered in the medical decision making process. - CT cta CT Interpretation: No Acute Changes CT Interpretation Completed By: Radiologist - Ultrasound No standard instances Ultrasound Interpretation: No Acute Changes Ultrasound Interpretation Completed By: Radiologist MILA Course/Dx - Course Course Of Treatment: 32-year-old female presents with bilateral flank pain for the past month. She states that she has had this before. She has history of kidney infections and kidney stones. States that she did had some lower back pain that was sharp. States the pain is resolved. States the pain is intermittent. No saddle anesthesia or loss of bowel or bladder. No pain in legs. No weakness. She hasn't taking anything for her symptoms. She admits to occasional shortness breath. She's on control. She has family history of blood clots. She denies any chest pain. No nausea no vomiting. No diarrhea or constipation. no bowel pain. no fever. she is not a smoker. has no medical conditions. On exam tenderness bilateral flanks. Neurovascularly intact. Negative straight leg raise. Nontender abdomen. labs within normal limits. Urine no infection. Renal ultrasound normal. D-dimer postive so got CTA which negative. explained that is likely muscular. We'll give muscle relaxers give referral for PT. Patient understand and agrees with plan. - Diagnoses Differential Diagnoses - Female: Pyelonephritis, Urinary Tract Infection, Ureteral Calculi Provider Diagnoses: Flank pain Discharge - Sign-Out/Discharge Documenting (check all that apply): Patient Departure - Discharge Plan Condition: Good Disposition: HOME Prescriptions: Cyclobenzaprine TAB* [Flexeril 10 MG TAB*] 10 mg PO TID PRN #21 tab PRN Reason: Pain Patient Education Materials: Flank Pain (ED) Referrals: Godwin Cheney MD [Primary Care Provider] - [facility] [place] Physical therapy,PT [Medical Doctor] - Additional Instructions: Take muscle relaxers three times a day Use ibuprofen or Tylenol for pain every 6 hours ice/heat area, move as much as possible follow up with PT Follow up with primary within 5 days Return to ED if develop any new or worsening symptoms - Billing Disposition and Condition Condition: GOOD Disposition: Home
[2017-12-22] MEDS ORDERED: Iohexol 350* (CONTRAST) 500 ML MDV IV ONE (22:01)
[2017-12-22] MEDS ORDERED: Cyclobenzaprine TAB* 10 MG PO ONE (22:45)
--- NOTE | 2017-12-22 23:06 | RAD ---
EXAM: CT Angiography Chest With Intravenous Contrast CLINICAL HISTORY: 32 years old, female; Pain; Chest wall pain; Additional info: Flank pain, elevated d-dimer. Arrives C/O bilateral flank pain that she has had for appx 1 mo now. Pain across her low back. end TECHNIQUE: Axial computed tomographic angiography images of the chest with intravenous contrast using pulmonary embolism protocol. All CT scans at this facility use at least one of these dose optimization techniques: automated exposure control; mA and/or kV adjustment per patient size (includes targeted exams where dose is matched to clinical indication); or iterative reconstruction. MIP reconstructed images were created and reviewed. Coronal and sagittal reformatted images were created and reviewed. CONTRAST: 83 mL of [id number] administered intravenously. COMPARISON: OT - CXR CHEST PA LAT 2 S 06/16/2016 6:24 PM FINDINGS: Pulmonary arteries: Unremarkable. No pulmonary embolism. Aorta: No acute findings. No thoracic aortic aneurysm or dissection. Lungs: Unremarkable. No mass. No consolidation. Pleural space: Unremarkable. No significant effusion. No pneumothorax. Heart: Unremarkable. No cardiomegaly. No significant pericardial effusion. No evidence of RV dysfunction. Bones/joints: No acute fracture. No dislocation. Soft tissues: Unremarkable. Lymph nodes: Unremarkable. No enlarged lymph nodes. IMPRESSION: Normal chest CTA. No pulmonary embolism, aortic aneurysm, or dissection.
[2017-12-22 23:33] VITALS: BP 128/80
== END 2017-12-22 23:48 | disposition home or self-care (01) ==
LOC: ED 18:20
DX: R10.84 Generalized abdominal pain (principal)
CPT/HCPCS: 36415; 71275; 76775; 80053; 81003; 84702; 85025; 85379; 86140; 96374; 96375; 99283; A9270-GY; J1100; J1885; Q9967

== ENCOUNTER 2018-01-15 15:43 | Emergency (ER) | payer OTHER ==
[2018-01-15 15:55] VITALS: BP 119/71
--- NOTE | 2018-01-15 16:00 | UC ---
Throat Pain/Nasal Иван HPI - HPI Summary HPI Summary: A 32 y/o female presents to [facility] c/o sore throat and cough (for past 3 hours) reaching 9/10 in severity. According to the patient, on Friday (01/11/2018), she started experiencing sore throat that has been progressively getting worse since. She stated that it has been difficult to sleep has she is also experiencing diffuse body aches, hot/cold flashes. No measured fever. She states that she has a runny nose and is "stuffed up" that makes it hard to breathe. She noted that along with the sore throat, all day during work ( started at 1000), the sore throat has been getting worse, with nasal congestion , headache (pressure), her eyes are "stinging". She denies anyone around her that has strep. Pt reports ear fullness. a co-worker was complaining of sore throat on Friday (01/20/2018), but she has been getting better. It was noted that her teeth does hurt, but she stated that she does not think it is associated with her symptoms as she grinds teeth. She did not take any decongestant, but took extra-strength Tylenol 2 hours before arrival to [facility]. No other OTC counter medications. Pt does get yeast infection with Abx. Medications reviewed - History of Current Complaint Chief Complaint: UCRespiratory Stated Complaint: SORE THROAT Time Seen by Provider: 01/15/18 15:53 Hx Obtained From: Patient Hx Last Menstrual Period: 3 months ago ?: No Onset/Duration: Sudden Onset, Lasting Days, Still Present Severity: Severe Pain Intensity: 9 Pain Scale Used: 0-10 Numeric Cough: Nonproductive Associated Signs & Symptoms: Positive: Sinus Discomfort, Nasal Discharge - Allergies/Home Medications Allergies/Adverse Reactions: Allergies Allergy/AdvReac Type Severity Reaction Status Date / Time No Known Allergies Allergy Verified 01/15/18 15:55 Home Medications: Home Medications Acetaminophen TAB* [Tylenol TAB*] 1,000 mg PO ONCE 01/15/18 [History Confirmed 01/15/18] PMH/Surg Hx/FS Hx/Imm Hx - Additional Past Medical History Additional PMH: POSITIVE: Caesarean section NEGATIVE: Lung disease Previously Healthy: Yes Respiratory History: Asthma - NEGATIVE Other History Of: Negative For: Anticoagulant Therapy - Surgical History Surgical History: Yes Surgery Procedure, Year, and Place: tubes in ears as a child, CSECTION x2 / RENAL STENT PALCEMENT/REMOVAL - Family History Known Family History: Positive: None, Cardiac Disease, Hypertension, Diabetes, Other - Ovarian cysts - Social History Occupation: Employed Full-time Alcohol Use: Weekly - 1-2 per week Alcohol Amount: 2-3/week Substance Use Type: None Smoking Status (MU): Never Smoked Tobacco Have You Smoked in the Last Year: No Household Exposure Type: Cigarettes - Immunization History Most Recent Influenza Vaccination: unknown Most Recent Tetanus Shot: 05/30/16 Most Recent Pneumonia Vaccination: NA Review of Systems Constitutional: Chills - Hot/cold flashes Skin: Negative Eyes: Negative, Other - Eye pain ENT: Sore Throat, Ear Ache, Nasal Discharge - Runny nose Respiratory: Shortness Of Breath - Due to nasal congestion, Cough Cardiovascular: Negative Gastrointestinal: Negative Genitourinary: Negative Motor: Negative Neurovascular: Negative Musculoskeletal: Myalgia - Diffuse body aches/myalgia Neurological: Negative Psychological: Negative Is Patient Immunocompromised?: No All Other Systems Reviewed And Are Negative: Yes Physical Exam - Summary Physical Exam Summary: Vital Signs Reviewed: Yes A+Ox3, no distress Eyes: Conjunctiva Clear, NAOMY. EOM intact and full ENT: Hearing grossly normal, right TM + fluid, mild erythema, turbinates inflammed and boggy + PND + TTP max sinuses,, mmoist, uvula midline, no exudate , no erythema Neck: Positive: Supple no lymphadenopathy Respiratory: Positive: No respiratory distress, No accessory muscle use + CTA throughout no w/r Cardiovascular: RRR nl s1, s2 no m/r CBT <2 sec abd soft + BS nt/nd no guarding, no distension Musculoskeletal Exam: MARRUFO x 4 without difficulty Strength Intact, ROM Intact Neurological: Positive: Alert, + sensation throughout Psychological: Positive: Normal Response To Family Skin: Positive: no rash, no ecchymosis Triage Information Reviewed: Yes Vital Signs: Initial Vital Signs Temp 97.5 F 01/15/18 15:52 Pulse 66 01/15/18 15:52 Resp 18 01/15/18 15:52 BP 119/71 01/15/18 15:52 Pulse Ox 99 01/15/18 15:52 Vital Signs Reviewed: Yes Throat Pain/Nasal Course/Dx - Course Course Of Treatment: Patient presents with 4 days progressive sore throat and sinus congestion fatigue. Patient states she's been having hot and cold but no documented fever. Patient taken Tylenol without relief. 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 On exam patient with an early otitis media on the right as well as sinus congestion postnasal drip. Patient strep is negative. We'll prescribe amoxicillin as well as Flonase. Secretion precaution. Motrin Tylenol. Discussed with patient return precautions. Patient underwent. Patient comfortable with the plan. - Differential Dx/Diagnosis Provider Diagnoses: otitis media. pharyngitis Discharge - Sign-Out/Discharge Documenting (check all that apply): Patient Departure - DISCHARGE All imaging exams completed and their final reports reviewed: No Studies - Discharge Plan Condition: Stable Disposition: HOME Prescriptions: Amoxicillin PO (*) [Amoxicillin 500 MG CAP*] 500 mg PO Q12H #20 cap Fluconazole [Diflucan 150 MG (NF)] 150 mg PO ONCE PRN #1 tab PRN Reason: vaginal yeast infection Fluticasone NASAL SPRAY 50MCG* [Flonase NASAL SPRAY 50MCG*] 2 spray BOTH NARES DAILY #1 btl Patient Education Materials: Pharyngitis (ED), Ear Infection (ED) Referrals: Godwin Cheney MD [Primary Care Provider] - Additional Instructions: - Stay well hydrated. Drink plenty of non-alcoholic, non-caffinated beverages. - Alternate ibuprofen (Advil, Motrin) 600mg and Tylenol every 3 hours for pain or fever. Take with food. Do NOT take for more than 4-5 days. - These infections are spread by secretions - do NOT share eating or drinking utensils - clean items you share with other people such as cell phones, computer mouse, TV remote, computer tablets,etc. Once you have been antibiotics for 2 days, change your toothbrush and your pillowcase. - get plenty of restful sleep - humidify the air in the room where you sleep - boil water, run a hot steam shower, vaporizer, cups of water by heat register - okay to take over the counter decongestant and cough medication - use nasal spray as prescribed - you have been given a script for diflucan - okay to take if you develop a yeast infection from the antibiotics - contact your doctor or return with questions or concerns - Billing Disposition and Condition Condition: STABLE Disposition: Home - Attestation Statements Document Initiated by Scribe: Yes Documenting Scribe: Jayson Saxena Provider For Whom Scribe is Documenting (Include Credential): Albertina Martin MD Scribe Attestation: Jayson Kemp, scribed for Albertina Martin MD on 01/15/18 at 1727. Scribe Documentation Reviewed: Yes Provider Attestation: The documentation as recorded by the scribeJayson accurately reflects the service I personally performed and the decisions made by me, Albertina Martin MD
== END 2018-01-15 16:50 | disposition home or self-care (01) ==
LOC: UCEAST 15:43
DX: H66.91 Otitis media, unspecified, right ear (principal); J02.9 Acute pharyngitis, unspecified; R09.81 Nasal congestion
CPT/HCPCS: 81003; 87651; 99212; G0463

== ENCOUNTER 2018-01-27 16:26 | Emergency (ER) | payer OTHER ==
[2018-01-27 16:39] VITALS: BP 118/65
--- NOTE | 2018-01-27 17:38 | UC ---
Lower Extremity/Ankle HPI - HPI Summary HPI Summary: The patient is a 32-year-old female that presents here with a one-week history of severe left lateral foot pain and numbness. Denies any injury. Anus constant. 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 The pain is minimally increased with weightbearing. During this past week she has also had shooting burning pains down her left lateral calf. The first time it occurred she thought she had spilled boiling coffee down her leg. The pains last seconds and occur 5-10 times a day. Are not related to weightbearing. Denies any back pain. She has been taking Tylenol for the pain. - History of Current Complaint Chief Complaint: UCLowerExtremity Stated Complaint: LEG & FOOT PAIN,CRAMPING,NUMBNESS Time Seen by Provider: 01/27/18 16:42 Hx Obtained From: Patient Hx Last Menstrual Period: 10/26/17 Onset/Duration: Gradual Onset, Lasting Days Severity Initially: Mild Severity Currently: Severe Pain Intensity: 9 Pain Scale Used: 0-10 Numeric Aggravating Factor(s): Nothing Alleviating Factor(s): Nothing Able to Bear Weight: Yes - Allergies/Home Medications Allergies/Adverse Reactions: Allergies Allergy/AdvReac Type Severity Reaction Status Date / Time No Known Allergies Allergy Verified 01/27/18 16:39 PMH/Surg Hx/FS Hx/Imm Hx Previously Healthy: Yes GI/ History: Kidney Stones Other History Of: Negative For: Anticoagulant Therapy - Surgical History Surgical History: Yes Surgery Procedure, Year, and Place: tubes in ears as a child, CSECTION x2 / RENAL STENT PLACEMENT/REMOVAL - Family History Known Family History: Positive: Cardiac Disease, Hypertension, Diabetes, Other - Ovarian cysts - Social History Alcohol Use: Occasionally Alcohol Amount: 2-3/week Substance Use Type: None Smoking Status (MU): Never Smoked Tobacco Have You Smoked in the Last Year: No Household Exposure Type: Cigarettes - Immunization History Most Recent Influenza Vaccination: unknown Most Recent Tetanus Shot: 05/30/16 Most Recent Pneumonia Vaccination: NA Review of Systems Constitutional: Negative Skin: Negative Eyes: Negative ENT: Negative Respiratory: Negative Cardiovascular: Negative Gastrointestinal: Negative Genitourinary: Negative Motor: Negative Neurovascular: Negative Musculoskeletal: Arthralgia, Myalgia Neurological: Negative Psychological: Negative All Other Systems Reviewed And Are Negative: Yes Physical Exam Triage Information Reviewed: Yes Appearance: Well-Appearing, No Pain Distress, Well-Nourished Vital Signs: Initial Vital Signs Temp 98.7 F 01/27/18 16:33 Pulse 94 01/27/18 16:33 Resp 16 01/27/18 16:33 BP 118/65 01/27/18 16:33 Pulse Ox 100 01/27/18 16:33 Vital Signs Reviewed: Yes Eyes: Positive: Conjunctiva Clear ENT: Positive: Hearing grossly normal. Negative: Nasal congestion, Nasal drainage, Trismus, Muffled voice, Hoarse voice, Dental tenderness, Sinus tenderness Neck exam: Normal Neck: Positive: Supple, Nontender, No Lymphadenopathy Respiratory: Positive: Lungs clear, Normal breath sounds, No respiratory distress Cardiovascular: Positive: RRR, No Murmur, Pulses Normal Musculoskeletal: Positive: Strength Intact, ROM Intact, No Edema Neurological: Positive: Alert, Other: - strenght 5/5, sensory intact, dtrs brisk and equal, normal gait, (-) SLR Psychological Exam: Normal Diagnostics - Radiology No standard instances Xray Interpretation: No Acute Changes - left foot Radiology Interpretation Completed By: Radiologist Lower Extremity Course/Dx - Differential Dx/Diagnosis Provider Diagnoses: left foot and calf pain, suspect neuralgia Discharge - Sign-Out/Discharge Documenting (check all that apply): Patient Departure All imaging exams completed and their final reports reviewed: Yes - Discharge Plan Condition: Stable Disposition: HOME Prescriptions: Gabapentin CAP(*) [Neurontin 300 CAP(*)] 300 mg PO TID #50 cap Naproxen Sodium [Naproxen Sodium 500 MG TAB] 500 mg PO BID PRN #30 tab PRN Reason: Pain Patient Education Materials: Paresthesia (ED) Referrals: Yannick Pearson MD [Medical Doctor] - 2 Weeks Godwin Cheney MD [Primary Care Provider] - As Soon As Possible Additional Instructions: I think you have nerve pain you may need blood work and nerve conduction studies - Billing Disposition and Condition Condition: STABLE Disposition: Home
--- NOTE | 2018-01-27 17:45 | RAD ---
INDICATION: Left foot pain. TECHNIQUE: 3 views of the left foot were obtained. FINDINGS: There is lateral soft tissue swelling. The bones are normal alignment. No fracture is seen. Joint spaces appear maintained. IMPRESSION: LATERAL SOFT TISSUE SWELLING, NO FRACTURE IS SEEN.
== END 2018-01-27 18:05 | disposition home or self-care (01) ==
LOC: UCEAST 16:26
DX: M79.672 Pain in left foot (principal); M79.662 Pain in left lower leg; R20.0 Anesthesia of skin
CPT/HCPCS: 99212; G0463

== ENCOUNTER 2018-03-24 14:26 | Emergency (ER) | payer OTHER ==
[2018-03-24] MEDS ORDERED: predniSONE TAB* 20 MG PO ONE (16:48)
[2018-03-24] MEDS ORDERED: Diazepam TAB(*) 5 MG PO ONE ×2 (16:48→16:50)
--- NOTE | 2018-03-24 17:43 | ED ---
Back Pain - HPI Summary HPI Summary: Patient complains of right lower back pain radiating into right gluteus starting to p.m. yesterday. Patient is ambulatory, but Pain worse with walking. Denies trauma, specific event associated with onset of pain, radiation of pain down legs, urinary retention, incontinence, history of same. Patient has taken naproxen with no relief. Denies any other symptoms, pain or injury. Medical history is none. Denies IV drug use. - History of Current Complaint Chief Complaint: EDBackInjuryPain Stated Complaint: PAIN IN RT LEG Time Seen by Provider: 03/24/18 16:42 Hx Obtained From: Patient Hx Last Menstrual Period: 10/26/17 Onset/Duration: Gradual Onset Onset/Duration: Started Hours Ago Timing: Constant Back Pain Location: Is Discrete @ Severity Initially: Severe Severity Currently: Severe Pain Intensity: 10 Pain Scale Used: 0-10 Numeric Character: Sharp, Aching Aggravating Symptom(s): Movement, Walking Alleviating Symptom(s): Rest Associated Signs And Symptoms: Positive: Negative - Allergies/Home Medications Allergies/Adverse Reactions: Allergies Allergy/AdvReac Type Severity Reaction Status Date / Time No Known Allergies Allergy Verified 01/27/18 16:39 PMH/Surg Hx/FS Hx/Imm Hx Endocrine/Hematology History: Denies: Hx Anticoagulant Therapy, Hx Diabetes, Hx Thyroid Disease Cardiovascular History: Denies: Hx Aneurysm, Hx Hypertension Respiratory History: Denies: Hx Asthma, Hx Chronic Obstructive Pulmonary Disease (COPD) GI History: Denies: Hx Cirrhosis, Hx Crohn's Disease, Hx Diverticulosis, Hx Gall Bladder Disease, Hx Gastroesophageal Reflux Disease, Hx Gastrointestinal Bleed, Hx Hiatal Hernia, Hx Irritable Bowel, Hx Ulcer History: Reports: Hx Kidney Stones - RIGHT, Other Problems/Disorders - hx of kidney stones with stent/stent removed 06/12 Denies: Hx Renal Disease Musculoskeletal History: Denies: Hx Arthritis, Hx Back Problems, Hx Fibromyalgia, Hx Orthopedic Injury , Hx Osteoporosis Psychiatric History: Reports: Hx Anxiety, Hx Depression - Surgical History Surgery Procedure, Year, and Place: tubes in ears as a child, CSECTION x2 / RENAL STENT PLACEMENT/REMOVAL - Immunization History Date of Tetanus Vaccine: unknown Date of Influenza Vaccine: NO Infectious Disease History: No Infectious Disease History: Denies: Hx Clostridium Difficile, Hx Hepatitis, Hx Human Immunodeficiency Virus (HIV), Hx of Known/Suspected MRSA, Hx Shingles, Hx Tuberculosis, Hx Known/ Suspected VRE, Hx Known/Suspected VRSA, History Other Infectious Disease, Traveled Outside the [place] in Last 30 Days - Family History Known Family History: Positive: None, Cardiac Disease, Hypertension, Diabetes, Other - Ovarian cysts - Social History Alcohol Use: Occasionally Alcohol Amount: 2-3/week Hx Substance Use: No Substance Use Type: Reports: None Hx Tobacco Use: No Smoking Status (MU): Never Smoked Tobacco Have You Smoked in the Last Year: No Review of Systems Constitutional: Negative Eyes: Negative ENT: Negative Cardiovascular: Negative Respiratory: Negative Gastrointestinal: Negative Genitourinary: Negative Musculoskeletal: Other Skin: Negative Neurological: Negative Psychological: Normal All Other Systems Reviewed And Are Negative: Yes Physical Exam - Summary Physical Exam Summary: Pain with palpation of right gluteus. No pain with palpation of C-spine or paraspinous muscles. PMS intact on bilateral lower extremities. Patient able to flex and extend bilateral hips. Abdominal exam unremarkable. Triage Information Reviewed: Yes Vital Signs On Initial Exam: Initial Vitals Temp Pulse Resp BP Pulse Ox 97.6 F 117 20 129/68 99 03/24/18 14:27 03/24/18 14:27 03/24/18 14:27 03/24/18 14:27 03/24/18 14:27 Vital Signs Reviewed: Yes Appearance: Positive: Well-Appearing Skin: Positive: Warm Head/Face: Positive: Normal Head/Face Inspection Eyes: Positive: Normal Neck: Positive: Supple Respiratory/Lung Sounds: Positive: Clear to Auscultation Cardiovascular: Positive: Normal Abdomen Description: Positive: Nontender Musculoskeletal: Positive: Normal Neurological: Positive: Normal Psychiatric: Positive: Normal AVPU Assessment: Alert - [place] Coma Scale Best Eye Response: 4 - Spontaneous Best Motor Response: 6 - Obeys Commands Best Verbal Response: 5 - Oriented Coma Scale Total: 15 Diagnostics - Vital Signs Vital Signs Temp Pulse Resp BP Pulse Ox 03/24/18 17:11 16 03/24/18 14:27 97.6 F 117 20 129/68 99 - Laboratory Lab Results: Lab Results 03/24/18 Range/Units 16:11 Beta HCG, Quant < 0.60 mIU/mL Lab Statement: Any lab studies that have been ordered have been reviewed, and results considered in the medical decision making process. Back Pain Course/Dx - Course Course Of Treatment: Patient complains of right lower back pain radiating into right gluteus starting to p.m. yesterday. Patient is ambulatory, but Pain worse with walking. Denies trauma, specific event associated with onset of pain , radiation of pain down legs, urinary retention, incontinence, history of same. Patient has taken naproxen with no relief. Denies any other symptoms, pain or injury. Medical history is none. Denies IV drug use. Physical exam: Pain with palpation of right gluteus. No pain with palpation of C-spine or paraspinous muscles. PMS intact on bilateral lower extremities. Patient able to flex and extend bilateral hips. Abdominal exam unremarkable. Vital signs within normal limits. Symptoms consistent with muscle spasm. - Diagnoses Provider Diagnoses: Muscle spasm Discharge - Sign-Out/Discharge Documenting (check all that apply): Patient Departure - Discharge Plan Condition: Stable Disposition: HOME Prescriptions: Diazepam TAB(*) [Valium TAB(*)] 5 mg PO TID PRN 2 Days #5 tab MDD 3 tabs PRN Reason: Pain predniSONE TAB* [Deltasone 20 MG TAB*] 40 mg PO DAILY 5 Days #10 tab Patient Education Materials: Muscle Spasm (ED) Forms: *Gen. Provider Communication Referrals: Godwin Cheney MD [Primary Care Provider] - Additional Instructions: Follow-up with primary care. Return to the ED for any new or worsening symptoms - Billing Disposition and Condition Condition: STABLE Disposition: Home
[2018-03-24 18:17] VITALS: BP 135/87
== END 2018-03-24 18:16 | disposition home or self-care (01) ==
LOC: ED 14:26
DX: M62.830 Muscle spasm of back (principal)
CPT/HCPCS: 36415; 84702; 99282; A9270-GY; J7512

== ENCOUNTER 2018-05-23 12:15 | Emergency (ER) | payer MEDICAID, OTHER ==
[2018-05-23 12:33] VITALS: BP 124/73
--- NOTE | 2018-05-23 13:09 | UC ---
Skin Complaint HPI - HPI Summary HPI Summary: started 2 weeks ago with rash on back of neck. no new personal care products, clothes or jewlery. did not feel sick before or at anytime after rash occurred tried hydrocortisone cream w/o relief - History of Current Complaint Chief Complaint: UCSkin Time Seen by Provider: 05/23/18 12:17 Stated Complaint: SKIN COMPLAINT Hx Obtained From: Patient Hx Last Menstrual Period: unknown ?: No Onset/Duration: Gradual Onset Skin Exposure Onset/Duration: Days Ago Timing: Constant Onset Severity: Moderate Current Severity: Moderate Pain Intensity: 8 Character: Pruritus, Pain, Redness, Raised Aggravating Factor(s): Touch Alleviating Factor(s): Nothing Associated Signs & Symptoms: Positive: Negative. Negative: Nausea, Vomiting, Fever, Cough - Allergy/Home Medications Allergies/Adverse Reactions: Allergies Allergy/AdvReac Type Severity Reaction Status Date / Time No Known Allergies Allergy Verified 05/23/18 12:34 Home Medications: Home Medications Desogestrel-Ethinyl Estradiol [Cyred 28 Day Tablet] 1 tab PO DAILY WITH MEAL [History Confirmed 05/23/18] PMH/Surg Hx/FS Hx/Imm Hx Previously Healthy: Yes Other History Of: Negative For: Anticoagulant Therapy - Surgical History Surgical History: None Surgery Procedure, Year, and Place: tubes in ears as a child, CSECTION x2 - Family History Known Family History: Positive: Cardiac Disease, Hypertension, Diabetes, Other - Ovarian cysts - Social History 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 Lives: With Family Alcohol Use: Occasionally Alcohol Amount: 2-3/week Substance Use Type: None Smoking Status (MU): Never Smoked Tobacco Have You Smoked in the Last Year: No Household Exposure Type: Cigarettes - Immunization History Most Recent Influenza Vaccination: unknown Most Recent Tetanus Shot: 05/30/16 Most Recent Pneumonia Vaccination: NA Review of Systems All Other Systems Reviewed And Are Negative: Yes Constitutional: Positive: Negative Skin: Positive: Rash Respiratory: Positive: Negative Cardiovascular: Positive: Negative Musculoskeletal: Positive: Negative Neurological: Positive: Negative Psychological: Positive: Negative Is Patient Immunocompromised?: No Physical Exam Triage Information Reviewed: Yes Appearance: Well-Appearing, Obese Vital Signs: Initial Vital Signs Temp 98.4 F 05/23/18 12:29 Pulse 95 05/23/18 12:29 Resp 18 05/23/18 12:29 BP 124/73 05/23/18 12:29 Pulse Ox 100 05/23/18 12:29 Vital Signs Reviewed: Yes Eye Exam: Normal Eyes: Positive: Conjunctiva Clear Neck exam: Normal Neck: Positive: No Lymphadenopathy Respiratory Exam: Normal Respiratory: Positive: Lungs clear Cardiovascular Exam: Normal Cardiovascular: Positive: RRR Musculoskeletal Exam: Normal Neurological Exam: Normal Psychological Exam: Normal Skin: Positive: Rashes Course/Dx - Differential Diagnoses - Skin Complaint Differential Diagnoses: Cellulitis, Contact Dermatitis - Diagnoses Provider Diagnosis: Rash Discharge - Sign-Out/Discharge Documenting (check all that apply): Patient Departure All imaging exams completed and their final reports reviewed: No Studies - Discharge Plan Condition: Good Disposition: HOME Prescriptions: Betamethasone Dipropionate 0.05 % EX BID #15 gm Patient Education Materials: Acute Rash (ED) Referrals: Godwin Cheney MD [Primary Care Provider] - 5 Days (if no better) Additional Instructions: apply steroid cream to rash as directed - Billing Disposition and Condition Condition: GOOD Disposition: Home
== END 2018-05-23 13:18 | disposition home or self-care (01) ==
LOC: UCEAST 12:15
DX: R21 Rash and other nonspecific skin eruption (principal)
CPT/HCPCS: 99212; G0463

== ENCOUNTER 2018-06-25 14:13 | Emergency (ER) | payer OTHER ==
[2018-06-25 14:54] VITALS: BP 112/60
--- NOTE | 2018-06-25 14:59 | UC ---
Skin Complaint HPI - HPI Summary HPI Summary: rash on back of neck for 1 mo. and feels its spreading. itchy and red. denies new meds. has not used new creams/lotions. does not think its related to necklace. - History of Current Complaint Chief Complaint: UCSkin Time Seen by Provider: 06/25/18 14:56 Stated Complaint: RASH Hx Obtained From: Patient Hx Last Menstrual Period: continous bcp Pain Intensity: 0 Aggravating Factor(s): Nothing Alleviating Factor(s): Nothing - Allergy/Home Medications Allergies/Adverse Reactions: Allergies Allergy/AdvReac Type Severity Reaction Status Date / Time No Known Allergies Allergy Verified 06/25/18 14:49 PMH/Surg Hx/FS Hx/Imm Hx Previously Healthy: Yes Other History Of: Negative For: Anticoagulant Therapy - Surgical History Surgical History: Yes Surgery Procedure, Year, and Place: tubes in ears as a child, CSECTION x2. Kidney stent 2017 - Family History Known Family History: Positive: None, Cardiac Disease, Hypertension, Diabetes, Other - Ovarian cysts - Social History Alcohol Use: Occasionally Alcohol Amount: 2-3/week Substance Use Type: None Smoking Status (MU): Never Smoked Tobacco Have You Smoked in the Last Year: No Household Exposure Type: Cigarettes - Immunization History Most Recent Influenza Vaccination: unknown Most Recent Tetanus Shot: 05/30/16 Most Recent Pneumonia Vaccination: NA Review of Systems All Other Systems Reviewed And Are Negative: Yes Constitutional: Positive: Negative Skin: Positive: Rash. Negative: Bruising Respiratory: Positive: Negative Cardiovascular: Positive: Negative Physical Exam Triage Information Reviewed: Yes Appearance: Well-Appearing Vital Signs: Initial Vital Signs Temp 99.0 F 06/25/18 14:50 Pulse 84 06/25/18 14:50 Resp 18 06/25/18 14:50 BP 112/60 06/25/18 14:50 Pulse Ox 100 06/25/18 14:50 Vital Signs Reviewed: Yes ENT: Positive: Pharynx normal Neck: Positive: No Lymphadenopathy Respiratory Exam: Normal Cardiovascular Exam: Normal Skin: Positive: Other - large thickened erythematous palque-like lesion back of neck. no other lesions. no crusting or vesicles. Course/Dx - Course Course Of Treatment: Chronic rash on back of neck that appears to be psoriatic in appearance. will tx w/ steroid ointment for now but strongly recommend derm appt to fully evaluate pt. , consider biopsy. not infectious in nature, vitals good. - Differential Diagnoses - Skin Complaint Differential Diagnoses: Cellulitis, Drug Rash, Impetigo, Local Allergic Reaction - Diagnoses Provider Diagnosis: Psoriasiform dermatitis Discharge - Sign-Out/Discharge Documenting (check all that apply): Patient Departure All imaging exams completed and their final reports reviewed: No Studies - Discharge Plan Condition: Good Disposition: HOME Prescriptions: Betamethasone Dip 0.05% ON(NF) [Betamethasone Dipr 0.05% OINT(NF)] 1 applic TOPICAL DAILY #1 tube Patient Education Materials: Psoriasis (ED) Referrals: Graciela Escalante MD [Medical Doctor] - - Billing Disposition and Condition Condition: GOOD Disposition: Home
== END 2018-06-25 15:15 | disposition home or self-care (01) ==
LOC: UCEAST 14:13
DX: L30.8 Other specified dermatitis (principal)
CPT/HCPCS: 99212; G0463

== ENCOUNTER 2018-08-02 15:43 | Emergency (ER) | payer OTHER ==
--- OUTSIDE RECORDS SUMMARY | 2018-08-02 15:48 | XMS REPORT ---
:1985 Author Organization [facility] Address [address] [place] [address] Care Team Providers Name Role Phone Godwin Cheney Unavailable Unavailable PROBLEMS Type Condition ICD9-CM Code [id number] Onset Condition SNOMED Code Code Dates Status Problem Anxiety F41.9 Active 41735126 Problem BMI 39.0-39.9,adult Z68.39 Active 556661516 Problem Primary M17.11 Active 040559803 osteoarthritis of right knee Problem Renal stones N20.0 Active 58986721 Problem Bipolar I disorder F31.9 Active 856303621 Problem Obesity (BMI E66.9 Active 275882575 30-39.9) ALLERGIES No Information ENCOUNTERS Encounter Location Date Diagnosis [address], [place] [address] Jun, [place] [address] Jan, [place] [address] Sep, [place] [address], [place] [address] [place] [address] [place], [facility] [place] [address] [facility] [address] [place] [address] [place], [place] [address] [place], [place], Anxiety F41.9 ; [place] [address] pain R10.9 ; Obesity (BMI 30-39.9) E66.9 and BMI 39.0-39.9,adult Z68.39 [address] [place] [address] Jun, [facility] [place], [place] [address] Dave Cervantes [address] May, [facility] [place] [address] [place] [facility] [address] [place] [address] [place] [facility] [address] [place] [address] [place] [facility] [address] [place] [address] [place] [facility] [address] [place] [address] [place] [facility] [address] [place] [address] [place] [facility] [address] [place] [address] [place] [facility] [address] [place] [address] [place] [facility] [address] [place], [place] [address] [place] [facility] [address] [place], [place], [place] [address] [place] [facility] [address] [place], [place], Acute pyelonephritis [address] ; [place] [address] Anxiety F41.9 and Obesity (BMI 30-39.9) E66.9 [place] [facility] [address] [place], [place] [address] [place] [facility] [address] [place], [place], Nausea R11.0 ; [place] [address] unspecified etiology J02.9 ; Anxiety F41.9 and Obesity (BMI 30-39.9) E66.[address] Jun, [place] [address] [place], [place] [address] [place], [place] [address] Apr, [place] [address] [facility] [address] [place] [address] [place] [address] [place], [place] [address] reading Z11.1 ; Encounter for immunization Z23 and Immunity status testing Z01.[address] [place], [place], [place] [address] examination Z02.0 and Anxiety F41.[address] [place], [place], Knee pain, [place] 719.46 [place] [address] Bipolar affective disorder, depressed 296.[address] [place], [place] [address] [place], [place] [address] [place], [place], [place] [address] pulmonary tuberculosis V74.1 ; Obesity (BMI 30-39.9) 278.00 and Bipolar affective disorder, depressed 296.50 IMMUNIZATIONS No Known Immunizations SOCIAL HISTORY Never Assessed REASON FOR REFERRAL FUNCTIONAL STATUS PLAN OF CARE VITAL SIGNS MEDICATIONS Unknown Medications PROCEDURES No Known procedures RESULTS No Results REASON FOR VISIT Medical Letter of Support Insurance Providers [facility] Member Patient Patient Patient Patient Patient Subscriber Subscriber Subscriber Group Insurance Plan Plan Plan Plan ID Relationship Address Phone Name Date of ID Name Date of No Type Insurance Insurance Insurance Coverage to Subscriber Address Phone Name Dates [place] [phone] [place]qui self Nastassj [id number] Medicaid [id number] Medicaid [facility] [place] [address] [employer] Medicaid [id number] [phone] Medicaid self Nastassj [id number] [facility] [address] [address] [place] [phone] [place] self Nastassj [id number] Medicaid [id number] 47 Medicaid [facility] [address] Medical [place] MEDICAL (GENERAL) HISTORY Type Description Date Medical History anxiety and depression Medical History obesity Medical History Renal calculi Surgical History tubes in ears age 14 Surgical History x2 Surgical History RIght sided renal stent placed/removed 2015 Hospitalization History kidney infection 01/2012 Hospitalization History none
[2018-08-02 16:23] VITALS: BP 121/69
[2018-08-02] MEDS ORDERED: HYDROcodone/ACETAMIN 5-325 MG* 1 TAB PO ONE ×2 (16:55→18:13)
[2018-08-02] MEDS ORDERED: Ondansetron ODT TAB* 4 MG PO ONE ×2 (16:55→18:10)
--- NOTE | 2018-08-02 16:57 | UC ---
Complaint Female HPI - HPI Summary HPI Summary: Patient is year 32 yr old female, who present today to the urgent care with left-sided flank pain for past 5 days she has a history of Right side UTI and left-sided renal calculi in 2017 status post stent placement. she reports that pain is mainly located in her left side flank area and radiates down to her groin. This pain is constant. She also notices some intermittent right-sided flank pain that does not radiate as much. She reports associated nausea but denies any vomiting. She took Tylenol 1 g at 11 AM today without much relief in symptoms. she denies any fever. Her last menstrual period was 4 months ago. Denies any fever, chills, cough chest pain or shortness of breath . No diaphoresis. Denies any abdominal pain , nausea or vomiting , diarrhea or constipation. she has had multiple CT scans over the last year- April or June 2017 , [place] CT scans were negative for any renal calculi. CT scan from July 2016 was negative for any renal calculi. - History Of Current Complaint Chief Complaint: UCBackPain Stated Complaint: N/V PAIN IN SIDE AND BACK Time Seen by Provider: 08/02/18 16:22 Hx Last Menstrual Period: extended cyclle with BCP, 4 mos ago Pain Intensity: 10 - Allergies/Home Medications Allergies/Adverse Reactions: Allergies Allergy/AdvReac Type Severity Reaction Status Date / Time No Known Allergies Allergy Verified 08/02/18 16:25 PMH/Surg Hx/FS Hx/Imm Hx - Additional Past Medical History Additional PMH: hyperlipidemia Renal calculi on the left side status post stent placement in 2017 Hydronephrosis Influenza Previously Healthy: Yes Other History Of: Negative For: Anticoagulant Therapy - Surgical History Surgical History: Yes Surgery Procedure, Year, and Place: tubes in ears as a child, CSECTION x2. Kidney stent 2017 with 8 mm stone - Family History Known Family History: Positive: None, Cardiac Disease, Hypertension, Diabetes, Other - Ovarian cysts - Social History Alcohol Use: Occasionally Alcohol Amount: 2-3/week Substance Use Type: None Smoking Status (MU): Never Smoked Tobacco Have You Smoked in the Last Year: No Household Exposure Type: Cigarettes - Immunization History Most Recent Influenza Vaccination: unknown Most Recent Tetanus Shot: 05/30/16 Most Recent Pneumonia Vaccination: NA Review of Systems All Other Systems Reviewed And Are Negative: Yes Constitutional: Positive: Negative Skin: Positive: Negative Eyes: Positive: Negative ENT: Positive: Negative Respiratory: Positive: Negative Cardiovascular: Positive: Negative Gastrointestinal: Positive: Nausea, Other - bilateral flank pain left is constant,right-sided intermittent Genitourinary: Positive: Urgency. Negative: Hematuria, Vaginal/Penile Discharge Motor: Positive: Negative Neurovascular: Positive: Negative Musculoskeletal: Positive: Negative Neurological: Positive: Negative Psychological: Positive: Negative Is Patient Immunocompromised?: No Physical Exam - Summary Physical Exam Summary: Physical Exam: Const: Appears well. No signs of apparent distress present. Alert and oriented x 3. Musculo: Walks with a normal gait. Head/Face: Atraumatic, normocephalic on inspection. Eyes: EOMI and PERRLA in both eyes. Conjunctivae clear. No discharge noted ENT: Hearing normals. No pharyngeal erythema or exudates . Uvula is midline. No cervical or submandibular lymphadenopathy noted. Respiratory: Respirations are unlabored. Lungs clear to auscultation bilaterally, no wheezing , rhonchi or rales noted . CVS: Regular rate and Rhythm, S1S2 normal , no murmurs identified. Extremities: Peripheral circulation is grossly normal. Pulses 2+ Abdomen : Soft non tender , nondistended , Bowel sounds present . No guarding , rebound tenderness or rigidity noted. CVA tenderness is noted bilaterally, left is more than the right. Skin: No lesions or rash located on the upper extremities or on the lower extremities. Neuro: Cranial nerves II to XII intact, motor and sensory intact. DTR Intact bilaterally. Mood is normal. Affect is normal. Triage Information Reviewed: Yes Vital Signs: Initial Vital Signs Temp 98.1 F 08/02/18 16:15 Pulse 95 08/02/18 16:15 Resp 17 08/02/18 16:15 BP 121/69 08/02/18 16:15 Pulse Ox 98 08/02/18 16:15 Vital Signs Reviewed: Yes Diagnostics - Radiology No standard instances Radiology Interpretation Completed By: Radiologist - CT scan of abdomen and pelvis without contrast: There are no renal calculi or signs of obstructive uropathy in this overall normal noncontrast CT of the abdomen and pelvis.. Complaint Female Dx - Course Course Of Treatment: During the visit today, I reviewed the prior CT scans from 2018 Which were done for her flank pain and which were all negative.she has had multiple CT scans over the last year- April or June 2017, [place] CT scans were negative for any renal calculi. CT scan from July 2016 was negative for any renal calculi. Last menstrual period was 4 months ago, she is on control pill and declined test. UA : neg She was given 1 dose of Zofran along with one dose of [place] for pain we obtained CT scan of abdomen and pelvis: There are no renal calculi or signs of obstructive uropathy in this overall normal noncontrast CT of the abdomen and pelvis. We discussed the findings and further plan to send her home with Zofran and [place] for the night and prescribed to the pharmacy since she has a history of pyelonephritis, though her urine is negative but her symptoms can be consistent with early pyelonephritis, plan to cover her with antibiotics. She was given 1 dose of levofloxacin here. she was also dispensed one dose of [place] and 2 tablets of 4 mg Zofran for the night as the pharmacy is closed. Rest of the medications were E prescribed. She will follow-up with her primary care physician in 1-2 days, she has an appointment with him on 08/06/18 Patient expressed understanding . - Differential Dx/Diagnosis Differential Diagnosis/HQI/PQRI: Endometriosis Provider Diagnosis: Flank pain, Pyelonephritis Discharge - Sign-Out/Discharge Documenting (check all that apply): Patient Departure All imaging exams completed and their final reports reviewed: Yes - Discharge Plan Condition: Stable Disposition: HOME Prescriptions: HYDROcodone/ACETAMIN 5-325 MG* [[place] 5-325 TAB*] 1 tab PO Q8H PRN 7 Days #21 tab MDD 3 PRN Reason: Pain Levofloxacin TAB* [Levaquin 750 MG TAB*] 750 mg PO DAILY 6 Days #6 tab Ondansetron ODT TAB* [Zofran 4 MG Odt TAB*] 4 mg PO Q6H PRN 7 Days #30 tab.odt PRN Reason: Nausea Patient Education Materials: Kidney Infection (ED), Flank Pain (ED) Referrals: Godwin Cheney MD [Primary Care Provider] - 2 Days Additional Instructions: Please start taking the medication as prescribed to the pharmacy . Keep yourself hydrated Follow up with your primary care doctor in 2 days. Blood pressure was slightly high at prehypertensive range. Follow up with your primary care doctor for recheck Return to Urgent care / ER if symptoms get worse. - Billing Disposition and Condition Condition: STABLE Disposition: Home
[2018-08-02] MEDS ORDERED: Levofloxacin TAB* 250 MG PO ONE (18:10)
[2018-08-02] MEDS ORDERED: Sulfamethox/Trimethoprim DS 800/160* TAB PO ONE (18:26)
== END 2018-08-02 18:36 | disposition home or self-care (01) ==
LOC: UCEAST 15:43
DX: N12 Tubulo-interstitial nephritis, not specified as acute or chronic (principal); R10.9 Unspecified abdominal pain
CPT/HCPCS: 74176; 81003; 99213; A9270-GY; G0463

== ENCOUNTER 2018-10-19 11:59 | Emergency (ER) | payer OTHER ==
[2018-10-19 12:10] VITALS: BP 107/63
--- NOTE | 2018-10-19 12:36 | UC ---
FLU HPI - HPI Summary HPI Summary: 32 y/o female presents to the urgent care c/o nausea, body aches, chills, nasal congestion w/ clear nasal discharge since yesterday. Overnight she had frequency on urination, but not burning. This morning she had an episode of diarrhea. She took 1 Zofran PO from previous Rx to alleviate symptoms, but denies vomiting. She also has a dry cough w/ mild TERRY associated w/ mild RT ear pain. Pt denies fever, chills, SOB, dizziness, chest pain, abdominal pain, V/D, constipation, vaginal discharge, burning on urination, lower back pain or flank pain. - History of Current Complaint Chief Complaint: UCGeneralIllness Stated Complaint: NAUSEA, ACHES, AND LOW ENERGY Time Seen by Provider: 10/19/18 12:26 Hx Obtained From: Patient Hx Last Menstrual Period: no period in 6 months states double cycle Onset/Duration: Gradual Onset Severity Currently: Mild Severity Initially: Mild Pain Intensity: 1 Pain Scale Used: 0-10 Numeric Associated Signs & Symptoms: Positive: Myalgia, Cough - dry, Nasal Congestion - clear, Headache - mild, Diarrhea - 1 episode this morning. Negative: Fever, Vomiting - Risk Factors Influenza Risk Factors: Negative - Allergy/Home Medications Allergies/Adverse Reactions: Allergies Allergy/AdvReac Type Severity Reaction Status Date / Time No Known Allergies Allergy Verified 10/19/18 12:03 PMH/Surg Hx/FS Hx/Imm Hx Previously Healthy: Yes GI/ History: Kidney Stones Other GI/ History: pyelonephritis Other History Of: Negative For: Anticoagulant Therapy - Surgical History Surgical History: Yes Surgery Procedure, Year, and Place: tubes in ears as a child, CSECTION x2. Kidney stent 2017 with 8 mm stone - Family History Known Family History: Positive: Cardiac Disease, Hypertension, Diabetes, Other - Ovarian cysts - Social History Occupation: Employed Full-time Lives: With Family Alcohol Use: Occasionally Alcohol Amount: 2-3/week Substance Use Type: None Smoking Status (MU): Never Smoked Tobacco Have You Smoked in the Last Year: No Household Exposure Type: Cigarettes - Immunization History Most Recent Influenza Vaccination: unknown Most Recent Tetanus Shot: 05/30/16 Most Recent Pneumonia Vaccination: NA Review of Systems All Other Systems Reviewed And Are Negative: Yes Constitutional: Positive: Fatigue, Other - body aches Skin: Positive: Negative Eyes: Positive: Negative ENT: Positive: Ear Ache - Rt ear pain, Nasal Discharge - clear, Sinus Congestion , Other - clear PND Respiratory: Positive: Cough - dry Physical Exam - Summary Physical Exam Summary: VITAL SIGNS: Reviewed. GENERAL: Patient is a well developed and nourished female child who is sitting comfortably in the examining table. Patient is not in any acute respiratory distress. HEAD AND FACE: No signs of trauma. No ecchymosis, hematomas or skull depressions. No sinus tenderness. EYES: PERRLA, EOMI x 2, No injected conjunctiva, no nystagmus. No photophobia. EARS: Hearing grossly intact. RT external ear canl swollen and w/ erythema, no discahrge. RT TM WNL, LF external ear canal clear, LF TM WNL. MOUTH: Positive pharynx with mild erythema, no exudates, No B/L tonsillar enlargement , no exudate. Uvula in midline. edematous nasal mucosa w/ clear nasal discharge, clear PND NECK: Supple, trachea is midline, Positive anterior cervical lymphadenopathy, no JVD, no carotid bruit, no c-spine tenderness, neck with full ROM. No meningeal signs, no Kernig's or brudzinskis signs. CHEST: Symmetric, no tenderness at palpation LUNGS: Clear to auscultation bilaterally. No wheezing or crackles. CVS: Regular rate and rhythm, S1 and S2 present, no murmurs or gallops appreciated. ABDOMEN: Soft, non-tender. No signs of distention. No rebound no guarding, and no masses palpated. Bowel sounds are normal. EXTREMITIES: FROM in all major joints, no edema, no cyanosis or clubbing. NEURO: Alert and oriented x 3. No acute neurological deficits. Pt follows commands. SKIN: Dry and warm Triage Information Reviewed: Yes Vital Signs: Initial Vital Signs Temp 98.5 F 10/19/18 12:05 Pulse 83 10/19/18 12:05 Resp 18 10/19/18 12:05 BP 107/63 10/19/18 12:05 Pulse Ox 99 10/19/18 12:05 Flu Course/Dx - Course Course Of Treatment: 32 y/o female presents to the urgent care c/o nausea, body aches, chills, nasal congestion w/ clear nasal discharge since yesterday. Overnight she had frequency on urination, but not burning. This morning she had an episode of diarrhea. She took 1 Zofran PO from previous Rx to alleviate symptoms, but denies vomiting. She also has a dry cough w/ mild TERRY associated w/ mild RT ear pain. Pt denies fever, chills, SOB, dizziness, chest pain, abdominal pain, V/D, constipation, vaginal discharge, burning on urination, lower back pain or flank pain. Hx obtained. Pt with a left otitis externa and a Viral syndrome on examination. Influeza A&B: negative. UA: negative, ; negative. Pt Rx Cortisporin otic drops to alleviate otitis externa. Advised to take ibuprofen PO OTC for pain and to take Zofran PO for nausea or vomiting. If symptoms do not improve or worsen to return to the urgent care or f/u with PCP for further management. Pt understood and agreed with D/C instructions.Pt left the clinic hemodynamiclly stable, A&OX3 - Differential Dx/Diagnosis Differential Diagnosis/HQI/PQRI: Bronchitis, Influenza, Pneumonia, Upper Respiratory Infection, Other - ear infection, UTI Provider Diagnosis: Otitis externa of right ear, Viral syndrome Discharge - Sign-Out/Discharge Documenting (check all that apply): Patient Departure - D/C home All imaging exams completed and their final reports reviewed: No Studies - Discharge Plan Condition: Stable Disposition: HOME Prescriptions: Neomyc/Polym/HC 1% OTIC SUSP* [Cortisporin Otic Susp 1%*] 4 drop RIGHT EAR TID # 1 btl Patient Education Materials: Viral Syndrome (ED) Forms: *Work Release Referrals: Godwin Cheney MD [Primary Care Provider] - 3 Days Additional Instructions: 1-Please apply Cortisporin otic antibiotic on your Rt ear as directed. 2-Take Tylenol PO q6hrs prn after meals for pain. 3- Continue taken Zofran PO you have at home to alleviate nausea. Increase hydration, eat small portion of food and rest 4-If symptoms do not improve or worsen please f/u with your PCP in 3 days or return to the urgent care for further evaluation and treatment. - Billing Disposition and Condition Condition: STABLE Disposition: Home
[2018-10-19 13:05] LABS: Influenza A Molecular NEGATIVE (Negative); Influenza B Molecular NEGATIVE (Negative)
== END 2018-10-19 13:19 | disposition home or self-care (01) ==
LOC: UCEAST 11:59
DX: H60.551 Acute reactive otitis externa, right ear (principal); B34.9 Viral infection, unspecified
CPT/HCPCS: 81003; 84702; 99212; G0463

== ENCOUNTER 2018-11-03 12:28 | Inpatient (IN) | payer OTHER ==
[~2018-11-03 12:28] MED LIST changes: +Buffered Lidocaine 1% SYRIN* 1 ML/SYRINGE INTRADERM ONE; -Buffered Lidocaine 1% SYRIN* 3 ML/SYR SYRINGE INTRADERM ONE; +Dexamethasone IV* 4 MG/ML 1 ML (4 MG) IV SLOW PU ONE; +Famotidine IV* 10 MG/ML 2 ML (20 mg) IV ONE; +Lactated Ringers 1000 ML Bag* 1,000 ML IV SCH; +Ondansetron INJ* 2 MG/ML VIAL IV ONE; +Scopolamine 1.5 mg* PATCH TRANSDERM ONE; -Sodium Citrate/Citric Acid* 15 ML UDC PO ONE
[2018-11-03] MEDS ORDERED: Dexamethasone IV* 4 MG/ML 1 ML (4 MG) ONE (12:50)
[2018-11-03] MEDS ORDERED: Ondansetron INJ* 2 MG/ML VIAL ONE (12:50)
[2018-11-03] MEDS ORDERED: Heparin VIAL(*) 5000 UNITS/ML VIAL (FIVE THOUSAND) ONE (12:50)
[2018-11-03] MEDS ORDERED: ceFAZolin 1 GM ADVAN(*) 1 GM ADDV.VIAL IVPB ONE (12:51)
[2018-11-03] MEDS ORDERED: Scopolamine 1.5 mg* PATCH ONE (12:51)
[2018-11-03] MEDS ORDERED: Famotidine IV* 10 MG/ML 2 ML (20 mg) ONE (12:51)
[2018-11-03] MEDS ORDERED: ceFAZolin 2 GM in NS PREMIX(*) 2 GM/100 ML BAG IVPB ONE (12:51)
[2018-11-03] MEDS: Ondansetron INJ* 2 MG/ML VIAL IV PRN ×2 (13:13→21:08)
[2018-11-03] MEDS ORDERED: Bupivacaine 0.25% W/EPI* 10 ML SDV ONE ×2 (13:50→13:54)
[2018-11-03] MEDS ORDERED: Bupivacaine 0.25% SDV PF* 10 ML VIAL INJ ONE (13:52)
[2018-11-03] MEDS ORDERED: fentaNYL* 50 MCG/ML 2 ML VIAL (100 MCG VIAL) ONE (13:52)
[2018-11-03] MEDS ORDERED: Midazolam* 1 MG/ML 2 ML VIAL (2 MG) ONE (13:52)
[2018-11-03] MEDS ORDERED: Lidocaine 2% PF * 5 ML VIAL ONE (13:53)
[2018-11-03] MEDS ORDERED: Propofol* 10 MG/ML 20 ML BTL ONE (13:53)
[2018-11-03] MEDS ORDERED: Rocuronium* 10 MG/ML VIAL ONE (13:53)
[2018-11-03] MEDS ORDERED: Acetaminophen IV 1GM/100ML * 1,000 MG/100 ML VIAL IVPB ONE (14:04)
[2018-11-03] MEDS ORDERED: Naloxone* 0.4 MG/ML 1 ML VIAL IV PRN (14:04)
[2018-11-03] MEDS ORDERED: DiMENhydriNATE IV* 50 MG/ML VIAL IV PUSH PRN (14:04)
[2018-11-03] MEDS: Ketorolac INJ* 30 MG/ML 1 ML VIAL IV PRN (15:30)
[2018-11-03] MEDS ORDERED: Glycopyrrolate IV* 0.2 MG/ML 1 ML VIAL ONE (15:37)
[2018-11-03] MEDS ORDERED: Neostigmine Methylsulfate* 3 MG/3 ML SYRINGE ONE (15:38)
[2018-11-03] MEDS ORDERED: Ketorolac INJ* 30 MG/ML 1 ML VIAL ONE (15:39)
[2018-11-03] MEDS ORDERED: diPHENhydraMINE IV* 50 MG/ML 1 ml VIAL (BENADRYL) SLOW PUSH PRN (15:43)
[2018-11-03] MEDS ORDERED: fentaNYL* 50 MCG/ML 5 ML VIAL (250 MCG VIAL) ONE (16:08)
[2018-11-03] MEDS ORDERED: DiMENhydriNATE IV* 50 MG/ML VIAL ONE (16:08)
[2018-11-03] MEDS ORDERED: Acetaminophen IV 1GM/100ML * 100 ML ONE (16:09)
[2018-11-03] MEDS: fentaNYL* 50 MCG/ML 2 ML VIAL (100 MCG VIAL) IV PRN ×4 (16:10→17:12)
[2018-11-03] MEDS: Lactated Ringers 1000 ML Bag* 1,000 ML IV SCH (18:30)
[2018-11-03] MEDS: Metoclopramide IV* 5 MG/ML 2 ML VIAL IV PRN (19:50)
[2018-11-03] MEDS: HYDROmorphone INJ1* 1 MG/ML SYRINGE IV SLOW PU PRN (21:01)
[2018-11-03] MEDS: Famotidine IV* 10 MG/ML 2 ML (20 mg) IV SLOW PU SCH (21:12)
[2018-11-03] MEDS: Heparin VIAL(*) 5000 UNITS/ML VIAL (FIVE THOUSAND) SUBCUT SCH (23:02)
--- NOTE | 2018-11-03 23:15 | OP ---
CC: Godwin Cheney MD; [facility] * DATE OF OPERATION: 11/03/18 - ROOM #353 DATE OF : 89 SURGEON: Brayden Campbell M.D. ENGINEERING JOB TITLES: Chayo Ojeda NP. ANESTHESIOLOGIST: Clayton Rangel DO. ANESTHESIA: General endotracheal. PRE-OP DIAGNOSIS: Clinically severe obesity. POST-OP DIAGNOSIS: Clinically severe obesity. OPERATIVE PROCEDURE: Laparoscopic sleeve gastrectomy. ESTIMATED BLOOD LOSS: Less than 20 mL. IV FLUIDS: Crystalloids. SPECIMEN: Portion of stomach. DRAINS: None. COMPLICATIONS: None. COUNTS: Instrument, needle, and sponge counts correct. DESCRIPTION OF PROCEDURE: The patient was brought to the operating room, placed on the table supine. Sequential compression devices were placed on both lower extremities and general anesthesia was administered. The abdomen was prepped and draped in the usual sterile fashion. She received appropriate intravenous antibiotics and time-out was performed. Local anesthetic was infiltrated into the skin and soft tissue prior to make each incision. Entry to the abdomen was through a left upper quadrant incision accommodating a 5 mm optical trocar. After accessing the peritoneal cavity, carbon dioxide was insufflated to a pressure of 15 mmHg. Under direct visualization, 5 mm trocar was placed in the left upper quadrant laterally. 12 mm bladeless trocars were placed in the supraumbilical midline and in the right upper quadrant. A Tara liver retractor was placed percutaneously in the subxiphoid position and used to elevate the left lobe of the liver. The gastric anatomy appeared normal. Pylorus was identified. 5 cm proximal to this on the greater curvature, skeletonization was begun with the LigaSure and the freeing of the greater curvature was completed all the way to the gastroesophageal junction. There were no adhesions within the lesser sac. After completely mobilizing the stomach in this fashion, the sleeve gastrectomy was performed over a 40-Zimbabwean bougie using a series of Endo KRISTEL stapler cartridges; these were purple cartridges with reinforcement. After completing the sleeve gastrectomy, the specimen was placed into a retrieval bag and retrieved through the right upper quadrant port site. This site was then closed with 0 Vicryl using the Endoclose. The inspection revealed hemostasis to be excellent. Tara liver retractor and bougie were removed. Carbon dioxide was released and ports were removed under direct visualization. The skin incisions were closed with 4-0 Monocryl in subcuticular fashion, and Steri- Strips and dressings were applied. The patient tolerated the procedure well, and was extubated and transferred to Recovery in stable condition. [id number]/[facility] #: [id number] MTDD
[2018-11-04] MEDS: Lactated Ringers 1000 ML Bag* 1,000 ML IV SCH ×2 (01:13→08:20)
[2018-11-04] MEDS: Ketorolac INJ* 30 MG/ML 1 ML VIAL IV PRN ×3 (02:12→17:47)
[2018-11-04] MEDS: Metoclopramide IV* 5 MG/ML 2 ML VIAL IV PRN (02:18)
[2018-11-04] MEDS: Heparin VIAL(*) 5000 UNITS/ML VIAL (FIVE THOUSAND) SUBCUT SCH ×3 (05:52→22:04)
[2018-11-04] MEDS: Famotidine IV* 10 MG/ML 2 ML (20 mg) IV SLOW PU SCH ×2 (08:21→20:44)
--- NOTE | 2018-11-04 08:55 | PN ---
Progress Note - Progress Note Date of Service: 11/04/18 SOAP: Subjective: Had a bad night due to nausea and dry heaves. Better currently with no N/V. Pain controlled. Walked last night and this AM. Objective: Vital Signs Temp 98.2 F 11/04/18 07:25 Pulse 73 11/04/18 07:25 Resp 16 11/04/18 08:30 BP 120/58 11/04/18 07:25 Pulse Ox 98 11/04/18 08:30 Gen: NAD Abd: incisions c/d/i no erythema; soft and tender in RUQ incision. Intake & Output 11/03/18 11/04/18 11/04/18 18:59 06:59 18:59 Intake Total 1400 990 Output Total 2625 Balance 1400 -1635 Weight 244 lb Intake: IV Fluids 1400 990 LR 1400 990 Oral 0 Output: Urine 2625 Other: # Bowel Movements 0 Assessment: POD#1 s/p LSG. Plan: Clears. Ambulate. Home AM if doing well.
[2018-11-04] MEDS: HYDROmorphone INJ1* 1 MG/ML SYRINGE IV SLOW PU PRN ×3 (13:13→22:08)
[2018-11-04] MEDS: D5W 1/2 NS KCl 20 Meq 1000 ML* 1,000 ML IV SCH (18:14)
[2018-11-05] MEDS: D5W 1/2 NS KCl 20 Meq 1000 ML* 1,000 ML IV SCH (02:35)
[2018-11-05] MEDS: Ketorolac INJ* 30 MG/ML 1 ML VIAL IV PRN (04:33)
[2018-11-05] MEDS: Heparin VIAL(*) 5000 UNITS/ML VIAL (FIVE THOUSAND) SUBCUT SCH (05:57)
[2018-11-05 07:30] VITALS: BP 147/67
--- NOTE | 2018-11-05 08:12 | PN ---
Progress Note - Progress Note Date of Service: 11/05/18 SOAP: Subjective: Flori po well. No N/V. Pain in RUQ incision. Objective: Vital Signs Temp 97.9 F 11/05/18 07:30 Pulse 61 11/05/18 07:30 Resp 14 11/05/18 07:30 BP 147/67 11/05/18 07:30 Pulse Ox 98 11/05/18 07:30 Gen: NAD, walking Abd: incisions c/d/i; no erythema; soft; tender in RUQ. Intake & Output 11/04/18 11/05/18 11/05/18 18:59 06:59 18:59 Intake Total 460 1610 Output Total 200 300 Balance 260 1310 Intake: IV Fluids 280 980 D5W 1/2 NS 20 meq KCL 980 LR 280 Oral 180 630 Output: Urine 200 300 Other: # Bowel Movements 0 Assessment: POD#2 s/p LSG. Doing well. Plan: D/C home.
[2018-11-05] MEDS ORDERED: HYDROcodone/ACET. 7.5/325 LIQ* 15 ML UDC PO PRN (08:25)
[2018-11-05] MEDS: Famotidine IV* 10 MG/ML 2 ML (20 mg) IV SLOW PU SCH (08:43)
--- NOTE | 2018-11-05 12:30 | DS ---
AMENDED REPORT NOW INCLUDES DESIGNATED COSIGNER CC: Dr. Godwin Cheney * DISCHARGE SUMMARY: DATE OF ADMISSION: 11/03/18. DATE OF DISCHARGE: 11/05/18, . ATTENDING SURGEON: Brayden Campbell MD.* (DICTATED BY KIRA VILLALBA NP) HOSPITAL COURSE: Please refer to admission history and physical for admission details. The patient was taken to the operating room on 11/03/18 and underwent laparoscopic sleeve gastrectomy by Dr. Campbell. She had an uneventful postoperative course and required minimal pain medication and was able to meet the criteria for oral intake of bariatric clear liquids. She was ambulating in the halls and using her Inspiron. She was seen earlier this morning by Dr. Campbell and myself and she has met criteria for discharge. PHYSICAL EXAMINATION: General: Well appearing, in no acute distress. Vital Signs: Afebrile, stable. O2 saturation on room air 98%. Lungs: Breath sounds bilaterally clear and equal. Heart: Regular rate and rhythm. No murmurs or rubs appreciated. Abdomen: Laparoscopic port sites are intact with Steri-Strips; no drainage from the port sites. No surrounding erythema; active bowel sounds and the abdomen is soft with appropriate incisional tenderness. Skin: Warm, dry and intact. Extremities: Nontender calves. IMPRESSION: Status post laparoscopic sleeve gastrectomy, doing extremely well. CONDITION: Stable for discharge. PLAN: Discharge home today. Instructions were reviewed with the patient. She has a followup appointment at [facility] next week with Dr. Campbell. She has a prescription for Lortab Elixir as needed and she may use kyrd-yut-[id number] liquid Tylenol for mild pain. All of her questions were answered. TIME SPENT: 30 minutes with greater than 50% in [id number], physical examination and patient education. KIRA VILLALBA NP [id number]/[facility] #: [id number] MTDD
[2018-11-06] MEDS ORDERED: Scopolamine PATCH Remove* 1 NOTE MISC PATCH OFF ONE (06:00)
== END 2018-11-05 11:50 | disposition home or self-care (01) | DRG 403 ==
LOC: OR 12:28 → SSU 18:14
PROVIDERS: ADMIT Surgery; ATTEND Surgery
PROC: 0DB64Z3 Excision of Stomach, Percutaneous Endoscopic Approach, Vertical (ICD-10-PCS; principal; 2018-11-03 14:00)
DX: E66.01 Morbid (severe) obesity due to excess calories (principal); R11.0 Nausea; F41.9 Anxiety disorder, unspecified; F32.9 Major depressive disorder, single episode, unspecified; E78.5 Hyperlipidemia, unspecified; M19.90 Unspecified osteoarthritis, unspecified site; E55.9 Vitamin D deficiency, unspecified; Z87.442 Personal history of urinary calculi; Z72.89 Other problems related to lifestyle; Z68.41 Body mass index [BMI] 40.0-44.9, adult
CPT/HCPCS: 81025; 88307; A9270-GY; J0690; J1100; J1170; J1240; J1644; J1885; J2250; J2405; J2704; J2710; J2765; J3010; J3490

== ENCOUNTER 2018-11-13 15:58 | Emergency (ER) | payer OTHER ==
[2018-11-13 18:45] LABS: ABS Basophils 0.1 10^3/ul (0-0.2); ABS Eosinophils 0.2 10^3/ul (0-0.6); ABS Lymphocytes 3.3 10^3/ul (1.0-4.8); ABS Monocytes 0.5 10^3/ul (0-0.8); ABS Neutrophils 5.4 10^3/ul (1.5-7.7); Eosinophil % 2.5 %; Hematocrit 43 % (35-47); Lymphocyte % 34.9 %; Mean Corpuscular HGB Conc 33 g/dL (31-36); Mean Corpuscular Hemoglobin 28 pg (27-31); Mean Corpuscular Volume 85 fL (80-97); Mean Platelet Volume 9.3 fL (7.4-10.4); Nucleated Red Blood Cells % 0.1; Platelet Count 321 10^3/uL (150-450); Red Blood Count 5.02 10^6 /uL (3.70-4.87); Red Cell Distribution Width 14 % (10-15); White Blood Count 9.6 10^3/uL (3.5-10.8)
[2018-11-13 18:57] LABS: ALT 31 U/L (7-52); AST 23 U/L (13-39); Albumin 4.6 g/dL (3.2-5.2); Albumin/Globulin Ratio 1.3 (1-3); Alkaline Phosphatase 72 U/L (34-104); Anion Gap 10 mmol/L (2-11); BUN/Creatinine Ratio 17.9 (8-20); Blood Urea Nitrogen 15 mg/dL (6-24); C Reactive Protein 17.48 mg/L (<8.01); CO2 Carbon Dioxide 25 mmol/L (22-32); Calcium 10.1 mg/dL (8.6-10.3); Chloride 101 mmol/L (101-111); EGFR African American 96.3 (>60); EGFR Non-African American 79.6 (>60); Globulin 3.6 g/dL (2-4); Glucose 123 mg/dL (70-100); Potassium 3.8 mmol/L (3.5-5.0); Sodium 136 mmol/L (135-145); Total Protein 8.2 g/dL (6.4-8.9)
[2018-11-13 19:03] LABS: HCG Pregnancy < 0.60 mIU/mL
[2018-11-13] MEDS ORDERED: Thiamine IV* 100 MG, Folic Acid IV* 1 MG, Multiple Vitamin IV ADULT* 10 ML in NS 0.9% 1... IV ONE (19:19)
[2018-11-13] MEDS ORDERED: NS 0.9% 1000 ML** 1,000 ML IV ONE (19:19)
--- NOTE | 2018-11-13 20:27 | ED ---
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 She mentions that she underwent gastric sleeve surgery 10 days ago on 11/03/2018 and was advised by Dr. Land to come to the ED for fluids. She has been feeling weak for the past couple of days and reports frequent pain in the main surgical incision wound located at her RUQ, generalized pain across her abdomen, nausea, feeling dehydrated, and difficulty with drinking fluids. Abdominal pain is noted to be aggravated by swallowing. She rates her pain a 7/ 10 in severity and currently takes pain medication at home, which alleviates some of her discomfort. She has Hx of (x2), renal disease, and nephrolithiasis (right kidney) with stent. - History of Current Complaint Chief Complaint: EDWeakness Time Seen by Provider: 11/13/18 19:08 Stated Complaint: DEHYDRATED PER PT Hx Obtained From: Patient Hx Last Menstrual Period: no period in 6 months states double cycle Onset/Duration: Started Hours Ago, Still Present Timing: Intermittent Pain Intensity: 7 Location of Pain: Diffuse, RUQ - At gastric sleeve surgical incision site. Associated Signs and Symptoms: Positive: Weakness, Nausea, Abdominal Pain, Other : - Dehydration and difficulty drinking fluids. Aggravating Factor(s): Swallowing Alleviating Factor(s): Medication - Additional Pertinent History Primary Care Physician: THANH - Allergy/Home Medications Allergies/Adverse Reactions: Allergies Allergy/AdvReac Type Severity Reaction Status Date / Time No Known Allergies Allergy Verified 11/13/18 16:04 Home Medications: Home Medications HYDROcodone/ACET. 7.5/325 LIQ* [Lortab Elixir 7.5/325 per 15 ml *] 15 ml PO Q6H PRN 11/13/18 [History Confirmed 11/13/18] Omeprazole 20 mg PO DAILY 11/13/18 [History Confirmed 11/13/18] PMH/Surg Hx/FS Hx/Imm Hx Endocrine/Hematology History: Denies: Hx Anticoagulant Therapy, Hx Diabetes, Hx Thyroid Disease Cardiovascular History: Denies: Hx Aneurysm, Hx Hypertension Respiratory History: Denies: Hx Asthma, Hx Chronic Obstructive Pulmonary Disease (COPD), Other Respiratory Problems/Disorders GI History: Denies: Hx Cirrhosis, Hx Crohn's Disease, Hx Diverticulosis, Hx Gall Bladder Disease, Hx Gastroesophageal Reflux Disease, Hx Gastrointestinal Bleed, Hx Hiatal Hernia, Hx Irritable Bowel, Hx Ulcer History: Reports: Hx Kidney Infection - 2012, Hx Kidney Stones - RIGHT, Other Problems/Disorders - hx of kidney stones with stent/stent removed 06/12 Denies: Hx Renal Disease Musculoskeletal History: Denies: Hx Arthritis, Hx Back Problems, Hx Fibromyalgia, Hx Orthopedic Injury , Hx Osteoporosis, Other Musculoskeletal History Sensory History: Reports: Hx Contacts or Glasses - glasses Denies: Hx Hearing Aid Opthamlomology History: Reports: Hx Contacts or Glasses - glasses Psychiatric History: Reports: Hx Anxiety, Hx Depression - Surgical History Surgery Procedure, Year, and Place: tubes in ears as a child, CSECTION x2. Kidney stent 2017 with 8 mm stone Hx Anesthesia Reactions: No - Immunization History Date of Tetanus Vaccine: unknown Date of Influenza Vaccine: NO Infectious Disease History: No Infectious Disease History: Denies: Hx Clostridium Difficile, Hx Hepatitis, Hx Human Immunodeficiency Virus (HIV), Hx of Known/Suspected MRSA, Hx Shingles, Hx Tuberculosis, Hx Known/ Suspected VRE, Hx Known/Suspected VRSA, History Other Infectious Disease, Traveled Outside the [place] in Last 30 Days - Family History Known Family History: Positive: None, Cardiac Disease, Hypertension, Diabetes, Other - Ovarian cysts - Social History Alcohol Use: Occasionally Alcohol Amount: 2-3/week Hx Substance Use: No Substance Use Type: Reports: None Hx Tobacco Use: No Smoking Status (MU): Never Smoked Tobacco Type: Cigarettes Have You Smoked in the Last Year: No Review of Systems Positive: Other - Postive - Weakness, dehydration, difficulty drinking Positive: Abdominal Pain - Generalized and at gastric sleeve incision wound site., Nausea All Other Systems Reviewed And Are Negative: Yes Physical Exam - Summary Physical Exam Summary: VITAL SIGNS: Reviewed. GENERAL: Patient is a well-developed and nourished female who is lying comfortable in the stretcher. Patient is not in any acute respiratory distress. Morbidly obese. HEAD AND FACE: No signs of trauma. No ecchymosis, hematomas or skull depressions. No sinus tenderness. EYES: PERRLA, EOMI x 2, No injected conjunctiva, no nystagmus. EARS: Hearing grossly intact. Ear canals and tympanic membranes are within normal limits. MOUTH: Oropharynx within normal limits. NECK: Supple, trachea is midline, no adenopathy, no JVD, no carotid bruit, no c- spine tenderness, neck with full ROM CHEST: Symmetric, no tenderness at palpation LUNGS: Clear to auscultation bilaterally. No wheezing or crackles. CVS: Regular rate and rhythm, S1 and S2 present, no murmurs or gallops appreciated. ABDOMEN: Soft, non-tender. No signs of distention. No rebound no guarding, and no masses palpated. Bowel sounds are normal. EXTREMITIES: FROM in all major joints, no edema, no cyanosis or clubbing. NEURO: Alert and oriented x 3. No acute neurological deficits. Speech is normal and follows commands. SKIN: Dry and warm Triage Information Reviewed: Yes Vital Signs On Initial Exam: Initial Vitals Temp Pulse Resp BP Pulse Ox 97.9 F 96 20 120/92 97 11/13/18 16:01 11/13/18 16:01 11/13/18 16:01 11/13/18 16:01 11/13/18 16:01 Vital Signs Reviewed: Yes Diagnostics - Vital Signs Vital Signs Temp Pulse Resp BP Pulse Ox 11/13/18 19:48 16 11/13/18 17:59 97.7 F 98 18 111/75 99 11/13/18 16:01 97.9 F 96 20 120/92 97 - Laboratory Lab Results: Lab Results 11/13/18 11/13/18 Range/Units 18:31 18:31 WBC 9.6 (3.5-10.8) 10^3/uL RBC 5.02 H (3.70-4.87) 10^6 /uL Hgb 14.0 (12.0-16.0) g/dL Hct 43 (35-47) % MCV 85 (80-97) fL MCH 28 (27-31) pg MCHC 33 (31-36) g/dL RDW 14 (10-15) % Plt Count 321 (150-450) 10^3/uL MPV 9.3 (7.4-10.4) fL Neut % (Auto) 56.5 % Lymph % (Auto) 34.9 % Summers % (Auto) 5.2 % Eos % (Auto) 2.5 % Baso % (Auto) 0.9 % Absolute Neuts (auto) 5.4 (1.5-7.7) 10^3/ul Absolute Lymphs (auto) 3.3 (1.0-4.8) 10^3/ul Absolute Monos (auto) 0.5 (0-0.8) 10^3/ul Absolute Eos (auto) 0.2 (0-0.6) 10^3/ul Absolute Basos (auto) 0.1 (0-0.2) 10^3/ul Absolute Nucleated RBC 0.0 10^3/ul Nucleated RBC % 0.1 Sodium 136 (135-145) mmol/L Potassium 3.8 (3.5-5.0) mmol/L Chloride 101 (101-111) mmol/L Carbon Dioxide 25 (22-32) mmol/L Anion Gap 10 (2-11) mmol/L BUN 15 (6-24) mg/dL Creatinine 0.84 (0.51-0.95) mg/dL Est GFR ( Amer) 96.3 (>60) Est GFR (Non-Af Amer) 79.6 (>60) BUN/Creatinine Ratio 17.9 (8-20) Glucose 123 H (70-100) mg/dL Calcium 10.1 (8.6-10.3) mg/dL Total Bilirubin 0.50 (0.2-1.0) mg/dL AST 23 (13-39) U/L ALT 31 (7-52) U/L Alkaline Phosphatase 72 (34-104) U/L C-Reactive Protein 17.48 H (<8.01) mg/L Total Protein 8.2 (6.4-8.9) g/dL Albumin 4.6 (3.2-5.2) g/dL Globulin 3.6 (2-4) g/dL Albumin/Globulin Ratio 1.3 (1-3) Beta HCG, Quant < 0.60 mIU/mL Result Diagrams: 11/13/18 18:31 11/13/18 18:31 Lab Statement: Any lab studies that have been ordered have been reviewed, and results considered in the medical decision making process. GIGU Course/Dx - Course Course Of Treatment: The pt is a 32 yr old female presenting to the [facility] c/o weakness, abd pain, and dehydration. She reports feeling weak for the past several days after her gastric sleeve surgery 10 days ago, and reports frequent pain at the main surgical incision wound located in her RUQ, generalized pain across her abdomen, nausea, feeling dehydrated, and difficulty with drinking fluids. Test results with no significant abnormalities expect for RBC @ 5.02, Glucose @ 123, CRP @ 17.48. In the ED course the patient was given 1011.2 mls of thiamine 100mg/ folic acid 1mg/ multiple vitamin 10ml in NaCl @500mls/hr IV and NS. Patient was discharged to home and instructed to follow up with PCP within three days. - Diagnoses Provider Diagnoses: Dehydration Discharge - Sign-Out/Discharge Documenting (check all that apply): Patient Departure - discharge Patient Received Moderate/Deep Sedation with Procedure: No - Discharge Plan Condition: Stable Disposition: HOME Patient Education Materials: Dehydration (ED) Referrals: Godwin Cheney MD [Primary Care Provider] - 3 Days Additional Instructions: Return to ED for any new or worsening symptoms. Follow-up with your primary care physician within 3 days. - Attestation Statements Document Initiated by Scribe: Yes Documenting Scribe: Arnol Vieira Provider For Whom Scribe is Documenting (Include Credential): Rand Ritter MD Scribe Attestation: IArnol, scribed for Rand Ritter MD on 11/13/18 at 2318. Status of Scribe Document: Ready
[2018-11-13 23:01] VITALS: BP 110/45
== END 2018-11-13 23:00 | disposition home or self-care (01) ==
LOC: ED 15:58
DX: E86.0 Dehydration (principal); Z79.899 Other long term (current) drug therapy
CPT/HCPCS: 36415; 80053; 84702; 85025; 86140; 99284; J3411

== ENCOUNTER 2018-12-31 12:31 | Emergency (ER) | payer OTHER ==
--- OUTSIDE RECORDS SUMMARY | 2018-12-31 12:37 | XMS REPORT ---
:1985 Author Organization [facility] Address [address] [place] [address] Care Team Providers Name Role Phone Godwin Cheney Unavailable Unavailable PROBLEMS Type Condition ICD9-CM Code [id number] Onset Condition SNOMED Code Code Dates Status Problem Anxiety F41.9 Active 80394044 Problem Psoriasis L40.9 Active 0688083 Problem Primary M17.11 Active 991194854 osteoarthritis of right knee Problem High blood E78.00 Active 42088956 cholesterol level Problem Bipolar I disorder F31.9 Active 110767214 Problem Renal stones N20.0 Active 00923912 ALLERGIES No Information ENCOUNTERS Encounter Location Date Diagnosis [address] Oct, [place] [address], [place] [address] [facility] [address] [facility] [place], [place] [address], [place] [address], [place] [address] Jul, [place] [address], [place] [address], [place], [place] ( [place] [address] 35.0-35.9 in adult Z68.35 ; Other obesity due to excess calories E66.09 ; Anxiety F41.9 ; Bipolar I disorder F31.9 ; Right flank pain R10.9 and Psoriasis L40.9 [facility] Jun, [facility] [place] [address] [place] [id number] [facility] Jan, Health [place] [address] Dave Cervantes [address] Sep, Health Medical [place], [place] [address] [facility] [address] [facility] Sep, [place] [address] [place] [facility] [address] [place], [place] [address] Dave Cervantes [address] [place], [place] [address] [place] [facility] [address] [place], [place] [address] [facility] [address] [place], [place], Anxiety F41.9 ; [place] [address] pain R10.9 ; Obesity (BMI 30-39.9) E66.9 and BMI 39.0-39.9,adult Z68.39 Dave Cervantes [address] Jun, [place] [address] Dave Cervantes [address] May, Health Medical [place], [place] [address] [place] [facility] [address] [place] [address] [place] [facility] [address] [place] [address] [place] [facility] [address] [place] [address] [place] [facility] [address] [place] [address] [place] [facility] [address] [place] [address] [place] [facility] [address] [place] [address] [place] [facility] [address] [place] [address] [place] [facility] [address] [place], [place] [address] [place] [facility] [address] [place], [place], [place]10 [place] [address] [place] [facility] [address] [place], [place], Acute pyelonephritis N10 ; [place] [address] Anxiety F41.9 and Obesity (BMI 30-39.9) E66.9 [place] [facility] [address] [place], [place] [address] [place], [place], Nausea R11.0 ; [place] [address] unspecified etiology J02.9 ; Anxiety F41.9 and Obesity (BMI 30-39.9) E66.[address] Jun, [place] [address] May, [place] [address] [place] [address] May, [place] [address] Apr, [place] [address] [place] [address] [place], [place] [address] [place], [place], [place] [address] reading Z11.1 ; Encounter for immunization Z23 and Immunity status testing Z01.[address] [place], [place], [place] [address] examination Z02.0 and Anxiety F41.[address] [place], [place], Knee pain, [place] 719.46 [place] [address] Bipolar affective disorder, depressed [address] [place], [place] [address] [place], [place] [address] [place], [place], [place] [address] pulmonary tuberculosis V74.1 ; Obesity (BMI 30-39.9) 278.00 and Bipolar affective disorder, depressed 296.50 IMMUNIZATIONS No Known Immunizations SOCIAL HISTORY Never Assessed REASON FOR REFERRAL FUNCTIONAL STATUS PLAN OF CARE VITAL SIGNS MEDICATIONS No Known Medications PROCEDURES No Known procedures RESULTS No Results REASON FOR VISIT Needs call back from our Provider Insurance Providers [facility] Member Patient Patient Patient Patient Patient Subscriber Subscriber Subscriber Group Insurance Plan Plan Plan Plan ID Relationship Address Phone Name Date of ID Name Date of No Type Insurance Insurance Insurance Coverage to Subscriber Address Phone Name Dates Medicaid [address] [phone] Medicaid self Nastassj [id number] Wrap [facility] [address] [place] [address] Tonny Puentes [phone] [place] self Nastassj [id number] Medicaid [place] [address] [place] [address] Medical Tonny Pettylis [phone] Jaxon self Nastassj [id number] Medicaid [id number] Medicaid [facility] [address] [email or web address] MEDICAL (GENERAL) HISTORY Type Description Date Medical History anxiety and depression Medical History obesity Medical History Renal calculi Surgical History tubes in ears age 14 Surgical History x2 Surgical History RIght sided renal stent placed/removed 2016 Hospitalization History kidney infection 01/2012 Hospitalization History none
--- OUTSIDE RECORDS SUMMARY | 2018-12-31 12:37 | XMS REPORT ---
:1985 Author Organization [facility] Address [address] [place] [address] Care Team Providers Name Role Phone Godwin Cheney Unavailable Unavailable PROBLEMS Type Condition ICD9-CM Code [id number] Onset Condition SNOMED Code Code Dates Status Problem Anxiety F41.9 Active 60312489 Problem Psoriasis L40.9 Active 9782934 Problem Primary M17.11 Active 102112120 osteoarthritis of right knee Problem High blood E78.00 Active 84272358 cholesterol level Problem Bipolar I disorder F31.9 Active 946936507 Problem Renal stones N20.0 Active 62805394 ALLERGIES No Information ENCOUNTERS Encounter Location Date Diagnosis [address] Oct, [place] [address], [place] [address] [facility] [address] [facility] [place], [place] [address], [place] [address], [place] [address] Jul, [place] [address], [place] [address], [place], [place] ( [place]) [place] [address] 35.0-35.9 in adult Z68.35 ; Other obesity due to excess calories E66.09 ; Anxiety F41.9 ; Bipolar I disorder F31.9 ; Right flank pain R10.9 and Psoriasis L40.9 [facility] Jun, [facility] [place] [address] [place] [address] [facility] Jan, Health [place] [address] Dave Cervantes [address] Sep, Health Medical [place], [place] [address] [facility] [address] [facility] Sep, [place] [address] [place] [facility] [address] [place], [place] [address] Dave Cervantes [address] [place], [place] [address] [place] [facility] [address] [place], [place] [address] [facility] [address] [place], [place], Anxiety F41.9 ; [place] [address] pain R10.9 ; Obesity (BMI 30-39.9) E66.9 and BMI 39.0-39.9,adult Z68.39 Dave Cervantes [address] Jun, [place] [address] Dave Cervantes [address] May, Health Medical [place], [place] [address] [place] [facility] [address] [place], [place] [address] [place] [facility] [address] [place] [address] [place] [facility] [address] [place] [address] [place] [facility] [address] [place] [address] [place] [facility] [address] [place] [address] [place] [facility] [address] [place] [address] [place] [facility] [address] [place], [place] [address] [place] [facility] [address] [place], [place] [address] [place] [facility] [address] [place], [place], [place]10 [place] [address] [place] [facility] [address] [place], [place], Acute pyelonephritis N10 ; [place] [address] Anxiety F41.9 and Obesity (BMI 30-39.9) E66.9 [place] [facility] Health [address] [place], [place] [address], [place], Nausea R11.0 ; [place] [address] unspecified etiology J02.9 ; Anxiety F41.9 and Obesity (BMI 30-39.9) E66.[address] Jun, [place] [address] May, [place] [address] [place] [address] May, [place] [address] [place] [address] Apr, [place] [address] [place] [address], [place] [address], [place], [place] [address] reading Z11.1 ; Encounter for immunization Z23 and Immunity status testing Z01.[address], [place], [place] [address] examination Z02.0 and Anxiety F41.[address], [place], Knee pain, [place] 719.46 [place] [address] Bipolar affective disorder, depressed 296.[address] Jul, [place] [address] [place], [place] [address] [place], Apr, [place] [address] pulmonary tuberculosis V74.1 ; Obesity (BMI 30-39.9) 278.00 and Bipolar affective disorder, depressed 296.50 IMMUNIZATIONS No Known Immunizations SOCIAL HISTORY Never Assessed REASON FOR REFERRAL FUNCTIONAL STATUS PLAN OF CARE VITAL SIGNS MEDICATIONS Medication Instructions Dosage Frequency Start End Duration Status Date Date Cyred 0.15-30 Orally Once a 1 tablet 24h Active MG-MCG day Omeprazole 20 Orally Once a 1 capsule 24h Active MG day Ondansetron 4 Orally every 4 1 tablet on 4h Active MG hrs the tongue and allow to dissolve as needed Hydrocodone-Mainor Orally every 6 1 tablet as 6h Active taminophen hrs needed 7.5-325 MG PROCEDURES No Known procedures RESULTS No Results REASON FOR VISIT Medication update Insurance Providers [facility] Member Patient Patient Patient Patient Patient Subscriber Subscriber Subscriber Group Insurance Plan Plan Plan Plan ID Relationship Address Phone Name Date of ID Name Date of No Type Insurance Insurance Insurance Coverage to Subscriber Address Phone Name Dates Jaxon [phone] Jaxon self Nastassj [id number] Medicaid [id number] Medicaid [employer] [address] [employer] Medicaid [address] [phone] Medicaid self Nastassj [id number] Wrap [facility] [address] [address] [place] Jaxon [phone] Jaxon self Nastassj [id number] Medicaid [place] 47 Medicaid [facility] [address] Medical Tonny MEDICAL (GENERAL) HISTORY Type Description Date Medical History anxiety and depression Medical History obesity Medical History Renal calculi Surgical History tubes in ears age 14 Surgical History x2 Surgical History RIght sided renal stent placed/removed 2016 Hospitalization History kidney infection 01/2012 Hospitalization History none
--- OUTSIDE RECORDS SUMMARY | 2018-12-31 12:37 | XMS REPORT | Continuity of Care Document ---
:1985 External Reference #:[id number] Author Name Rolando Martínez M.D. (transmitted by agent of provider Yuki Vargas) Address [address] [place] [address] Care Team Providers Name Role Phone Godwin Cheney MD - Family Medicine Care Team Information Manager Spanish [phone] Problems Description No Information Available Social History Type Date Description Comments Sex Unknown ETOH Use Denies alcohol use Tobacco Use Start: Unknown Patient has never smoked Recreational Drug Use Never Used Drugs Smoking Status Reviewed: 12/07/18 Patient has never smoked Exercise Type/Frequency Exercises sporadically Allergies, Adverse Reactions, Alerts Description No Known Drug Allergies Medications Active Medications SIG Qnty Indications Ordering Provider Date Cyred Unknown 0.15-30mg-mcg Tablets Omeprazole 1 by mouth every Unknown 20mg Capsules DR day Immunizations Description No Information Available Vital Signs Date Vital Result Comment 12/07/2018 8:09am Height 65 inches 5'5" Weight 228.00 lb Heart Rate 80 /min BP Systolic 118 mmHg BP Diastolic 68 mmHg Respiratory Rate 12 /min Pain Level 5 BMI (Body Mass Index) 37.9 kg/m2 08/26/2018 7:19am Height 65 inches 5'5" Weight 247.00 lb Heart Rate 90 /min BP Systolic Sitting 120 mmHg Rue large cuff BP Diastolic Sitting 82 mmHg Rue large cuff Respiratory Rate 16 /min O2 % BldC Oximetry 98 % BMI (Body Mass Index) 41.1 kg/m2 Neck Circumference in inches 15 Results Test Date Facility Test Result H/L Range Note Laboratory test 11/03/2018 [facility] Surgical SEE RESULT [address] Pathology BELOW [place] [id number] [phone] CBC No Diff 10/27/2018 [facility] White Blood 9.1 10^3/uL Normal 3.5-10.[address] [place] [address] [phone] Red Blood Count 4.64 10^6/uL Normal 3.70-4.87 Hemoglobin 13.1 g/dL Normal 12.0-16.0 Hematocrit 39 % Normal 35-47 Mean Corpuscular Volume 85 fL Normal 80-97 Mean Corpuscular Hemoglobin 28 pg Normal 27-31 Mean Corpuscular HGB Conc 33 g/dL Normal 31-36 Red Cell Distribution Width 13 % Normal 10-15 Platelet Count 311 10^3/uL Normal 150-450 Mean Platelet Volume 9.0 fL Normal 7.4-10.4 Basic Metabolic 10/27/2018 [facility] Sodium 136 mmol/L Normal 135-[address] [place] [address] [phone] Potassium 4.0 mmol/L Normal 3.5-5.0 Chloride 104 mmol/L Normal 101-111 Co2 Carbon Dioxide 25 mmol/L Normal 22-32 Anion Gap 7 mmol/L Normal 2-11 Glucose 84 mg/dL Normal 70-100 Blood Urea Nitrogen 14 mg/dL Normal 6-24 Creatinine 0.67 mg/dL Normal 0.51-0.95 BUN/Creatinine Ratio 20.9 High 8-20 Calcium 9.9 mg/dL Normal 8.6-10.3 Egfr Non- 103.3 >60 Egfr 125.0 >60 2 Poc Urinalysis 08/02/2018 [facility] Poc Glucose, Negative Negative [address] [place] [address] [phone] Poc Bilirubin, Urine Negative Negative Poc Ketone, Urine Negative Negative Poc Specific [place], Urine 1.015 Normal 1.010-1.030 Poc Blood, Urine Negative Negative Poc pH, Urine 6.5 Normal 5-9 Poc Protein, Urine Negative Negative Poc Urobilinogen, Urine 0.2 Negative Poc Nitrite, Urine Negative Negative Poc Leukocytes, Urine Negative Negative Poc Color, Urine Yellow Poc Clarity, Urine Clear 3 1 SEE RESULT BELOW Name: SRIRAM GIBBS : [address]: Brayden Campbell MD Acct: [id number] Unit: [id number] AGE: 32 Location: [place] [address]- Re11/03/18 Dis: 11/05/18 SEX: F Status: DIS IN SPEC: [id number] ERIC: 11/03/18-[address]: Brayden Campbell MD REQ: [id number] RECD: 11/03/18 STATUS: SOUT _ ORDERED: LEVEL 5 FINAL DIAGNOSIS Portion of stomach, resection: -- Portion of stomach with fundic-type mucosa with passive vascular congestion. PRE-OPERATIVE DIAGNOSIS Morbid obesity GROSS DESCRIPTION The specimen is received in formalin labeled, Portion of Stomach, and consists of a 17.3 by up to 4.7 x 2.9 cm portion of gastric tissue. The serosa is smooth to wrinkled to focally shaggy cortez-white with multiple superficial defects, scant adherent yellow fat and a prominent staple line. The mucosa is focally disrupted. The intact mucosa is glistening cortez-white to red with normal rugal folds. Received separately in the same container is a 7.9 x 6.1 by up to 2.0 cm aggregate of cortez-brown irregular mucosal tissue fragments admixed with red-brown blood clot. Seam Finisher sections, one cassette. Signed by and Reported on: Deric Luis MD 03/16 1306 END OF REPORT DEPARTMENT OF PATHOLOGY, [address] [place] [address] Deric Luis M.D. Director [facility] # [id number] 2 Because ethnic data is not always readily available, this report includes an eGFR for both -Americans and non- Americans. The National Kidney Disease Education Program (NKDEP) does not endorse the use of the MDRD equation for patients that are not between the ages of 18 and 70, are , have extremes of body size, muscle mass, or nutritional status, or are non- or non-. According to the National Kidney Foundation, irrespective of diagnosis, the stage of the disease is based on the level of kidney function: Stage Description GFR(mL/min/1.73 m(2)) 1 Kidney damage with normal or decreased GFR 90 2 Kidney damage with mild decrease in GFR 60-89 3 Moderate decrease in GFR 30-59 4 Severe decrease in GFR 15-29 5 Kidney failure <15 (or dialysis) 3 Machine Clothing Replacer: [id number] Procedures Date Code Description Status 09/14/2018 77116 Polysomnography Sleep Staging 4+ Parameters Completed 09/04/2018 89138 Sleep Study Unattended,HRT Rate,Oxygen Sat,Resp Completed Effort/Airflow Medical Devices Description No Information Available Encounters Type Date Location Provider Dx Diagnosis Office Visit 08/26/2018 Pulmonology And Sleep Sanam Benavidez MD R06.83 Snoring 7:[facility] G47.00 Insomnia, unspecified E66.9 Obesity, unspecified Z68.41 Body mass index (BMI) 40.0-44.9, adult Assessments Date Code Description Provider 12/07/2018 M17.11 Unilateral primary osteoarthritis, right knee Rolando Martínez M.D. 09/14/2018 R06.83 Snoring Sanam Benavidez MD 09/14/2018 R40.0 Somnolence Sanam Benavidez MD 09/04/2018 R06.83 Snoring Sanam Benavidez MD 09/04/2018 G47.00 Insomnia, unspecified Sanam Benavidez MD 09/04/2018 E66.9 Obesity, unspecified Sanam Benavidez MD 09/04/2018 Z68.41 Body mass index (BMI) 40.0-44.9, adult Sanam Benavidez MD 08/26/2018 R06.83 Snoring Sanam Benavidez MD 08/26/2018 G47.00 Insomnia, unspecified Sanam Benavidez MD 08/26/2018 E66.9 Obesity, unspecified Sanam Benavidez MD 08/26/2018 Z68.41 Body mass index (BMI) 40.0-44.9, adult Sanam Benavidez MD Plan of Treatment Future Appointment(s):01/06/2019 8:15 am - Rolando Martínez M.D. at [facility]12/07/2018 - Rolando Martínez M.D.M17.11 Unilateral primary osteoarthritis, right kneeNew Therapy:Physical Therapy Functional Status Description No Information Available Mental Status Description No Information Available Referrals Description No Information Available
[2018-12-31 12:45] VITALS: BP 119/65
--- NOTE | 2018-12-31 13:28 | UC ---
Back Pain HPI - HPI Summary HPI Summary: 33-year-old female presents with 2 week history of intermittent right lower back /flank pain. Pain is non-radiating. Has occasionally woken her from sleep. Denies alleviating or aggravating symptoms. Has tried acetaminophen and naproxen without relief. Presents to UC today stating the the pain has worsened. Associated with some nausea. Denies fever, chills, abdominal pain, vomiting, diarrhea, dysuria, frequency, urgency, hematuria, vaginal discharge, or dyspareunia. Of note, patient has history of a 6-7 mm right renal calculi with hydronephrosis in 06/03/2016 that was removed by laser lithotripsy followed by stent placement by Dr. Spencer. She has had multiple ED visits since that time including 08/24/16, 07/06/16, 05/04/17, 07/05/17, and 07/31/[address] and a negative renal US respectively. She was most recently seen at this facility on 08/02/2018 for left flank pain. She had a negative UA and CT at that time but was treated with a 7 day course levofloxacin and provided a short course of hydrocodone-acetaminophen and ondansetron. She currently has no follow up with urology or her PCP scheduled. - History of Current Complaint Chief Complaint: UCBackPain Stated Complaint: SEVERE RIGHT ABDOMINAL PAIN Time Seen by Provider: 12/31/18 12:34 Hx Obtained From: Patient Hx Last Menstrual Period: no period in 6 months states double cycle Pain Intensity: 9 - Allergies/Home Medications Allergies/Adverse Reactions: Allergies Allergy/AdvReac Type Severity Reaction Status Date / Time No Known Allergies Allergy Verified 12/31/18 12:45 PMH/Surg Hx/FS Hx/Imm Hx GI/ History: Gastroesophageal Reflux, Kidney Stones Other History Of: Negative For: Anticoagulant Therapy - Surgical History Surgical History: Yes Surgery Procedure, Year, and Place: tubes in ears as a child, CSECTION x2. Kidney stent 2017 with 8 mm stone - Family History Known Family History: Positive: None, Cardiac Disease, Hypertension, Diabetes, Other - Ovarian cysts - Social History Occupation: Employed Full-time Lives: With Family Alcohol Use: Rare Alcohol Amount: 2-3/week Substance Use Type: None Smoking Status (MU): Never Smoked Tobacco Type: Cigarettes Have You Smoked in the Last Year: No Household Exposure Type: Cigarettes - Immunization History Most Recent Influenza Vaccination: unknown Most Recent Tetanus Shot: 05/30/16 Most Recent Pneumonia Vaccination: NA Review of Systems All Other Systems Reviewed And Are Negative: Yes Constitutional: Negative: Fever, Chills Skin: Negative: Rash Respiratory: Positive: Negative Cardiovascular: Positive: Negative Gastrointestinal: Negative: Abdominal Pain, Vomiting, Nausea Genitourinary: Negative: Dysuria, Hematuria Motor: Negative: Weakness Neurovascular: Negative: Decreased Sensation Musculoskeletal: Positive: Other: - Back pain Neurological: Positive: Negative Is Patient Immunocompromised?: No Physical Exam - Summary Physical Exam Summary: GENERAL APPEARANCE: Alert and cooperative obese female who appears to be in no acute distress. CARDIAC: Normal S1 and S2. No S3, S4 or murmurs. Rhythm is regular. There is no peripheral edema, cyanosis or pallor. Extremities are warm and well perfused. Capillary refill is less than 2 seconds. Peripheral pulses intact. LUNGS: Clear to auscultation without rales, rhonchi, wheezing or diminished breath sounds. ABDOMEN: Positive bowel sounds. Soft, nondistended, nontender. No guarding or rebound. No masses or hepatosplenomegally. MUSKULOSKELETAL: ROM intact to all extremities. No joint erythema or tenderness. Normal muscular development. Normal gait. BACK: Examination of the spine reveals normal no midline spinal deformity or tenderness. Reproducible pain in the right lumbar paraspinous soft tissues without muscular spasm. NEUROLOGICAL:Strength and sensation symmetric and intact to lower extremities. Reflexes 2+. SKIN: Skin normal color, texture and turgor with no lesions or eruptions. Triage Information Reviewed: Yes Vital Signs: Initial Vital Signs Temp 97.8 F 12/31/18 12:39 Pulse 83 12/31/18 12:39 Resp 18 12/31/18 12:39 BP 119/65 12/31/18 12:39 Pulse Ox 98 12/31/18 12:39 Vital Signs Reviewed: Yes Back Pain Course/Dx - Course Course Of Treatment: 33-year-old female presents with 2 week history of intermittent right lower back /flank pain. Pain is non-radiating. Has occasionally woken her from sleep. Denies alleviating or aggravating symptoms. Has tried acetaminophen and naproxen without relief. Presents to today stating the the pain has worsened. Associated with some nausea. Denies fever, chills, abdominal pain, vomiting, diarrhea, dysuria, frequency, urgency, hematuria, vaginal discharge, or dyspareunia. Of note, patient has history of a 6-7 mm right renal calculi with hydronephrosis in 06/03/2016 that was removed by laser lithotripsy followed by stent placement by Dr. Spencer. She has had multiple ED visits since that time including 08/24/16, 07/06/16, 05/04/17, 07/05/17, and 07/31/[address] and a negative renal US respectively. She was most recently seen at this facility on 08/02/2018 for left flank pain. She had a negative UA and CT at that time but was treated with a 7 day course levofloxacin and provided a short course of hydrocodone-acetaminophen and ondansetron. She currently has no follow up with urology or her PCP scheduled. Afebrile. Vital signs stable. Patient had no midline spinal deformity or tenderness, reproducible pain in the right lumbar paraspinous soft tissues without muscular spasm, soft non-tender abdomen with positive bowel sounds, normal strength and sensation to lower extremities with 2+ reflexes, and otherwise unremarkable exam. POC UA was normal. Urine negative. Reviewed results with the patient. Discuss that pain appears to be musculoskeletal in origin however cannot fully rule out other causes at this time although renal calculi or pyelonephritis are unlikely based on the urine results. Will treat conservatively for acute low back pain. Patient is to use acetaminophen according to directions for pain as NSAIDs are contraindicated due to her bariatric surgery. I have given her a prescription a prescription for cyclobenzaprine 10 mg 1 tab every 8 hours as needed for severe pain or spasm. Recommend heat therapy. She is to follow up with her PCP in 1-2 days for recheck of symptoms. Anticipatory guidance and warning symptoms requiring immediate medical attention in the ED were reviewed with patient. Verbalizes understanding and agrees with POC. - Differential Dx/Diagnosis Differential Diagnosis/HQI/PQRI: Herniated Disc, Renal Colic, Strain, Other - pyelonephritis, gall bladder disease, ovarian cyst, appendicitis Provider Diagnosis: Acute right-sided low back pain Discharge ED - Sign-Out/Discharge Documenting (check all that apply): Patient Departure All imaging exams completed and their final reports reviewed: No Studies - Discharge Plan Condition: Stable Disposition: HOME Prescriptions: Cyclobenzaprine HCl 10 mg PO Q8HR PRN #15 tablet PRN Reason: Spasms - Back Patient Education Materials: Acute Low Back Pain (ED) Referrals: Godwin Cheney MD [Primary Care Provider] - 1 Day Additional Instructions: The urine test performed in the clinic today was negative for blood or infection. Your urine test was negative. Because your pain is reproducible with palpation I suspect that it is musculoskeletal in origin however I cannot rule out other possible causes although kidney stone or infection are unlikely based on your urine test results. Take acetaminophen according to directions as needed for pain. Use cyclobenzaprine (Flexeril) 10 mg 1 tab every 8 hours as needed for severe pain or spasm. This medication will cause drowsiness therefore do not take and drive or operate machinery. Apply a heating pad to the affected area for 15-20 min at least 4 times a day to help with pain and to relax muscles. Follow up with your primary care provider in 1-2 days for a recheck of your symptoms. Seek immediate medical attention in the emergency room if you have fever greater than 100.5 F, worsening back pain despite taking pain medication, severe abdominal pain, persistent vomiting, blood in your vomit or stools, or any worsening of symptoms. - Billing Disposition and Condition Condition: STABLE Disposition: Home
== END 2018-12-31 13:40 | disposition home or self-care (01) ==
LOC: UCEAST 12:31
DX: M54.5 Low back pain (principal); K21.9 Gastro-esophageal reflux disease without esophagitis
CPT/HCPCS: 81003; 84702; 99212; G0463

== ENCOUNTER 2019-01-01 18:26 | Emergency (ER) | payer OTHER ==
[2019-01-01] MEDS ORDERED: HYDROcodone/ACETAMIN 5-325 MG* 1 TAB PO ONE (18:51)
[2019-01-01 19:19] LABS: Rapid Strep Molecular Negative (Negative)
--- NOTE | 2019-01-01 19:21 | ED ---
Throat Pain/Nasal Congestion - HPI Summary HPI Summary: 33-year-old female presents to the emergency room with complaints of onset of fever, headache, and sore throat today. Daughter has had upper respiratory symptoms for the past 4 days and she states that her coworkers also had similar symptoms. Patient was seen by myself at the [facility] yesterday for complaints of right lower back/flank pain (see note). States her symptoms have not improved however patient has not yet filled her prescription that was sent for her yesterday. Patient has provided some additional history at this time that was not previously offered stating she had a sexual encounter with a new partner approximately one week ago that included both vaginal and oral intercourse and she is requesting testing for gonorrhea and chlamydia at this time. She is declining any further STI testing. Denies ear pain, nasal congestion, dysphagia, chest pain, shortness of breath, cough, abdominal pain, vomiting, diarrhea, dysuria, frequency, urgency, hematuria, vaginal discharge, or dyspareunia. - History of Current Complaint Chief Complaint: EDFever Time Seen by Provider: 01/01/19 18:41 Hx Obtained From: Patient - Allergies/Home Medications Allergies/Adverse Reactions: Allergies Allergy/AdvReac Type Severity Reaction Status Date / Time No Known Allergies Allergy Verified 01/01/19 18:37 PMH/Surg Hx/FS Hx/Imm Hx Endocrine/Hematology History: Denies: Hx Anticoagulant Therapy, Hx Diabetes, Hx Thyroid Disease Cardiovascular History: Denies: Hx Aneurysm, Hx Hypertension Respiratory History: Denies: Hx Asthma, Hx Chronic Obstructive Pulmonary Disease (COPD), Other Respiratory Problems/Disorders GI History: Reports: Hx Gastroesophageal Reflux Disease Denies: Hx Cirrhosis, Hx Crohn's Disease, Hx Diverticulosis, Hx Gall Bladder Disease, Hx Gastrointestinal Bleed, Hx Hiatal Hernia, Hx Irritable Bowel, Hx Ulcer History: Reports: Hx Kidney Infection - 2012, Hx Kidney Stones - RIGHT, Other Problems/Disorders - hx of kidney stones with stent/stent removed 06/12 Denies: Hx Renal Disease Musculoskeletal History: Denies: Hx Arthritis, Hx Back Problems, Hx Fibromyalgia, Hx Orthopedic Injury , Hx Osteoporosis, Other Musculoskeletal History Sensory History: Reports: Hx Contacts or Glasses - glasses Denies: Hx Hearing Aid Opthamlomology History: Reports: Hx Contacts or Glasses - glasses Psychiatric History: Reports: Hx Anxiety, Hx Depression - Surgical History Surgery Procedure, Year, and Place: tubes in ears as a child, CSECTION x2. Kidney stent 2017 with 8 mm stone Hx Anesthesia Reactions: No - Immunization History Date of Tetanus Vaccine: unknown Date of Influenza Vaccine: NO Infectious Disease History: No Infectious Disease History: Denies: Hx Clostridium Difficile, Hx Hepatitis, Hx Human Immunodeficiency Virus (HIV), Hx of Known/Suspected MRSA, Hx Shingles, Hx Tuberculosis, Hx Known/ Suspected VRE, Hx Known/Suspected VRSA, History Other Infectious Disease, Traveled Outside the [place] in Last 30 Days - Family History Known Family History: Positive: None, Cardiac Disease, Hypertension, Diabetes, Other - Ovarian cysts - Social History Occupation: Employed Full-time Lives: With Family Alcohol Use: Rare Alcohol Amount: 2-3/week Hx Substance Use: No Substance Use Type: Reports: None Hx Tobacco Use: No Smoking Status (MU): Never Smoked Tobacco Type: Cigarettes Have You Smoked in the Last Year: No Review of Systems Positive: Fever, Chills, Fatigue Negative: Drainage, Erythema Positive: Sore Throat Negative: Palpitations, Chest Pain Negative: Shortness Of Breath, Cough Positive: Nausea. Negative: Abdominal Pain, Vomiting, Diarrhea Positive: flank pain. Negative: dysuria, discharge, frequency, hematuria, incontinence, urgency Negative: Arthralgia Negative: Rash Positive: Headache. Negative: Weakness, Paresthesia, Numbness, Syncope, Slurred Speech All Other Systems Reviewed And Are Negative: Yes Physical Exam - Summary Physical Exam Summary: GENERAL APPEARANCE: Allert and cooperative, obese female who appears to be in no acute distress. EYES: Conjunctiva clear. No drainage. EARS: External auditory canals and tympanic membranes clear, hearing grossly intact. NOSE: No nasal discharge. THROAT: Mild pharyngeal erythema. No tonsilar inflammation, swelling, exudate, or lesions. Uvula midline. NECK: Neck supple, non-tender without lymphadenopathy. CARDIAC: Normal S1 and S2. No S3, S4 or murmurs. Rhythm is regular. There is no peripheral edema, cyanosis or pallor. Extremities are warm and well perfused. Capillary refill is less than 2 seconds. Peripheral pulses intact. LUNGS: Clear to auscultation without rales, rhonchi, wheezing or diminished breath sounds. ABDOMEN: Positive bowel sounds. Soft, nondistended, nontender. No guarding or rebound. No masses or hepatosplenomegally. MUSKULOSKELETAL: ROM intact to all extremities. No joint erythema or tenderness. Normal muscular development. Normal gait. BACK: Examination of the spine reveals no midline spinal deformity or tenderness. Tenderness with palpation to the right lumbar paraspinous soft tissues without muscle spasm. SKIN: Skin normal color, texture and turgor with no lesions or eruptions. Triage Information Reviewed: Yes Vital Signs On Initial Exam: Initial Vitals Temp Pulse Resp BP Pulse Ox 101.5 F 120 20 110/84 99 01/01/19 18:33 01/01/19 18:33 01/01/19 18:33 01/01/19 18:33 01/01/19 18:33 Vital Signs Reviewed: Yes Diagnostics - Vital Signs Vital Signs Temp Pulse Resp BP Pulse Ox 01/01/19 18:33 101.5 F 120 20 110/84 99 - Laboratory Lab Results: Lab Results 01/01/19 Range/Units 18:46 Group A Strep Rapid Negative (Negative) Lab Statement: Any lab studies that have been ordered have been reviewed, and results considered in the medical decision making process. EENT Course/Dx - Course Course Of Treatment: 33-year-old female presents to the emergency room with complaints of onset of fever, headache, and sore throat today. Daughter has had upper respiratory symptoms for the past 4 days and she states that her coworkers also had similar symptoms. Patient was seen by myself at the [facility] yesterday for complaints of right lower back/flank pain (see note). States her symptoms have not improved however patient has not yet filled her prescription that was sent for her yesterday. Patient has provided some additional history at this time that was not previously offered stating she had a sexual encounter with a new partner approximately one week ago that included both vaginal and oral intercourse and she is requesting testing for gonorrhea and chlamydia at this time. She is declining any further STI testing. Denies ear pain, nasal congestion, dysphagia, chest pain, shortness of breath, cough, abdominal pain, vomiting, diarrhea, dysuria, frequency, urgency, hematuria, vaginal discharge, or dyspareunia. Patient was febrile with a temp of 101.5 F. she was tachycardic otherwise vital signs stable. Her exam revealed some mild pharyngeal erythema without tonsillar swelling or exudate, her back pain was unchanged from previous, and remainder of her exam was unremarkable. Rapid strep test performed in the emergency room was negative. A throat culture as well as the GC and chlamydia testing are still pending. Patient was informed of these results. Recommending symptomatic treatment for a viral upper respiratory infection. She was given hydrocodoneacetaminophen 5 mg/325 mg 1 tablet here in the ER for her pain and I agreed to send in a short-term prescription for the same for her to use at home. I did discuss with her that the hydrocodoneacetaminophen can cause drowsiness and may be compounded if she also uses the cyclobenzaprine that was previously prescribed to her. She is to follow-up with her primary care provider in next 1-2 days for reevaluation of her back pain. Anticipatory guidance and warning symptoms were reviewed with the patient. Verbalizes understanding and agrees with plan of care. - Differential Diagnoses Differential Diagnoses: Pharyngitis, Sinusitis, Tonsilitis, URI/Bronchitis - Diagnoses Provider Diagnoses: Viral URI Discharge ED - Sign-Out/Discharge Documenting (check all that apply): Patient Departure Patient Received Moderate/Deep Sedation with Procedure: No - Discharge Plan Condition: Stable Disposition: HOME Prescriptions: Hydrocodone/Acetaminophen [Hydrocodone/Acetaminophen 5-325 mg] 1 tab PO Q8HR PRN #9 tab MDD 3 PRN Reason: Pain - Severe Patient Education Materials: Upper Respiratory Infection (ED) Referrals: Godwin Cheney MD [Primary Care Provider] - 1 Day Additional Instructions: Your rapid strep performed in the emergency room today was negative. The other testing that was performed today will not be back for up to 48 hours. We will contact you if any of these tests are positive and will start appropriate treatment. Your history and exam are consistent with a viral upper respiratory infection. Viral infections do not respond to antibiotics and are limited to the treatment of symptoms. Viral infections typically run their course in 7-10 days. Drink plenty of fluids to avoid dehydration especially if you are running any fever. Use a saline rinse kit such as Neti Pot or NeilMed at least twice a day if you develop and pain or pressure in the sinuses. Use fluticasone (Flonase) nasal spray 2 sprays each nostril once daily. Take an over the counter decongestant such as Sudafed if you have any nasal congestion. Take over the counter acetaminophen (Tylenol) according to directions as needed for pain or fever. Take hydrocodone-acetaminophen 5 mg/325 mg 1 tablet every 8 hours as needed for severe pain. Use salt water gargles several times a day if you have a sore throat. You may also use Chloraseptic spray or Cepacol lonzenges according to directions which contain a numbing medication and can provide some temporary relief from your sore throat. Follow up with your primary care provider in 1-2 days for a recheck of your symptoms. Seek immediate medical attention in the emergency room if you have fever greater than 100.5 F despite taking pain medication, have chest pain, difficulty breathing, are unable to swallow, have severe abdominal pain, persist vomiting, or have any worsening of symptoms. - Billing Disposition and Condition Condition: STABLE Disposition: Home - Attestation Statements Provider Attestation: I was available for consult. This patient was seen by the [facility]. The patient was not presented to, seen by, or examined by me. William Funk MD
[2019-01-01 19:50] VITALS: BP 96/65
[2019-01-04 13:34] LABS: Chlamydia trachomatis NAA Negative (Negative); Neisseria gonorrhoeae (GC) NAA Negative (Negative)
== END 2019-01-01 19:49 | disposition home or self-care (01) ==
LOC: ED 18:26
DX: J06.9 Acute upper respiratory infection, unspecified (principal); B34.9 Viral infection, unspecified; K21.9 Gastro-esophageal reflux disease without esophagitis; F41.9 Anxiety disorder, unspecified; F32.9 Major depressive disorder, single episode, unspecified; Z79.899 Other long term (current) drug therapy
CPT/HCPCS: 87070; 87077; 87185; 87491; 87591; 87651; 99282

== ENCOUNTER 2019-01-02 15:44 | Emergency (ER) | payer OTHER ==
--- NOTE | 2019-01-02 16:14 | ED ---
Complex/Multi-Sys Presentation - HPI Summary HPI Summary: This patient is a 33 year old F presenting to ED with a chief complaint of body aches, sore throat, and fever since two days ago. She states she feels like she has been hit by a truck. PSHx of gastric sleeve on 11/03/[address] Campbell. Patient was seen here yesterday for the same symptoms, but states they have worsened. During her visit yesterday, she had a negative strep test. She reports a subjective fever at 102 F around 1400 today. She took Tylenol, and arrives to the ED with a triage temperature of 98.6 F. She also reports taking hydrocodone at 0700 this morning. Patient states she has had 4oz of water in the last 24 hours. Patient states she is not an outdoors person and she does not have a dog. Patient denies abdominal pain, N/V/D, urinary symptoms, cough, rash. The patient rates the pain 10/10 in severity. Symptoms aggravated by nothing. Symptoms alleviated by Tylenol. Patient states she is on control , but had an unprotected encounter last weekend. - History Of Current Complaint Chief Complaint: EDGeneral Time Seen by Provider: 01/02/19 16:02 Hx Obtained From: Patient Onset/Duration: Lasting Days - 2 days ago, Still Present, Worse Since Timing: Constant Severity Currently: Severe Severity Initially: Severe Aggravating Factor(s): Nothing Alleviating Factor(s): Tylenol Associated Signs And Symptoms: Positive: Other - Body aches, sore throat. Negative: rash. Negative: Cough, Nausea, Vomiting, Diarrhea, Abdominal Pain - Allergies/Home Medications Allergies/Adverse Reactions: Allergies Allergy/AdvReac Type Severity Reaction Status Date / Time No Known Allergies Allergy Verified 01/01/19 18:37 PMH/Surg Hx/FS Hx/Imm Hx Endocrine/Hematology History: Denies: Hx Anticoagulant Therapy, Hx Diabetes, Hx Thyroid Disease Cardiovascular History: Denies: Hx Aneurysm, Hx Hypertension Respiratory History: Denies: Hx Asthma, Hx Chronic Obstructive Pulmonary Disease (COPD), Other Respiratory Problems/Disorders GI History: Reports: Hx Gastroesophageal Reflux Disease Denies: Hx Cirrhosis, Hx Crohn's Disease, Hx Diverticulosis, Hx Gall Bladder Disease, Hx Gastrointestinal Bleed, Hx Hiatal Hernia, Hx Irritable Bowel, Hx Ulcer History: Reports: Hx Kidney Infection - 2011, Hx Kidney Stones - RIGHT, Other Problems/Disorders - hx of kidney stones with stent/stent removed 06/12 Denies: Hx Renal Disease Musculoskeletal History: Denies: Hx Arthritis, Hx Back Problems, Hx Fibromyalgia, Hx Orthopedic Injury , Hx Osteoporosis, Other Musculoskeletal History Sensory History: Reports: Hx Contacts or Glasses - glasses Denies: Hx Hearing Aid Opthamlomology History: Reports: Hx Contacts or Glasses - glasses Psychiatric History: Reports: Hx Anxiety, Hx Depression - Surgical History Surgery Procedure, Year, and Place: tubes in ears as a child, CSECTION x2. Kidney stent 2017 with 8 mm stone. Gastric sleeve 11/03/18 Hx Anesthesia Reactions: No - Immunization History Date of Tetanus Vaccine: unknown Date of Influenza Vaccine: NO Infectious Disease History: No Infectious Disease History: Denies: Hx Clostridium Difficile, Hx Hepatitis, Hx Human Immunodeficiency Virus (HIV), Hx of Known/Suspected MRSA, Hx Shingles, Hx Tuberculosis, Hx Known/ Suspected VRE, Hx Known/Suspected VRSA, History Other Infectious Disease, Traveled Outside the [place] in Last 30 Days - Family History Known Family History: Positive: Cardiac Disease, Hypertension, Diabetes, Other - Ovarian cysts - Social History Alcohol Use: Rare Alcohol Amount: 2-3/week Hx Substance Use: No Substance Use Type: Reports: None Hx Tobacco Use: No Smoking Status (MU): Never Smoked Tobacco Have You Smoked in the Last Year: No Review of Systems Positive: Fever Positive: Sore Throat Negative: Cough Negative: Abdominal Pain, Vomiting, Diarrhea, Nausea Negative: burning, dysuria Positive: Arthralgia, Myalgia Negative: Rash All Other Systems Reviewed And Are Negative: Yes Physical Exam - Summary Physical Exam Summary: GENERAL: Patient is a F with generalized malaise who is lying comfortable in the stretcher. Patient is not in any acute respiratory distress. HEAD AND FACE: Normocephalic EYES: PERRLA, EOMI x 2. EARS: Hearing grossly intact. MOUTH: Oropharynx within normal limits. NECK: Supple, trachea is midline, no adenopathy, no JVD, no carotid bruit. CHEST: Symmetric, no tenderness at palpation LUNGS: Clear to auscultation bilaterally. No wheezing or crackles. CVS: Regular rate and rhythm, S1 and S2 present, no murmurs or gallops appreciated. ABDOMEN: Soft, non-tender. Bowel sounds are normal. No abnormal abdominal pulsations. EXTREMITIES: Full ROM in all major joints, no edema, no cyanosis or clubbing. NEURO: Alert and oriented x 3. No acute neurological deficits. Speech is normal and follows commands. SKIN: Dry and warm Triage Information Reviewed: Yes Vital Signs On Initial Exam: Initial Vitals Temp Pulse Resp BP Pulse Ox 98.6 F 97 18 128/92 99 01/02/19 15:47 01/02/19 15:47 01/02/19 15:47 01/02/19 15:47 01/02/19 15:47 Vital Signs Reviewed: Yes Diagnostics - Vital Signs Vital Signs Temp Pulse Resp BP Pulse Ox 01/02/19 15:47 98.6 F 97 18 128/92 99 - Laboratory Result Diagrams: 01/02/19 16:29 01/02/19 16:29 Lab Statement: Any lab studies that have been ordered have been reviewed, and results considered in the medical decision making process. - Radiology CXR Radiology Interpretation Completed By: Radiologist Summary of Radiographic Findings: No evidence for pneumonia. Negative exam. Dr. Adams has reviewed this radiology report. Re-Evaluation - Re-Evaluation First Eval Re-Evaluation Time: 18:14 Comment: Discussed results with patient. Patient reports her throat still feels very sore. Therefore, I will order a CT neck to check for retropharyngeal abscess. Complex Multi-Symp Course/Dx Course Of Treatment: This patient is a 33 year old F presenting to ED with a chief complaint of body aches, sore throat, and fever since two days ago. In the ED course, patient received Decadron, Toradol, Zofran, and fluids. CXR revealed no evidence for pneumonia. Negative exam. Blood work revealed WBC 12.7 , neutrophils 9.7, monocytes 0.9, potassium 3.3, glucose 119, CRP 153.29, ESR 20. Upon re-evaluation, patient is still reporting significant pain with swallowing. Given her elevated inflammatory markers, I will order a CT neck to check to r/o retropharyngeal abscess . Patient will be signed-out to Dr. Arian Ball from Dr. Katia Adams at 1900 on 01/02/19 [address] shift change pending CT neck results and disposition. - Diagnoses Provider Diagnoses: Malaise, Sore throat, Pharyngitis Discharge ED - Sign-Out/Discharge Documenting (check all that apply): Sign-Out Patient Signing out patient TO: Arian Ball Patient Received Moderate/Deep Sedation with Procedure: No - Discharge Plan Referrals: Godwin Cheney MD [Primary Care Provider] - - Attestation Statements Document Initiated by Chanellibe: Yes Documenting Scribe: Eamon James Provider For Whom Scribe is Documenting (Include Credential): Katia Adams MD Scribe Attestation: I, Eamon James, scribed for Katia Adams MD on 01/02/19 at 1851. Scribe Documentation Reviewed: Yes Provider Attestation: The documentation as recorded by the chanellibEamon nelson accurately reflects the service I personally performed and the decisions made by me, Katia Adams MD Status of Scribe Document: Viewed
[2019-01-02] MEDS ORDERED: NS 0.9% 1000 ML** 1,000 ML IV ONE ×2 (16:16→18:16)
[2019-01-02] MEDS ORDERED: Ondansetron INJ* 2 MG/ML VIAL IV ONE (16:16)
[2019-01-02] MEDS ORDERED: Dexamethasone IV* 4 MG/ML 1 ML (4 MG) IM ONE (16:19)
[2019-01-02] MEDS ORDERED: Ketorolac INJ* 30 MG/ML 1 ML VIAL IV PUSH ONE (16:19)
[2019-01-02 16:40] LABS: ABS Lymphocytes 2.1 10^3/ul (1.0-4.8); ABS Monocytes 0.9 10^3/ul (0-0.8); ABS Neutrophils 9.7 10^3/ul (1.5-7.7); Eosinophil % 0.3 %; Hematocrit 36 % (35-47); Lymphocyte % 16.8 %; Mean Corpuscular HGB Conc 33 g/dL (31-36); Mean Corpuscular Hemoglobin 28 pg (27-31); Mean Corpuscular Volume 84 fL (80-97); Mean Platelet Volume 9.8 fL (7.4-10.4); Platelet Count 189 10^3/uL (150-450); Red Blood Count 4.27 10^6 /uL (3.70-4.87); Red Cell Distribution Width 13 % (10-15); White Blood Count 12.7 10^3/uL (3.5-10.8)
[2019-01-02 16:42] LABS: Influenza A Molecular NEGATIVE (Negative); Influenza B Molecular NEGATIVE (Negative)
[2019-01-02 16:55] LABS: Activated Partial Thrombo Time 29.4 seconds (26.0-38.0); INR 1.07 (0.82-1.09)
[2019-01-02 17:08] LABS: ALT 18 U/L (7-52); AST 15 U/L (13-39); Albumin/Globulin Ratio 1.3 (1-3); Alkaline Phosphatase 64 U/L (34-104); Anion Gap 8 mmol/L (2-11); BUN/Creatinine Ratio 15.8 (8-20); Blood Urea Nitrogen 12 mg/dL (6-24); C Reactive Protein 153.29 mg/L (<8.01); CO2 Carbon Dioxide 22 mmol/L (22-32); Calcium 8.9 mg/dL (8.6-10.3); Chloride 106 mmol/L (101-111); EGFR African American 107.4 (>60); EGFR Non-African American 88.8 (>60); Glucose 119 mg/dL (70-100); Potassium 3.3 mmol/L (3.5-5.0); Sodium 136 mmol/L (135-145)
[2019-01-02 17:14] LABS: HCG Pregnancy < 0.60 mIU/mL
[2019-01-02] MEDS ORDERED: Potassium Chlor TAB* 20 MEQ TAB.ER PO ONE (17:21)
[2019-01-02 17:47] LABS: Erythrocyte Sed Rate 20 mm/Hr (0-19)
[2019-01-02] MEDS ORDERED: fentaNYL* 50 MCG/ML 2 ML VIAL (100 MCG VIAL) IV SLOW PU ONE (18:16)
[2019-01-02] MEDS ORDERED: Iohexol 300* (CONTRAST) 10 ML SDV IV ONE (18:22)
[2019-01-02 18:56] LABS: Urine Appearance Cloudy; Urine Bilirubin Negative (Negative); Urine Blood Negative (Negative); Urine Color Yellow; Urine Glucose Negative (Negative); Urine Ketones Trace (Negative); Urine Nitrite Negative (Negative); Urine Protein Negative (Negative); Urine Specific Gravity 1.027 (1.010-1.030); Urine Urobilinogen Negative (Negative)
--- NOTE | 2019-01-02 19:02 | ED ---
Progress - Progress Note Progress Note: This patient was signed out from Dr. Adams to Dr. Ball at shift change at 1900 on 01/02/19, pending disposition, awaiting Neck CT. Neck CT reveals, per radiologist, IMPRESSION: 1. No retropharyngeal or other abscess is seen. 2. Shotty bilateral cervical lymphadenopathy, nonspecific, most likely reactive. 3. The airway is widely patent. The patients condition is stable and will be discharged to home with Dx of Pharyngitis. - Results/Orders Results/Orders: Neck CT reveals, per radiologist, IMPRESSION: 1. No retropharyngeal or other abscess is seen. 2. Shotty bilateral cervical lymphadenopathy, nonspecific, most likely reactive. 3. The airway is widely patent. ED physician has reviewed this radiology report. Re-Evaluation - Re-Evaluation First Eval Re-Evaluation Time: 19:49 Comment: Discussed results and plan for discharge with pt. Course/Dx - Course Course Of Treatment: This patient was signed out from Dr. Adams to Dr. Ball at shift change at 1900 on 01/02/19, pending disposition, awaiting Neck CT. Neck CT reveals, per radiologist, IMPRESSION: 1. No retropharyngeal or other abscess is seen. 2. Shotty bilateral cervical lymphadenopathy, nonspecific, most likely reactive. 3. The airway is widely patent. Discussed results and plan for discharge with pt. The patients condition is stable and will be discharged to home with Dx of Pharyngitis. - Diagnoses Provider Diagnoses: Pharyngitis Discharge ED - Sign-Out/Discharge Documenting (check all that apply): Patient Departure - Discharge Patient Received Moderate/Deep Sedation with Procedure: No - Discharge Plan Condition: Good Disposition: HOME Prescriptions: Cefdinir cap* [Cefdinir 300 MG cap (NF)] 300 mg PO BID #20 cap Patient Education Materials: Pharyngitis (ED) Referrals: Gen Woodard MD [Medical Doctor] - 3 Days (if not improving) - Billing Disposition and Condition Condition: GOOD Disposition: Home - Attestation Statements Document Initiated by Scribe: Yes Documenting Scribe: Justyna Garcia Provider For Whom Scribe is Documenting (Include Credential): Arian Ball MD Scribe Attestation: Justyna Kemp, arielaibed for Arian Ball MD on 01/02/19 at 2109. Scribe Documentation Reviewed: Yes Provider Attestation: The documentation as recorded by the scribe, Justyna Garcia accurately reflects the service I personally performed and the decisions made by me, Arian Ball MD Status of Sanjay Document: Viewed
[2019-01-02] MEDS ORDERED: Cefdinir cap* 300 MG CAP PO SCH (20:00)
[2019-01-02 20:09] VITALS: BP 111/67
[2019-01-07 16:27] LABS: B garinii/B afzelii PCR Negative (Negative); B mayonii PCR Negative (Negative)
== END 2019-01-02 20:08 | disposition home or self-care (01) ==
LOC: ED 15:44
DX: R53.81 Other malaise (principal); J02.9 Acute pharyngitis, unspecified; K21.9 Gastro-esophageal reflux disease without esophagitis; F41.9 Anxiety disorder, unspecified; F32.9 Major depressive disorder, single episode, unspecified; Z79.899 Other long term (current) drug therapy
CPT/HCPCS: 36415; 70491; 71045; 80053; 81003; 83605; 84484; 84702; 85025; 85610; 85652; 85730; 86140; 86308; 87040; 87476; 87798; 96361; 96372; 96374; 96375; 99283; A9270-GY; J1100; J2405; J3010; Q9967

== ENCOUNTER 2019-06-11 12:30 | Emergency (ER) | payer OTHER ==
--- NOTE | 2019-06-11 14:02 | ED ---
Psychiatric Complaint - HPI Summary HPI Summary: 33-year-old female with a significant past medical history of anxiety and depression presents to the emergency department today complaining of suicidal ideation. She states she has had significantly increased stress in her life recently which is causing her to feel this way. Patient reports being at work and feeling overwhelmed and explaining to her boss that she has thoughts of suicide. Her boss suggested she come to the emergency department for evaluation. Patient informed the triage nurse that she is having suicidal thoughts without a plan with no homicidal thoughts. Patient denies past history of suicidal thoughts or actions. Patient currently is not complaining of any other symptoms and has no physical pain, fever, chest pain, abdominal pain, shortness of breath, rash, nausea, vomiting, diarrhea. - History Of Current Complaint Chief Complaint: EDSuicidal Time Seen by Provider: 06/11/19 12:42 Hx Obtained From: Patient Hx Last Menstrual Period: no period in 6 months states double cycle Onset/Duration: Gradual Onset Timing: Constant Severity Initially: Moderate Severity Currently: Moderate Character: Depressed, Anxious Aggravating Factor(s): Recent Stress Has Suicidal: Reports: Thoughts. Denies: With A Plan, Demonstrates Gesture, Has Prior Attempt(s) Has Homicidal: Denies: Thoughts, With A Plan, Demonstrates Gesture, Has Prior Attempt(s) - Allergies/Home Medications Allergies/Adverse Reactions: Allergies Allergy/AdvReac Type Severity Reaction Status Date / Time No Known Allergies Allergy Verified 06/11/19 12:37 PMH/Surg Hx/FS Hx/Imm Hx Endocrine/Hematology History: Denies: Hx Anticoagulant Therapy, Hx Diabetes, Hx Thyroid Disease Cardiovascular History: Denies: Hx Aneurysm, Hx Hypertension, Hx Pacemaker/ICD Respiratory History: Denies: Hx Asthma, Hx Chronic Obstructive Pulmonary Disease (COPD), Other Respiratory Problems/Disorders GI History: Reports: Hx Gastroesophageal Reflux Disease Denies: Hx Cirrhosis, Hx Crohn's Disease, Hx Diverticulosis, Hx Gall Bladder Disease, Hx Gastrointestinal Bleed, Hx Hiatal Hernia, Hx Irritable Bowel, Hx Ulcer History: Reports: Hx Kidney Infection - 2012, Hx Kidney Stones - RIGHT, Other Problems/Disorders - hx of kidney stones with stent/stent removed 06/12 Denies: Hx Renal Disease Musculoskeletal History: Denies: Hx Arthritis, Hx Back Problems, Hx Fibromyalgia, Hx Orthopedic Injury , Hx Osteoporosis, Other Musculoskeletal History Sensory History: Reports: Hx Contacts or Glasses - glasses Denies: Hx Hearing Aid Opthamlomology History: Reports: Hx Contacts or Glasses - glasses Psychiatric History: Reports: Hx Anxiety, Hx Depression Denies: Hx Panic Disorder - Surgical History Surgery Procedure, Year, and Place: TUBES EARS, 2 C-SECTIONS,. 2019 GASTRIC SLEEVE Hx Anesthesia Reactions: No - Immunization History Date of Tetanus Vaccine: unknown Date of Influenza Vaccine: NO Infectious Disease History: No Infectious Disease History: Denies: Hx Clostridium Difficile, Hx Hepatitis, Hx Human Immunodeficiency Virus (HIV), Hx of Known/Suspected MRSA, Hx Shingles, Hx Tuberculosis, Hx Known/ Suspected VRE, Hx Known/Suspected VRSA, History Other Infectious Disease, Traveled Outside the [place] in Last 30 Days - Family History Known Family History: Positive: Cardiac Disease, Hypertension, Diabetes, Other - Ovarian cysts - Social History Alcohol Use: Occasionally Alcohol Amount: 2-3/week Hx Substance Use: No Substance Use Type: Reports: None Hx Tobacco Use: No Smoking Status (MU): Never Smoked Tobacco Have You Smoked in the Last Year: No Review of Systems Constitutional: Negative Eyes: Negative ENT: Negative Cardiovascular: Negative Respiratory: Negative Gastrointestinal: Negative Genitourinary: Negative Musculoskeletal: Negative Skin: Negative Neurological/Mental Status: Negative Psychological: Normal All Other Systems Reviewed And Are Negative: Yes Physical Exam Triage Information Reviewed: Yes Vital Signs On Initial Exam: Initial Vitals Temp Pulse Resp BP Pulse Ox 97.9 F 97 15 150/91 100 06/11/19 12:33 06/11/19 12:33 06/11/19 12:33 06/11/19 12:33 06/11/19 12:33 Vital Signs Reviewed: Yes Appearance: Positive: Well-Appearing, No Pain Distress, Well-Nourished Skin: Positive: Warm, Skin Color Reflects Adequate Perfusion Eyes: Positive: EOMI, NAOMY ENT: Positive: Hearing grossly normal Respiratory/Lung Sounds: Positive: Clear to Auscultation, Breath Sounds Present Cardiovascular: Positive: RRR, S1, S2 Abdomen Description: Positive: Nontender, Soft Bowel Sounds: Positive: Present Musculoskeletal: Positive: Strength/ROM Intact Neurological: Positive: Sensory/Motor Intact, Alert, Oriented to Person Place, Time, Normal Gait, Facial Symmetry, Speech Normal Psychiatric: Positive: Normal, Affect/Mood Appropriate AVPU Assessment: Alert Procedures - Sedation Patient Received Moderate/Deep Sedation with Procedure: No Diagnostics - Vital Signs Vital Signs Temp Pulse Resp BP Pulse Ox 06/11/19 12:33 97.9 F 97 15 150/91 100 - Laboratory Lab Statement: Any lab studies that have been ordered have been reviewed, and results considered in the medical decision making process. Course/Dx - Course Course Of Treatment: Patient was evaluated in the emergency department today for suicidal ideation. Patient was seen and examined their vital signs are stable and they were afebrile. Patient was distressed after learning she was unable to leave the emergency department after stating she had suicidal ideation to hospital staff although she entered the emergency department voluntarily. Patient became very agitated. Upon arrival to emergency department the patient was placed in a safe room, placed under observation and changed into hospital scrubs. Their belongings were collected and placed in a locked box. Laboratory studies were ordered for mental health clearance including urinalysis and toxicology. Labs were waived in the evaluation of this patient, and she was cleared for mental health evaluation and disposition by psychiatric services. Patient signed out to AUBRIE Cha at 1730. - Differential Dx/Clinical Impression Differential Diagnosis/HQI/PQRI: Positive: Acute Psychosis, Anxiety, Depression , Suicide Attempt, Suicidal Ideation, Suicidal Gesture Provider Diagnosis: Suicidal ideation Discharge ED - Sign-Out/Discharge Documenting (check all that apply): Sign-Out Patient Signing out patient TO: Teresa Basurto Receiving patient FROM: Asa Dong - Discharge Plan Referrals: Godwin Cheney MD [Primary Care Provider] -
--- OUTSIDE RECORDS SUMMARY | 2019-06-11 14:53 | XMS REPORT | Continuity of Care Document ---
:1985 Author Organization [facility] Address [address] [place] [address] Phone Care Team Providers Name Role Phone Katie Laguerre NP Unavailable Unavailable Allergies, Adverse Reactions, Alerts Substance Reaction Status No Known Allergies Active Medications Medication Instructions Dosage Effective Dates Status Comments (start - stop) metronidazole 500 mg take 1 tablet by 500 MG - Active tablet oral route 2 times every day for 7 days Cyred 0.15 mg-0.03 mg 1 PO daily - Active tablet metronidazole 500 mg take 1 tablet by 500 MG - No Longer tablet oral route 2 times Active every day for 7 days Problems Condition Effective Dates Clinical Status Comments (start - stop) Encounter for surveillance of contraceptive pills Acute vaginitis Encounter for surveillance of contraceptive pills Encounter for surveillance of contraceptive pills Encounter for surveillance of contraceptive pills Encntr screen for infections w sexl mode of transmiss Pelvic and perineal pain Candidiasis of vulva and vagina Encounter for screening for oth infec/parastc diseases Unsp abnormal cytological findings in specimens from vagina Pruritus vulvae Encounter for surveillance of contraceptive pills Encounter for surveillance of contraceptive pills Encntr screen for infections w sexl mode of transmiss Adverse effect of oral contraceptives, initial encounter Encntr screen for infections w sexl mode of transmiss Acute vaginitis Encounter for oth general - cnsl and advice on contraception Human immunodeficiency virus - [HIV] counseling Body mass index (BMI) 39.0-39.9, adult Encounter for oth screening for malignant neoplasm of breast Encntr screen for infections w sexl mode of transmiss Candidiasis of vulva and vagina Encounter for surveillance of contraceptive pills Encntr for director of materials exam (general) (routine) w abnormal findings Acute vaginitis Human immunodeficiency virus - [HIV] counseling Candidiasis of vulva and vagina Encounter for oth general cnsl and advice on contraception Encntr screen for infections w sexl mode of transmiss Encounter for screening for - human immunodeficiency virus Encounter for surveillance of contraceptive pills Encntr screen for infections w sexl mode of transmiss Contact w and exposure to infect w a sexl mode of transmiss Human immunodeficiency virus - [HIV] counseling Candidiasis of vulva and vagina Encounter for surveillance of contraceptive pills Encntr screen for infections w sexl mode of transmiss Encounter for surveillance of contraceptive pills Encntr screen for infections w sexl mode of transmiss Contact w and exposure to infect w a sexl mode of transmiss Dysuria Encntr screen for infections w sexl mode of transmiss Noninflammatory disorder of vagina, unspecified Encounter for test, result negative Noninflammatory disorder of vagina, unspecified Encntr screen for infections w sexl mode of transmiss Encounter for initial prescription of contraceptive pills Encntr screen for infections w sexl mode of transmiss PT, Negative BV STI Screening PT, Negative Anemia, Screening Dysmenorrhea PT, Negative STI Screening BV Anemia, Screening AB W/O Comp, Complete Anemia, Screening AB W/O Comp, Unspecified BV PT, Negative Yeast-vulvovaginal BV OCP, Start STI Screening BV STI Exposure Yeast-vulvovaginal STI Screening Yeast-vulvovaginal STI Exposure Yeast-vulvovaginal PT, Negative 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 LB Bacterial vaginosis Active Recurrent, chronic. Can call for rx to be sent to pharmacy w/o exam. Procedures Procedure Date No information Results Test Name Date and Time Measure Units Reference Range Abnormal Flag Status Comments No information Advance Directives Directive Yes / No Effective Date File Name No information Encounters Encounter Practice Location Reason(s) Diagnoses Date Provider Providers Description For Visit Copied on Encounter [facility] Katie. [address] [place], [place], [place], [place], [address] [address]. [facility] tel:[phone] [place], [address], [place] tel:[phone] [facility] [place] Amina. [address] , [place], [place], [place], [address] [address], [place]. [facility] tel:[phone] [place], [address], [place] tel:[phone] [facility] Nov- White Alexa. [facility] [address] 9 [facility], [place], [address], [address] [place], [address], [place] tel:[phone] [facility] Encounter for White Alexa. [facility] surveillance of [address] Of Greater contraceptive 9 [place], [place], [place], [address], [address] [place], [address], [place] tel:[phone] [facility] Encounter for M[facility]s [facility] surveillance of Lina. [address] contraceptive [address] [place], [place], [place], [address] [address], [place]. [facility] tel:[phone] [place], [address], [place] tel:[phone] [facility] Encounter for White Alexa. [facility] surveillance of [address] Of Greater contraceptive 8 [facility], [place], [place], [address], [address] [place], [address], [place] tel:[phone] [facility] Encounter for Dec- White Alexa. [facility] surveillance of [address] contrace[address], [place], [place], [place], [address], [address] [place] [place], [place], [address], [place] tel:[phone] [facility] Encntr screen Hemmer Referring Parenthood [place] for infections [facility] Provider: Of [facility] sexl mode of [address]. [address] [place], transmissPelvic W [address], [place] [address] and perineal [place], [place], [place], , New painCandidiasis [address]. [address] [place], [place], of vulva and tel:[phone] [address], [address], [place] vaginaEncounter [address] [place], tel:[phone] for screening [address]. [id number] for oth tel:[phone] infec/parastc [phone] diseasesUnsp abnormal cytological findings in specimens from vaginaPruritus vulvae [facility] Encounter for Sep- Grupo Liu. [facility] surveillance of [address] Of Greater contraceptive 8 , [place], [place], [place], [address], [address] [place] [place], [place], [address], [place] tel:[phone] [facility] Encounter for Jun- Grupo Liu. Referring [facility] surveillance of [address] Provider: Of [facility] contraceptive 8 , [place], [facility] [place] [place], [address], White, [address] screen for [place]. [address] , [place] infections [place] , [place], [address]. [address], [place] transmissAdvers tel:[phone] e effect of [phone] oral contraceptives, initial encounter [facility] Encntr screen P[facility]te [facility]erring [facility] for infections . [address] Provider: Of [facility] sexl mode of [address], Katie [place], transmissAcute [place], [place], Parete, [address] vaginitis [address], New tel:[phone] St, [place], [place], [address] [place], [address]. [address], [place] tel:[phone] tel:[phone] [facility] Encounter for Grupo Liu. Referring Parenthood [place] ot general [address] Provider: Of [facility] cnsl and advice [address] St, [place], [place], [address], Parete, [address] contraceptionHu [place]. [address], [place] St, [place], [place], [place], [place], [address]. [address], [place] y virus [HIV] tel:[phone] tel:[phone] counselingBody [phone] mass index (BMI) 39.0-39.9, adultEncounter for oth screening for malignant neoplasm of breastEncntr screen for infections w sexl mode of transmissCandid iasis of vulva and vaginaEncounter for surveillance of contraceptive pillsEncntr for director of materials exam (general) (routine) w abnormal findingsAcute vaginitis [facility] Human Hem[facility] [place] immunodeficienc [place] Of [facility] y virus [HIV] 8 [address]. [address] [place], counselingCandi [address], [address] diasis of vulva [place], [place], [place], [place] [address]. [place], vaginaEncounter tel:[phone], [place] for oth general [address] tel:[phone] cnsl and advice [phone] on contraceptionEn cntr screen for infections w sexl mode of transmissEncoun ter for screening for human immunodeficienc y virus [facility] Encounter for Grupo Liu. Parenthood [place] surveillance of [address] Of [facility] contraceptive [address], [place], [place], [place], [address], [address] screen for [place]. St, [place] infections [place], [place] [address], [place] transmissContac tel:[phone] t w and [phone] exposure to infect w a sexl mode of transmissHuman immunodeficienc y virus [HIV] counselingCandi diasis of vulva and vagina [facility] Encounter for 0 Fabianoaelidis Referring Parenthood [place] surveillance of Ingrid. [address] Provider: Of [facility] contraceptive [address], Ingrid [place], pillsEncntr [place], Raphaelidis [address] [place] [address]. , [address], New infections w tel:[phone], [place] [address] [place], [address], [place] transmiss [address]. tel:[phone] tel:[phone] [facility] Encounter for Grupo Liu. Referring Parenthood [place] surveillance of [address] Provider: Of [facility] contraceptive [address], [place], Ak[place], [place], [address], Pratima R, [address] screen for [place]. [address], [place] infections w [place], [place], [address], [place] transmissContac [address]. tel:[phone] t w and tel:[phone] exposure to [id number] infect w a sexl mode of transmiss [facility] DysuriaEncntr [facility] [place] screen for - Ingrid. [address] Of Greater infections w [address], [place], sexl mode of [place], [place], [address] transmissNoninf [address], New lammatory tel:[phone] [place] [address], [place] vagina, tel:[phone] unspecifiedEnco 976211 unter for test, result negative [facility] Noninflammatory Raphaelidis Parenthood [place] disorder of -201 Ingrid. [address] Greater vagina, [address], [place], unspecifiedEncn [place], [place], [address] [place] [address], New infections w tel:[phone] [place], [place] [address], [place] transmissEncoun tel:[phone] ter for initial [phone] prescription of contraceptive pills [facility] Encntr screen Grupo Liu. Parenthood [place] for infections -201 [address] Of Greater w sexl mode of 6 St, [place], [place], [place], [address], [address] [place] [place], [place], [address], [place] tel:[phone] [facility] PT, Sep-2 Raphaelidis Parenthood [place] NegativeBVSTI Ingrid. [address] Screening [address], [place], [place], [address] [address], New tel:[phone] [place], [address], [place] tel:[phone] [facility] PT, Negative Sep-0 P[facility]te Consulting [facility] [place] 8 Katie. [address] Provider: Of [place] [address], [place], [place], [place], PPS[facility]. [address] [address]. , New tel:[phone] [place], [address], [place] tel:[phone] [facility] Anemia, Aug-0 Glaser Madison. [facility] ScreeningDysmen 7 [address] Of Greater orrhea 5 [facility], [place], [address]. [address] tel:[phone] St, [address] [place], [address], [place] tel:[phone] [facility] PT, NegativeSTI Aug-0 Glaser Madison. [facility] ScreeningBV 3 [address], [place], [place], [address]. [address] tel:[phone] St, [address] [place], [address], [place] tel:[phone] [facility] Anemia, Oct- Glaser Madison. [facility] ScreeningAB W/O 3- [address] Of Greater Comp, Complete 5 , [place], [place], [address]. [address] tel:[phone] St, [place] [address] [place], [address], [place] tel:[phone] [facility] Anemia, Vincent-2 Raphaelidis Referring Parenthood [place] ScreeningAB W/O 6 Ingrid. [address] Provider: Of [facility] Comp, [address], Ingrid [place], UnspecifiedBV [place], [place], Rap[place]ony [address] [address]. , [address] , New tel:[phone], [place], [address] [place], [address], [place] [address]. tel:+72 tel:[phone] [facility] PT, August- Av[facility] [place] NegativeYeast-v 1-201 Casie. [address] ulvovaginalBV [address] , [place], [place], [address] [address]. , [facility] tel:[phone] [place], [address], [place] tel:[phone] [facility] OCP, StartSTI Mar-0 Galser [place]. Parenthood [place] ScreeningBV 2-201 [address] 5 , [place], [place], [address]. [address] tel:[phone] [place] [phone] [place], [address], [place] tel:[phone] [facility] STI Dec-3 Glaser Madison. Parenthood [place] ExposureYeast-v 0-201 [address] Of Greater ulvovaginal 4 , [place], [place], [address]. [address] tel:[phone] , [place] [phone] [place], [address], [place] tel:[phone] [facility] STI Dec-1 Parete [facility] [place] ScreeningYeast- 1-201 Katie. [address] vulvovaginal [address] [place], [place], [place], [address] [address]. , [facility] tel:[phone] [place], [address], [place] tel:[phone] [facility] STI Oct-2 Glaser Madison. Parenthood [place] ExposureYeast-v 7-201 [address] Of Greater ulvovaginal 4 , [place], [place], [address]. [address] tel:[phone] , [facility] [address] [place], [address], [place] tel:[phone] [facility] PT, NegativeGYN Oct-0 [facility] [place] Exam, Routine Casie. [address] WWEFamily 4 [address] [place], [place], Planning [place], [place], [address] Counseling [address]. [facility] tel:[phone] [place], [address], [place] tel:[phone] [facility] Gonorrhea Oct-0 [facility]id[facility] [place] Casie. [address] Provider: Of [address], [place], PPSFL. [address] [address]. [facility] tel:[phone] [place], [address], [place] tel:[phone] [facility] Gonorrhea Oct-0 P[facility]te [facility] [place] Katie. [address], [place], [address] [address]. [facility] tel:[phone] [place], [address], [place] tel:[phone] [facility] Vaginal Sep-2 Parete [facility] [place] DischargeSTI Katie. [address] Of [facility] ScreeningYeast- 4 [place], [place], vulvovaginal [place], [address] [address]. [facility] tel:[phone] [place], [address], [place] tel:[phone] [facility] BV Aug-1 Glaser Madison. Parenthood [place] [address] Of [address] [place], [address]. [address] tel:[phone] [facility] [address] [place], [address], [place] tel:[phone] [facility] AnemiaPyeloneph Mar-2 Hemmer [facility] [place] ritis, [place] Of [facility], 4 [address]. [address] [place], Abnormal-NOS W [facility], [address] [facility] [address]. [place], tel:[phone], [place] [address] tel:[phone] [facility] BVOCP, Jun-1 Glaser Madison. Parenthood [place] SurveillancePT, [address] Of [address] [place], [address]. [address] tel:[phone] , [place] [address] [place], [address], [place] tel:[phone] [facility] Marybeth Bruce. Parenthood [place] 1 [address] [place], [place], [address] [address]. , [facility] tel:[phone] [place], [address], [place] tel:[phone] [facility] LABORATORY EXAM Alfredito Wallace. Parenthood [place] NOS 5-201 [address] Of [facility] 3 , [place], [place], [address]. [address] tel:[phone] [facility] [address] [place], [address], [place] tel:[phone] Family History Family Member Diagnosis Age At Onset Mother Hypertension 44 Maternal grandmother Hypertension Maternal grandmother 94 Maternal grandmother Melanoma 1st degree relative No hx of cancer of breast, colon, endometrium or ovary 1st degree relative No hx of venous thromboembolism 1st degree relative No hx of coronary heart disease (female <65, male <55) Paternal grandfather Coronary artery disease 63 Maternal grandmother Coronary artery disease Immunizations Vaccine Date Status Comments HPV administered Note: Check with pt. about completion of series? ; Source: New Immunization Record MMR administered Source: New Immunization Record Hepatitis B administered Source: New Immunization Record Hepatitis A administered Source: New Immunization Record Payers Payer name Insurance type Covered green party ID Authorization(s) [facility] CI [id number] Social History Type Description Quantity Date Captured Comments Alcohol Use Details Unknown Caffeine Use Details Unknown Tobacco Use Status Unknown Smoking Status Never smoker Sex Female Vital Signs Date / Height Weight BMI Pulse Blood Temperature Respiratory Body Head BMI Pulse Inhaled Time: Rate Pressure Rate Surface Circumference percentile Ox Ox Area No information Chief Complaint And Reason For Visit No information Reason For Referral Reason For Referral No information Plan Of Treatment Date Type Action Status Goal Dietary management education, guidance, and counseling completed History Of Present Illness Encounter Date Complaint History Of Present Illness No information Functional Status Date Functional Assessment No information Medications Administered Medication Instructions Dosage Effective Dates (start - stop) Status Comments No information Instructions Date Instruction Additional Information Dietary management education, Related to Body mass index (BMI) guidance, and counseling 39.0-39.9, adult Assessments Type Assessment Date No information Goals Health Concern Goal Type Priority Status Date No information Medical Equipment Description Device Dow Device Identifier Effective Dates (start - stop ) Status No information Mental Status Date Cognitive Assessment No information Health Concerns Observation Date No information Concern Status Date No information
--- NOTE | 2019-06-11 18:08 | ED ---
Course/Dx - Course Course Of Treatment: Patient was evaluated in the emergency department today for suicidal ideation. Patient was seen and examined their vital signs are stable and they were afebrile. Patient was distressed after learning she was unable to leave the emergency department after stating she had suicidal ideation to hospital staff although she entered the emergency department voluntarily. Patient became very agitated. Upon arrival to emergency department the patient was placed in a safe room, placed under observation and changed into hospital scrubs. Their belongings were collected and placed in a locked box. Laboratory studies were ordered for mental health clearance including urinalysis and toxicology. Labs were waived in the evaluation of this patient, and she was cleared for mental health evaluation and disposition by psychiatric services. after mental health patient will be discharged per dr farley. - Diagnoses Provider Diagnoses: Suicidal ideation Discharge ED - Sign-Out/Discharge Documenting (check all that apply): Receiving Sign-Out Receiving patient FROM: Asa Dong - Discharge Plan Condition: Stable Disposition: HOME Patient Education Materials: Anxiety (ED) Referrals: Godwin Cheney MD [Primary Care Provider] - Additional Instructions: Per completion of a mental health evaluation, you are cleared for release and do not require inpatient psychiatric hospitalization at this time. Please go to nearest emergency room or call 911 if safety concerns arise or condition worsens. Important Phone Numbers: Behavioral Services Unit ph:[phone] Suicide Prevention and Crisis Services ph:[phone] National Suicide Prevention Lifeline ph:[phone] XPDI (7175) [facility] ph:[phone] Alcoholics Anonymous ph:[phone] [facility] ph:[phone] [facility] Police ph:[phone] Recommendation: Return to ED, if needed or desired. Follow up with [facility] Children[facility] services on Friday. - Billing Disposition and Condition Condition: STABLE Disposition: Home
[2019-06-11 18:12] VITALS: BP 148/85
== END 2019-06-11 18:10 | disposition home or self-care (01) ==
LOC: ED 12:30
DX: R45.851 Suicidal ideations (principal); F41.9 Anxiety disorder, unspecified; F32.9 Major depressive disorder, single episode, unspecified
CPT/HCPCS: 99284